=== PATIENT | female | born 1955 | race Caucasian/White ===

== ENCOUNTER → 2017-12-19 12:47 | Outpatient (CLI) | payer OTHER, SELFPAY ==
--- NOTE | 2017-12-19 12:50 | RAD_ITS ---
STUDY: X-RAY CHEST REASON FOR EXAM: Female, 62 years old. Fever. Prior right mastectomy. TECHNIQUE: PA and lateral views of the chest. COMPARISON: Comparison is made with prior study dated February 04, 2017. FINDINGS: The patient is status post right mastectomy and right axillary dissection with reconstruction. A left-sided breast prosthesis is seen. Hyperinflation. Stable opacification of the right apex most likely secondary to prior radiation treatment and post radiation scarring. Stable mild increased markings at the lung bases suggestive of scarring. No acute infiltration is seen. Normal size heart. Normal mediastinum and mariel. Normal visualized pulmonary arteries. There is atherosclerotic calcification of the aortic arch with tortuosity. There are degenerative changes of the visualized thoracic spine. Normal visualized ribs, clavicles, and shoulders. There is no demonstrated abnormality of the visualized soft tissue structures of the upper abdomen. RAD/Chest PA and Lateral IMPRESSION: Stable examination. No acute pulmonary infiltrate is seen. Electronically Signed: Dilip Doe MD at 13:34 EST Tel [phone], Service support ,
== END ==
PROVIDERS: Family Provider Internal Medicine; PCP Internal Medicine; Visit Provider Internal Medicine
DX: R50.9 Fever, unspecified (principal); Z90.11 Acquired absence of right breast and nipple
CPT/HCPCS: 71046

== ENCOUNTER → 2018-09-05 11:02 | Outpatient (CLI) | payer OTHER, SELFPAY ==
--- NOTE | 2018-09-05 11:05 | RAD_ITS ---
STUDY: X-RAY CHEST REASON FOR EXAM: Female, 63 years old. Sternal fracture, prior mastectomy TECHNIQUE: PA and lateral views of the chest. COMPARISON: 12/19/2017 FINDINGS: Multiple surgical clips of the right axilla and chest identified. Lungs are hyperexpanded with coarsened interstitial lung markings but no airspace consolidation. There is pleural fibrotic thickening of the right lung apex. Normal size heart. Normal mediastinum and mariel. Normal visualized pulmonary arteries. There is atherosclerotic calcification of the aortic arch with tortuosity. There is a cortical step-off of the upper sternum (2 cm below the sternomanubrial joint) with approximately 3 mm cortical step-off. There is diffuse osteopenia. There is no demonstrated abnormality of the visualized soft tissue structures of the upper abdomen. RAD/Chest PA and Lateral IMPRESSION: 1. Minimally displaced sternal fracture. 2. Operative changes of the right breast/axilla. 3. Stable right apical pleural thickening. Electronically Signed: Daniel Rosario MD at 19:14 EST , Service support ,
== END ==
PROVIDERS: Family Provider Internal Medicine; PCP Internal Medicine; Visit Provider Internal Medicine
DX: S22.20XA Unspecified fracture of sternum, initial encounter for closed fracture (principal); X58.XXXA Exposure to other specified factors, initial encounter; Y93.9 Activity, unspecified; Y92.9 Unspecified place or not applicable; Y99.9 Unspecified external cause status
CPT/HCPCS: 71046

== ENCOUNTER → 2018-10-06 12:32 | Outpatient (CLI) | payer OTHER, SELFPAY ==
--- NOTE | 2018-10-06 12:51 | RAD_ITS ---
STUDY: X-RAY CHEST REASON FOR EXAM: Female, 63 years old. History of vasculitis, microscopic polyangiitis, lungs filled with blood, shortness of breath TECHNIQUE: PA and lateral views of the chest. COMPARISON: 09/05/2018 FINDINGS: Multiple surgical clips of the right axilla and chest identified. Lungs are hyperexpanded with coarsened interstitial lung markings but no airspace consolidation. There is pleural fibrotic thickening of the right lung apex. Normal size heart. Normal mediastinum and mariel. Normal visualized pulmonary arteries. There is atherosclerotic calcification of the aortic arch with tortuosity. There is a cortical step-off of the upper sternum (2 cm below the sternomanubrial joint) with approximately 3 mm cortical step-off. There is diffuse osteopenia. There is no demonstrated abnormality of the visualized soft tissue structures of the upper abdomen. RAD/Chest PA and Lateral IMPRESSION: 1. Since 09/05/2018, stable exam. 2. Minimally displaced sternal fracture. 3. Operative changes of the right breast/axilla. 4. Stable right apical pleural thickening. Electronically Signed: Daniel Rosario MD at 10:32 EST , Service support ,
== END ==
PROVIDERS: Family Provider Internal Medicine; PCP Internal Medicine Pulmonary Disease; Visit Provider Internal Medicine Pulmonary Disease
DX: R04.2 Hemoptysis (principal)
CPT/HCPCS: 71046

== ENCOUNTER → 2019-05-08 13:20 | Outpatient (CLI) | payer OTHER, SELFPAY ==
--- NOTE | 2019-05-08 13:28 | BD_ITS ---
STUDY: DUAL ENERGY X-RAY ABSORPTIOMETRY / DXA REASON FOR EXAM: Female, 64 years old. Early menopause. Loss of height. TECHNIQUE: Bone Mineral Density (BMD) measurements of lumbar spine and bilateral hips were obtained. COMPARISON: Comparison is made with prior study dated January 18, 2017. FINDINGS: Lumbar Spine (L1-L4): g/cm2 (1.113) / T-score (-0.4) / Z-score (1.0) Findings are suggestive of normal bone density with a low fracture risk. Left Femur Total: g/cm2 (0.902) / T-score (-0.8) / Z-score (0.2) Left Femoral Neck: g/cm2 (0.859) / T-score (-1.3) / Z-score (0.1) Right Femur Total: g/cm2 (0.902) / T-score (-0.8) / Z-score (0.3) Right Femoral Neck: g/cm2 (0.784) / T-score (-1.8) / Z-score (-0.5) The T-Scores on the most recent prior examination were: Lumbar Spine (L1-L4): There has been improvement of bone density since the previous examination. Left Femur Total: which represents a worsening of 6.5%. Right Femur Total: which represents a worsening of 7%. BD/Dexa Bone Density Study IMPRESSION: The patient is considered osteopenic as outlined below according to World Joselo Organization (WHO) criteria with a moderate fracture risk. There has been worsening of bone density since the previous examination. Reference Information: The T-score is the number of standard deviations above or below the standard which is normal for young adults at their peak bone mineral density. The World Health Organization (WHO) interprets the T-scores as follows: Above -1 Normal bone density Between -1 and -2.5 Osteopenia Equal to / or below -2.5 Osteoporosis As a practical clinical guideline, osteopenia may be graded as follows: Mild -1 through -1.5 Moderate -1.6 through -2.0 Severe -2.1 through -2.4 The Z-score is the number of standard deviations above or below age-matched controls. A Z-score of less than -1.5 would be considered abnormal. References: 1. NIH Osteoporosis and Related Bone Diseases http://www.osteo.org 2. International Society for Clinical Densitometry http://www.iscd.org 3. National Osteoporosis Foundation http://www.nof.org Electronically Signed: Dilip Doe, at 14:41 EDT , Service support ,
== END ==
PROVIDERS: Family Provider Internal Medicine; PCP Internal Medicine; Referring Provider Internal Medicine; Visit Provider Internal Medicine
DX: Z78.0 Asymptomatic menopausal state (principal)
CPT/HCPCS: 77080

== ENCOUNTER → 2019-05-14 06:32 | Outpatient (CLI) | payer OTHER, SELFPAY ==
--- NOTE | 2019-05-14 06:46 | ECHOCS_ITS ---
Reason For Study: ABNL EKG Procedure This was a 2D Doppler, Color Flow transthoracic echocardiogram. The study was technically difficult. Contrast injection was performed. Exam performed in department. Left Ventricle Normal LV size. Left ventricular systolic function is normal. The estimated ejection fraction is 60 %. Stage 1 diastolic dysfunction. No regional wall motion abnormalities noted. Right Ventricle Normal RV size. Normal systolic function. Atria Normal left atrium. Normal right atrium. Mitral Valve Normal mitral valve. Tricuspid Valve Normal tricuspid valve. Mild tricuspid valve insufficiency. Aortic Valve Trisinus/trileaflet aortic valve. Pulmonic Valve Normal pulmonic valve. Great Vessels Normal aortic root. The pulmonary artery is normal size. Normal inferior vena cava. Pericardium/Pleural No pericardial effusion. Medication Diluted definity 4.0ml given slow IV push to enhance endocardial definition. MMode/2D Measurements & Calculations LVIDd: 5.2 cm IVSd: 1.1 cm Ao root diam: 3.3 cm LVIDs: 3.6 cm LVPWd: 1.2 cm RVDd: 3.5 cm FS: 29.7 % LAV(MOD-bp): 66.4 ml LA A4 area: 18.8 cm2 LA dimension(2D): 3.4 cm LAV(MOD-bp) Indexed: 35.0 ml/m2 LAV(MOD-sp2): 62.3 ml LAV(MOD-sp4): 56.8 ml RA A4 area: 15.7 cm2 Time Measurements MV dec time: 0.18 sec Doppler Measurements & Calculations MV E max felipe: 67.4 cm/sec Lat Peak E' Felipe: 9.4 cm/sec Med Peak E' Felipe: 3.8 cm/sec MV A max felipe: 84.6 cm/sec E/E' lat: 7.2 E/E' med: 17.7 MV E/A: 0.80 Ao V2 max: 147.7 cm/sec LV V1 max: 93.1 cm/sec PA V2 max: 74.6 cm/sec Ao max P.7 mmHg LV V1 max P.5 mmHg TR max felipe: 250.9 cm/sec TR max P.2 mmHg Interpretation Summary Normal LV size. Left ventricular systolic function is normal. The estimated ejection fraction is 60 %. Stage 1 diastolic dysfunction. Contrast injection was performed. Ordering Physician: Kori Baum Referring Physician: Kori Baum Performed By: Marifer Torres RDCS, RVT
--- NOTE | 2019-05-14 17:34 | STRESSREP ---
Stress Test Report Exercise myocardial perfusion stress test. 64-year-old lady with an abnormal EKG. Medications carvedilol and Norvasc. Stress protocol. Resting EKG demonstrates sinus bradycardia with a rate of 56 bpm T wave inversions are noted in lead V3 through V6. The patient exercised according to regular Franky protocol for total duration of 7 minutes and 45 seconds. The maximum heart rate attained was 112 bpm which was 71% of maximum predicted heart rate and maximum workload was 9.7 metabolic equivalents. Patient maintained sinus rhythm throughout the recording. At rest T wave inversions were noted as noted above and at peak exercise T wave inversions persisted. There were no ST changes noted to suggest ischemia. The test was terminated due to leg discomfort and shortness of breath. The resting blood pressures 128/84 with a peak blood pressure 144/88 mmHg. Myocardial perfusion protocol. 11.7 mCi of technetium 99m sestamibi was injected at rest. The patient exercised for 7 minutes 45 seconds at peak exercise 32.5 mCi of technetium 99m sestamibi was injected stress images were obtained stress and rest images are reconstructed and compared in the short axis vertical and horizontal long axis. Gated images were also obtained Perfusion SPECT analysis: Review of the stress images demonstrate normal uptake of tracer noted in all areas of the myocardium. The resting images similar demonstrate normal uptake in all areas of the myocardium no previous infarct is noted. Gated SPECT analysis: The gated ejection fraction is noted to be 73%. Conclusion: Normal exercise myocardial perfusion stress test at a high workload. No clinical angina noted. Occasional premature ventricular complex noted.
== END ==
PROVIDERS: Family Provider Internal Medicine; PCP Internal Medicine; Referring Provider Internal Medicine; Visit Provider Internal Medicine
DX: R94.31 Abnormal electrocardiogram [ECG] [EKG] (principal)
CPT/HCPCS: 78452; 93017; 93306; A9500; Q9957; A4216; C8929

== ENCOUNTER → 2019-07-17 08:42 | Outpatient (CLI) | payer OTHER, SELFPAY ==
--- NOTE | 2019-07-17 08:45 | RAD_ITS ---
STUDY: X-RAY - LEFT FOOT CLINICAL: Female, 64 years old. Pain and swelling TECHNIQUE: 3 view(s) of the foot. COMPARISON: None. FINDINGS: Periosteal reaction is noted along the lateral base of the fifth metatarsal which could be related to osteomyelitis. Hindfoot osteoarthritis. No fractures or osteolytic lesions. Plantar calcaneus spur. RAD/Foot min 3 Views IMPRESSION: Periosteal reaction is noted along the lateral base of the fifth metatarsal which could be related to osteomyelitis. If there is further concern for osteomyelitis, consider correlation with three-phase bone scan or contrast-enhanced MRI. Electronically Signed: Luke Whelan MD at 20:42 EDT Tel , Service support ,
--- NOTE | 2019-07-17 08:45 | RAD_ITS ---
STUDY: X-RAY - RIGHT HUMERUS REASON FOR EXAM: Female, 64 years old. Pain and breast cancer without injury TECHNIQUE: 2 view(s) of the humerus. COMPARISON: None. FINDINGS: Normal visualized humerus. There is no demonstrated fracture or osseous destructive process. There is no demonstrated soft tissue abnormality. Axillary clips. RAD/Humerus min 2 Views IMPRESSION: No osseous abnormality is evident. Electronically Signed: Luke Whelan MD at 21:36 EDT Tel , Service support ,
== END ==
PROVIDERS: Family Provider Internal Medicine; PCP Internal Medicine; Referring Provider Internal Medicine; Visit Provider Internal Medicine
DX: M79.672 Pain in left foot (principal); M79.601 Pain in right arm
CPT/HCPCS: 73060; 73630

== ENCOUNTER → 2019-07-18 12:14 | Outpatient (CLI) | payer OTHER, SELFPAY ==
[2019-07-18 12:23] LABS: Absolute Lymphocyte Count 1.31 X10^3/uL (0.83-4.51); Absolute Neutrophil Count 2.8 X10^3/uL (2.0-7.7); Basophil# 0.02 X10^3/uL; Basophil% 0.4 % (0-1); Hematocrit 40.4 % (37-47); Hemoglobin 13.3 g/dL (12.0-15.0); Lymphocyte # 1.31 X10^3/ul (4.0); Lymphocyte % 26.1 % (19-41); Mean Corp Hgb Conc 32.9 g/dL (32-36); Mean Corpuscular Hgb 28.7 pg (27.0-32.0); Mean Corpuscular Volume 87.1 fL (81-99); Mean Platelet Vol. 9.6 fl (6.2-12.0); Monocyte# 0.65 X10^3/uL; NRBC Flagged by Analyzer 0 % (0-5); Neutrophil # 2.81 X10^3/uL (2.7-7.7); Neutrophil % 56.1 % (47-70); Platelet Count 304 K/mm3 (150-450); RBC Distribution Width CV 13.3 % (11.6-14.6); RBC Distribution Width SD 42.5 fl (35.1-43.9); Red Blood Count 4.64 M/mm3 (4.2-5.4)
[2019-07-18 12:33] LABS: Erythrocyte Sedimentation Rate 9 mm/hr (0-30)
[2019-07-18 12:41] LABS: Anion Gap 11 (5-15); BUN 16 mg/dL (7-18); BUN/Creat Ratio 23.2 RATIO (10-20); CRP 3.56 mg/L (0.0-3.0); Calcium,Total 8.6 mg/dL (8.5-10.1); Chloride 102 mmol/L (98-107); Creatinine, Serum 0.69 mg/dL (0.55-1.02); EST Glomerular Filtration Rate 91 mL/min (>60); Est Glom Filt Rate - Afr Amer 111 mL/min (>60); Glucose 117 mg/dL (74-106); Potassium 3.7 mmol/L (3.5-5.1); Sodium Level 143 mmol/L (136-145)
== END ==
PROVIDERS: Family Provider Internal Medicine; PCP Internal Medicine; Referring Provider Internal Medicine; Visit Provider Internal Medicine
DX: M79.672 Pain in left foot (principal)
CPT/HCPCS: 80048; 85025; 85652; 86140

== ENCOUNTER → 2019-07-18 14:05 | Outpatient (CLI) | payer OTHER, SELFPAY ==
--- NOTE | 2019-07-18 14:26 | MRI_ITS ---
STUDY: MRI LEFT FOREFOOT WITH AND WITHOUT CONTRAST REASON FOR EXAM: Female, 64 years old. Pain of the fifth toe. Patient is on immune suppressant medication. TECHNIQUE: Standardized fat and water weighted pulse sequences were obtained in all 3 orthogonal planes, post contrast administration. IV Dotarem 15 was administered for the contrast portion of the examination. COMPARISON: X-ray July 17, 2019 FINDINGS: There is degenerative arthrosis of the metatarsophalangeal joint of the hallux. There is cystic change of the first metatarsal head. Normal tibial and fibular sesamoids, with normal sesamoids-first metatarsal articulations. Normal interphalangeal joint of the hallux. Normal proximal and distal phalanges of the great toe. Normal medial and lateral heads of the flexor hallucis brevis tendons. Normal flexor and extensor hallucis longus tendons. Normal second through fifth metatarsophalangeal (MTP) joints. Normal interphalangeal joints of the second through fifth toes. Normal proximal, middle and distal phalanges of the second through fifth toes. Normal flexor and extensor tendons of the second through fifth toes. Normal first through fourth intermetatarsal spaces. There is marrow edema with enhancement of the distal shaft and neck of the fifth metatarsal, series 8 and 9 image 03/14. There is cystic change at the fifth metatarsal head. There is mild spurring at the fifth MTP joint. Normal intrinsic muscles of the forefoot. There is no demonstrated soft tissue abnormality. There is no enhancing mass. MRI/Lower Ext No Joint W/WO Cont IMPRESSION: Marrow edema and enhancement of the distal fifth metatarsal consistent with stress injury. Arthritic change at the first and fifth MTP joints. Electronically Signed: Eladio Souza MD at 16:02 EDT , Service support ,
== END ==
PROVIDERS: Family Provider Internal Medicine; PCP Internal Medicine; Referring Provider Internal Medicine; Visit Provider Internal Medicine
DX: M79.672 Pain in left foot (principal)
CPT/HCPCS: 73720; A9575

== ENCOUNTER → 2019-09-06 09:54 | Outpatient (CLI) | payer OTHER, SELFPAY ==
--- NOTE | 2019-09-06 09:55 | NM_ITS ---
CLINICAL: 64-year-old female with reported history of primary breast carcinoma WHOLE BODY 99m Tc MDP RADIONUCLIDE BONE SCINTIGRAPHY COMPARISON: Previous whole body bone scintigraphy study dated 12/09/2015 FINDINGS: Following the intravenous administration of 26.0 mCi of 99m Tc MDP, whole body bone images reveal: 1. Increased radiopharmaceutical concentration is currently identified in the acromioclavicular and sternoclavicular compartments of both shoulders, bilateral elbow articulations, right hip involving the inferior posterior acetabulum, right-left knees, ankles bilaterally, the right-left mid and forefoot, both sacroiliac joints. 2. The remaining skeletal structures are scintigraphically unremarkable with normal-appearing renal images and urinary bladder activity identified. The previously identified fifth lumbar vertebral increase in tracer distribution is not apparent on the present examination. NM/Bone Scan Whole Body IMPRESSION: 1. The increased radiopharmaceutical concentration defined in the bilateral shoulders, right and left elbows, right hip, knees and ankles bilaterally, right-left mid and forefoot and sacroiliac joints is commensurate with degenerative arthritis. 2. Overall compared to the previous whole body bone scintigraphy study dated 12/09/2015, there is interval resolution of the previously defined fifth lumbar vertebra compression fracture with otherwise no significant interval change. There is no current typical scintigraphic evidence of diffuse skeletal metastatic disease. Electronically Signed: Markell Singleton DO at 9:55 EST Tel , Service support ,
== END ==
PROVIDERS: Family Provider Internal Medicine; PCP Internal Medicine; Referring Provider Internal Medicine; Visit Provider Internal Medicine
DX: Z12.31 Encounter for screening mammogram for malignant neoplasm of breast (principal); R74.8 Abnormal levels of other serum enzymes
CPT/HCPCS: 78306

== ENCOUNTER → 2019-11-02 11:03 | Outpatient (CLI) | payer OTHER, SELFPAY ==
--- NOTE | 2019-11-02 11:08 | RAD_ITS ---
STUDY: X-RAY - LEFT FOOT CLINICAL: Female, 64 years old. DROPPED A HEAVY OBJECT ON GREAT TOE 2 DAYS AGO TECHNIQUE: 3 view(s) of the foot. COMPARISON: Comparison is made with prior examination July 17, 2019. FINDINGS: There is a plantar calcaneal spur. Normal visualized subtalar, talonavicular, calcaneocuboid, tarsal and tarsometatarsal articulations. Normal metatarsi. Normal metatarsophalangeal joint of the great toe. Normal tibial and fibular sesamoid bones. Normal interphalangeal joint of the great toe. Nondisplaced transverse fracture along the distal portion of the proximal phalanx of the great toe. Normal second through fifth metatarsophalangeal joints. Normal interphalangeal joints and phalanges of the lesser toes. Soft tissue swelling overlying the great toe. Focal soft tissue defect is seen overlying the distal tuft of the distal phalanx of the great toe. RAD/Foot min 3 Views IMPRESSION: Nondisplaced transverse fracture in the distal aspect of the proximal fillings of the great toe with overlying soft tissue changes as described. Electronically Signed: Dilip Doe, at 12:16 EST , Service support ,
== END ==
PROVIDERS: PCP Internal Medicine; Referring Provider Internal Medicine; Visit Provider Internal Medicine
DX: M79.672 Pain in left foot (principal)
CPT/HCPCS: 73630

== ENCOUNTER → 2019-11-16 09:52 | Outpatient (CLI) | payer OTHER, SELFPAY ==
[2019-11-16 10:17] LABS: Erythrocyte Sedimentation Rate 6 mm/hr (0-30)
[2019-11-16 10:21] LABS: Absolute Lymphocyte Count 1.37 X10^3/uL (0.83-4.51); Absolute Neutrophil Count 3.7 X10^3/uL (2.0-7.7); Basophil# 0.02 X10^3/uL; Basophil% 0.3 % (0-1); Eosinophil# 0.31 X10^3/uL; Hematocrit 44.8 % (37-47); Hemoglobin 14.7 g/dL (12.0-15.0); Lymphocyte # 1.37 X10^3/ul (4.0); Lymphocyte % 22.3 % (19-41); Mean Corp Hgb Conc 32.8 g/dL (32-36); Mean Corpuscular Hgb 28.7 pg (27.0-32.0); Mean Corpuscular Volume 87.5 fL (81-99); Mean Platelet Vol. 9.9 fl (6.2-12.0); Monocyte# 0.68 X10^3/uL; Monocyte% 11.1 % (0-10); NRBC Flagged by Analyzer 0 % (0-5); Neutrophil # 3.74 X10^3/uL (2.7-7.7); Neutrophil % 60.8 % (47-70); Platelet Count 325 K/mm3 (150-450); RBC Distribution Width CV 13.2 % (11.6-14.6); RBC Distribution Width SD 42.4 fl (35.1-43.9); Red Blood Count 5.12 M/mm3 (4.2-5.4); White Blood Count 6.2 K/mm3 (4.4-11.0)
[2019-11-16 11:27] LABS: ALB/GLOB Ratio 1.3 RATIO (0.9-2.4); AST(SGOT) 16 U/L (15-37); Alanine Aminotransfer ALT/SGPT 29 U/L (13-56); Albumin, Serum 3.8 g/dL (3.2-5.0); Alkaline Phosphatase 125 U/L (45-117); Anion Gap 4 (5-15); BUN 17 mg/dL (7-18); BUN/Creat Ratio 19.6 RATIO (10-20); Calcium,Total 9.4 mg/dL (8.5-10.1); Chloride 107 mmol/L (98-107); Creatinine, Serum 0.87 mg/dL (0.55-1.02); EST Glomerular Filtration Rate 70 mL/min (>60); Est Glom Filt Rate - Afr Amer 85 mL/min (>60); Glucose 74 mg/dL (74-106); Potassium 3.4 mmol/L (3.5-5.1); Protein, Total 6.8 g/dL (6.4-8.2); Sodium Level 142 mmol/L (136-145)
== END ==
PROVIDERS: PCP Internal Medicine; Referring Provider Internal Medicine; Visit Provider Internal Medicine
DX: L03.90 Cellulitis, unspecified (principal)
CPT/HCPCS: 80053; 85025; 85652; 86140

== ENCOUNTER → 2019-11-16 15:49 | Outpatient (CLI) | payer OTHER, SELFPAY ==
--- NOTE | 2019-11-16 15:52 | RAD_ITS ---
STUDY: X-RAY LEFT FOOT, FIRST TOE REASON FOR EXAM: Female, 64 years old. INFECTION, PT DROPPED A PIECE OF FIREWOOD ON TOES 2 WEEKS AGO, SWELLING AND REDNESS STARTED 1 DAY AGO, PT IS ON IMMUNOSUPRESSANTS TECHNIQUE: 3 view(s) of the toe were obtained. COMPARISON: None. FINDINGS: Hypertrophic changes of the head of the first metatarsal. There is arthrosis of the metatarsophalangeal (M.T.P.) joint. Mild degenerative changes of the interphalangeal joint. Acute transverse distal diaphyseal fracture of the proximal phalanx of the great toe mild dorsal displacement and angulation with callus forming. Diffuse soft tissue swelling. RAD/Toe(s) Min 2 Views IMPRESSION: Acute transverse distal diaphyseal fracture of the proximal phalanx of the great toe with mild dorsal displacement and angulation with callus forming. Degenerative arthrosis of the first metatarsophalangeal joint. Mild degenerative changes of the interphalangeal joint. Electronically Signed: Brittaney Houser MD at 16:27 EST , Service support ,
== END ==
PROVIDERS: PCP Internal Medicine; Referring Provider Internal Medicine; Visit Provider Internal Medicine
DX: L03.90 Cellulitis, unspecified (principal)
CPT/HCPCS: 73660

== ENCOUNTER → 2019-11-19 14:08 | Outpatient (CLI) | payer OTHER, SELFPAY ==
[2019-11-19 14:22] VITALS: BP 128/83; PULSE 66; RESP 16; TEMP 36.4; O2SAT 97; BMI 25.0
[2019-11-19] MEDS: levoFLOXacin IV 500 MG/100 ML BAG 100 MG IV (14:53)
== END ==
PROVIDERS: PCP Internal Medicine; Referring Provider Internal Medicine; Visit Provider Internal Medicine
DX: L08.9 Local infection of the skin and subcutaneous tissue, unspecified (principal)
CPT/HCPCS: 96365; 96366; J7050; A4216

== ENCOUNTER → 2019-11-20 11:32 | Outpatient (CLI) | payer OTHER, SELFPAY ==
[2019-11-19 14:22] VITALS: BMI 25.0
[2019-11-20 11:46] VITALS: BP 128/70; PULSE 58; RESP 16; TEMP 36.4; O2SAT 98; BMI 25.0
[2019-11-20] MEDS: levoFLOXacin IV 500 MG/100 ML BAG 100 MG IV (12:06)
== END ==
PROVIDERS: PCP Internal Medicine; Referring Provider Internal Medicine; Visit Provider Internal Medicine
DX: L08.9 Local infection of the skin and subcutaneous tissue, unspecified (principal)
CPT/HCPCS: 96365; J7050; A4216

== ENCOUNTER → 2019-11-21 10:50 | Outpatient (CLI) | payer OTHER, SELFPAY ==
[2019-11-19 14:22] VITALS: BMI 25.0
[2019-11-20 11:46] VITALS: BMI 25.0
[2019-11-21 11:02] VITALS: BP 120/82; PULSE 63; RESP 18; TEMP 36.2; O2SAT 100; BMI 24.3
[2019-11-21] MEDS: levoFLOXacin IV 500 MG/100 ML BAG 100 MG IV (11:13)
[2019-11-21 12:28] VITALS: BP 108/68; PULSE 65; RESP 16
== END ==
PROVIDERS: PCP Internal Medicine; Referring Provider Internal Medicine; Visit Provider Internal Medicine
DX: L08.9 Local infection of the skin and subcutaneous tissue, unspecified (principal)
CPT/HCPCS: 96365; J7050; A4216

== ENCOUNTER → 2019-11-22 09:03 | Outpatient (CLI) | payer OTHER, SELFPAY ==
[2019-11-21 11:02] VITALS: BMI 24.3
[2019-11-22 09:11] VITALS: BP 124/69; PULSE 60; RESP 16; TEMP 36.4; O2SAT 98; BMI 24.3
[2019-11-22] MEDS: levoFLOXacin IV 500 MG/100 ML BAG 100 MG IV (09:21)
== END ==
PROVIDERS: PCP Internal Medicine; Referring Provider Internal Medicine; Visit Provider Internal Medicine
DX: L08.9 Local infection of the skin and subcutaneous tissue, unspecified (principal)
CPT/HCPCS: 96365; J7050; A4216

== ENCOUNTER → 2019-11-23 13:23 | Outpatient (CLI) | payer OTHER, SELFPAY ==
[2019-11-22 09:11] VITALS: BMI 24.3
[2019-11-23] MEDS: levoFLOXacin IV 500 MG/100 ML BAG 100 MG IV (13:42)
[2019-11-23 13:43] VITALS: BP 128/75; PULSE 66; RESP 163; TEMP 36.7; BMI 24.3
[2019-11-23 15:00] VITALS: BP 123/74; PULSE 70; RESP 16
== END ==
PROVIDERS: PCP Internal Medicine; Referring Provider Internal Medicine; Visit Provider Internal Medicine
DX: L08.9 Local infection of the skin and subcutaneous tissue, unspecified (principal)
CPT/HCPCS: 96365; J7050; A4216

== ENCOUNTER → 2020-01-23 13:19 | Outpatient (CLI) | payer OTHER, SELFPAY ==
[2019-11-23 13:43] VITALS: BMI 24.3
[2020-01-23 13:12] VITALS: BP 135/70; PULSE 60; RESP 14; TEMP 36.3; O2SAT 100; BMI 25.8
[2020-01-23] MEDS: 0.9% NaCl IVPB Med Flush (250 mL) 15 ML IV (13:25)
[2020-01-23] MEDS: 0.9% NaCl Peripheral Flush Adult/Peds IV (13:26)
[2020-01-23] MEDS: levoFLOXacin IV 500 MG/100 ML BAG 100 MG IV (13:26)
[2020-01-23 14:51] VITALS: BP 130/78; PULSE 61; O2SAT 97
== END ==
PROVIDERS: PCP Internal Medicine; Referring Provider Internal Medicine; Visit Provider Internal Medicine
DX: L08.9 Local infection of the skin and subcutaneous tissue, unspecified (principal)
CPT/HCPCS: 96365; 96366; J7050; A4216

== ENCOUNTER → 2020-01-24 12:59 | Outpatient (CLI) | payer OTHER, SELFPAY ==
[2019-11-23 13:43] VITALS: BMI 24.3
[2020-01-23 13:12] VITALS: BMI 25.8
[2020-01-24 13:09] VITALS: BP 139/81; PULSE 61; RESP 16; TEMP 35.9; O2SAT 100; BMI 25.8
[2020-01-24] MEDS: levoFLOXacin IV 500 MG/100 ML BAG 100 MG IV (13:19)
[2020-01-24] MEDS: 0.9% NaCl IVPB Med Flush (250 mL) 15 ML IV (13:19)
[2020-01-24] MEDS: 0.9% NaCl Peripheral Flush Adult/Peds IV (13:19)
== END ==
PROVIDERS: PCP Internal Medicine; Referring Provider Internal Medicine; Visit Provider Internal Medicine
DX: L08.9 Local infection of the skin and subcutaneous tissue, unspecified (principal)
CPT/HCPCS: 96365; 96366; J7050; A4216

== ENCOUNTER → 2020-01-25 13:00 | Outpatient (CLI) | payer OTHER, SELFPAY ==
[2019-11-23 13:43] VITALS: BMI 24.3
[2020-01-24 13:09] VITALS: BMI 25.8
[2020-01-25] MEDS: 0.9% NaCl IVPB Med Flush (250 mL) 15 ML IV (13:33)
[2020-01-25] MEDS: levoFLOXacin IV 500 MG/100 ML BAG 100 MG IV (13:33)
[2020-01-25 13:34] VITALS: BP 127/67; PULSE 63; RESP 16; TEMP 37.2; O2SAT 99; BMI 25.8
== END ==
PROVIDERS: PCP Internal Medicine; Referring Provider Internal Medicine; Visit Provider Internal Medicine
DX: L08.9 Local infection of the skin and subcutaneous tissue, unspecified (principal)
CPT/HCPCS: 96365; J7050

== ENCOUNTER → 2020-01-28 09:58 | Outpatient (CLI) | payer OTHER, SELFPAY ==
[2019-11-23 13:43] VITALS: BMI 24.3
[2020-01-25 13:34] VITALS: BMI 25.8
--- NOTE | 2020-01-28 10:04 | MRI_ITS ---
STUDY: MRI LEFT FOREFOOT WITH AND WITHOUT CONTRAST REASON FOR EXAM: Left foot swelling with infection of the fifth toe since July, fracture the great toe in October, evaluate for osteomyelitis. TECHNIQUE: Standardized fat and water weighted pulse sequences were obtained in all 3 orthogonal planes, post contrast administration. IV Dotarem 15ml was administered for the contrast portion of the examination. COMPARISON: Radiographs 11/16/2019 and 11/02/2019, and MRI images 07/18/2019. FINDINGS: There is mild arthrosis of the metatarsophalangeal joint of the hallux with mild chondral thinning and mild subchondral cystic change of the first metatarsal head (T2 series 4 image 14). Normal tibial and fibular sesamoids, with normal sesamoids-first metatarsal articulations. Normal interphalangeal joint of the hallux. There is interval development of a nondisplaced fracture of the first proximal phalanx since the prior MRI study with callus formation (inversion recovery sagittal images 22-24). Normal medial and lateral heads of the flexor hallucis brevis tendons. Normal flexor and extensor hallucis longus tendons. Normal second through fifth metatarsophalangeal (MTP) joints. Normal interphalangeal joints of the second through fifth toes. Normal proximal, middle and distal phalanges of the second through fifth toes. There specifically is no bone edema of the phalanges of the fifth toe to indicate osteomyelitis. Normal flexor and extensor tendons of the second through fifth toes. Normal first through fourth intermetatarsal spaces. There is mild cystic change of the head of the fifth metatarsal (inversion recovery sagittal image 7) as on the prior study. There is no signal alteration of the metatarsals to indicate osteomyelitis. There is mild arthrosis of the fourth and fifth tarsometatarsal articulations with mild chondral thinning and mild subchondral cystic change (inversion recovery sagittal images 10-12) as on the prior study. There is mild arthrosis of the second and third tarsometatarsal articulations with mild chondral thinning and mild subchondral bone edema of the distal lateral and middle cuneiforms (inversion recovery sagittal images 12-19) as on the prior study. Normal intrinsic muscles of the forefoot. There is callus formation at the plantar and lateral aspects of the fifth metatarsophalangeal joint (T1 series 5 images 12-15) as on the prior study. There is no contrast enhancing fluid collection to indicate soft tissue abscess. There is mild edema in the subcutis adipose base of the first toe. MRI/Lower Ext No Joint W/WO Cont IMPRESSION: Callus formation at the plantar and lateral aspects of the fifth metatarsophalangeal joint without demonstrated soft tissue abscess. No demonstrated osteomyelitis. Healing fracture of the first proximal phalanx. Mild arthrosis of the first metatarsophalangeal joint and second through fifth tarsometatarsal articulations. Electronically Signed: Ralph Mejía MD at 12:41 EDT Tel , Service support ,
[2020-01-28 10:35] LABS: CREATININE FINGERSTICK 0.8 mg/dL (0.55-1.02); EGFR FINGERSTICK > 60.0000 mL/min (>60)
== END ==
PROVIDERS: PCP Internal Medicine; Referring Provider Internal Medicine; Visit Provider Internal Medicine
DX: M79.89 Other specified soft tissue disorders (principal)
CPT/HCPCS: 73720; A9575

== ENCOUNTER → 2020-03-03 13:12 | Outpatient (CLI) | payer OTHER, SELFPAY ==
[2020-01-25 13:34] VITALS: BMI 25.8
[2020-03-03] MEDS: 0.9% NaCl IVPB Med Flush (250 mL) 15 ML IV (13:29)
[2020-03-03] MEDS: levoFLOXacin IV 500 MG/100 ML BAG 100 MG IV (13:35)
[2020-03-03 13:38] VITALS: BP 139/77; PULSE 69; RESP 16; TEMP 36; O2SAT 100; BMI 25.8
[2020-03-03] MEDS: 0.9% NaCl Peripheral Flush Adult/Peds IV (13:45)
== END ==
PROVIDERS: PCP Internal Medicine; Referring Provider Internal Medicine; Visit Provider Internal Medicine
DX: L08.9 Local infection of the skin and subcutaneous tissue, unspecified (principal)
CPT/HCPCS: 96365; 96366; J7050; A4216

== ENCOUNTER → 2020-03-04 14:32 | Outpatient (CLI) | payer OTHER, SELFPAY ==
[2020-01-25 13:34] VITALS: BMI 25.8
[2020-03-03 13:38] VITALS: BMI 25.8
[2020-03-04] MEDS: 0.9% NaCl Peripheral Flush Adult/Peds IV (14:46)
[2020-03-04] MEDS: levoFLOXacin IV 500 MG/100 ML BAG 100 MG IV (14:47)
[2020-03-04] MEDS: 0.9% NaCl IVPB Med Flush (250 mL) 15 ML IV (14:47)
[2020-03-04 14:49] VITALS: BP 129/73; PULSE 65; RESP 18; TEMP 37; O2SAT 96; BMI 25.8
== END ==
PROVIDERS: PCP Internal Medicine; Referring Provider Internal Medicine; Visit Provider Internal Medicine
DX: L08.9 Local infection of the skin and subcutaneous tissue, unspecified (principal)
CPT/HCPCS: 96365; J7050; A4216

== ENCOUNTER → 2020-03-05 14:27 | Outpatient (CLI) | payer OTHER, SELFPAY ==
[2020-01-25 13:34] VITALS: BMI 25.8
[2020-03-04 14:49] VITALS: BMI 25.8
[2020-03-05 14:33] VITALS: BP 137/76; PULSE 62; RESP 16; TEMP 36.5; O2SAT 98; BMI 25.8
[2020-03-05] MEDS: 0.9% NaCl IVPB Med Flush (250 mL) 15 ML IV (14:42)
[2020-03-05] MEDS: 0.9% NaCl Peripheral Flush Adult/Peds IV (14:42)
[2020-03-05] MEDS: levoFLOXacin IV 500 MG/100 ML BAG 100 MG IV (14:42)
== END ==
PROVIDERS: PCP Internal Medicine; Referring Provider Internal Medicine; Visit Provider Internal Medicine
DX: L08.9 Local infection of the skin and subcutaneous tissue, unspecified (principal)
CPT/HCPCS: 96365; J7050; A4216

== ENCOUNTER 2020-09-12 10:54 | Emergency (ER) | payer OTHER, SELFPAY ==
[2020-03-05 14:33] VITALS: BMI 25.8
[2020-09-12 10:55] VITALS: BP 144/67; PULSE 60; RESP 16; TEMP 36.7; O2SAT 100; BMI 24.3
[2020-09-12 11:39] LABS: Absolute Lymphocyte Count 0.97 X10^3/uL (0.83-4.51); Absolute Neutrophil Count 3.3 X10^3/uL (2.0-7.7); Basophil# 0.02 X10^3/uL; Basophil% 0.4 % (0-1); Eosinophil# 0.21 X10^3/uL; Hematocrit 42.9 % (37-47); Hemoglobin 13.9 g/dL (12.0-15.0); Lymphocyte # 0.97 X10^3/ul (4.0); Lymphocyte % 18.5 % (19-41); Mean Corp Hgb Conc 32.4 g/dL (32-36); Mean Corpuscular Hgb 28.1 pg (27.0-32.0); Mean Corpuscular Volume 86.8 fL (81-99); Mean Platelet Vol. 8.9 fl (6.2-12.0); Monocyte# 0.75 X10^3/uL; Monocyte% 14.3 % (0-10); NRBC Flagged by Analyzer 0 % (0-5); Neutrophil # 3.27 X10^3/uL (2.7-7.7); Neutrophil % 62.6 % (47-70); Platelet Count 260 K/mm3 (150-450); RBC Distribution Width CV 13.3 % (11.6-14.6); RBC Distribution Width SD 42.4 fl (35.1-43.9); Red Blood Count 4.94 M/mm3 (4.2-5.4); White Blood Count 5.2 K/mm3 (4.4-11.0)
--- NOTE | 2020-09-12 11:40 | RAD_ITS ---
STUDY: X-RAY CHEST REASON FOR EXAM: Female, 65 years old. FEVER 100.4 AT HOME. SORE THROAT. CHEST TIGHTNESS TECHNIQUE: Single AP portable view of the chest. COMPARISON: 10/06/2018 FINDINGS: Stable scarring in the right upper lobe. Stable COPD. No acute airspace disease. There is no demonstrated pleural abnormality. Normal size heart. Normal mediastinum and mariel. Normal visualized pulmonary arteries. Normal visualized aortic arch and descending thoracic aorta. Normal visualized thoracic spine. Normal visualized ribs, clavicles, and shoulders. Stable postsurgical changes of the right hemithorax There is no demonstrated abnormality of the visualized soft tissue structures of the upper abdomen. RAD/Chest 1 View (Portable) IMPRESSION: No acute cardiopulmonary disease Electronically Signed: Andrew Aguirre DO at 12:30 EST Tel , Service support ,
--- NOTE | 2020-09-12 11:45 | ED.VIS.GEN ---
History of Present Illness Informant: Patient Onset: Yesterday Narrative: 65-year-old female with past medical history of hypertension, hyperlipidemia, microscopic polyangiitis presents with complaints of fever, cough, sore throat, and chest tightness. She states last night she had a temperature of 100.4F and chills. This morning she feels midsternal chest tightness that is nonexertional, nonpleuritic. She also has a sore throat and a dry cough. Denies loss of taste or smell, productive cough, hemoptysis, shortness of breath, dyspnea on exertion, orthopnea, abdominal pain, nausea, vomiting, diarrhea, or rash. No known sick contacts. She states her PCP sent her in for blood work and a chest x-ray. She on rituximab infusions every 6 months for microscopic polyangiitis. <Dyan Salcedo - Last Filed: 09/12/20 12:54> <Yahir Jaramillo - Last Filed: 09/12/20 13:21> Chief Complaint: Fever Past Medical History Past Medical History: - - Hypertension, hyperlipidemia, microscopic polyangiitis Surgical History: hysterectomy, mastectomy Smoking Status: Never smoker <Dyan Salcedo - Last Filed: 09/12/20 12:54> <Yahir Jaramillo - Last Filed: 09/12/20 13:21> - Allergies and Home Meds Allergies/Adverse Reactions: Allergies No Known Allergies Allergy (Verified 09/12/20 10:55) Primary Care Physician: Kori Baum DO [Primary Care Provider] - Review of Systems General: Reports: Chills, Fever. Denies: Malaise, Sweats Eyes: Denies: Visual changes - bilaterally ENT: Reports: Sore throat. Denies: Bilateral ear pain, Rhinorrhea Cardiovascular: Reports: Chest pain Respiratory: Reports: Cough. Denies: Dyspnea, Sputum, Dyspnea on exertion, Orthopnea, Paroxysmal nocturnal dyspnea Gastrointestinal: Denies: Abdominal pain, Nausea, Vomiting, Diarrhea, Constipation, Melena, Hematochezia Genitourinary: Denies: Dysuria, Hematuria, Frequency Musculoskeletal: Denies: Myalgias Skin: Denies: Rash Neurological: Denies: Headache, Weakness, Parasthesia, Numbness <Dyan Salcedo - Last Filed: 09/12/20 12:54> Physical Exam Vital Signs/Narrative: Vital Signs Temp Pulse Resp BP Pulse Ox 09/12/20 10:55 98.1 F 60 16 144/67 H 100 General: Well nourished, Well developed, No Acute Distress Head: Normocephalic, Atraumatic Eyes: Perrl, EOMI ENT: Moist mucous membranes, No rhinorrhea Neck: Supple, Nontender Cardiovascular: Regular rate, Regular rhythm, No murmurs Respiratory: No distress, Chest nontender, - - very mild expiratory wheezing in lung bases Abdomen: Soft, Nontender, Nondistended, Normal bowel sounds Back: Nontender, Normal Inspection Extremities: Nontender, No edema Skin: Normal color, No rash Neurological: Alert, Oriented x3, Cranial nerves II-XII grossly intact, Normal Strength, Normal Sensation Psychological: Normal affect, Normal Mood <Dyan Salcedo - Last Filed: 09/12/20 12:54> Vital Signs/Narrative: Vital Signs Temp Pulse Resp BP Pulse Ox 09/12/20 12:58 59 L 16 94 09/12/20 10:55 98.1 F 60 16 144/67 H 100 <ClintYahir - Last Filed: 09/12/20 13:21> Diagnostic/Tx/Re-eval Clinical Impression(s) from Imaging Studies Chest X-Ray 09/12/20 11:40 IMPRESSION: No acute cardiopulmonary disease Electronically Signed: Andrew Aguirre DO at 12:30 EST Tel , Service support , Laboratory Data 09/12/20 09/12/20 09/12/20 11:19 11:19 11:19 WBC 5.2 RBC 4.94 Hgb 13.9 Hct 42.9 MCV 86.8 MCH 28.1 MCHC 32.4 RDW Std Deviation 42.4 RDW Coeff of Allyssa 13.3 Plt Count 260 MPV 8.9 Immature Gran % (Auto) 0.200 Neut % (Auto) 62.6 Lymph % (Auto) 18.5 L Ellis % (Auto) 14.3 H Eos % (Auto) 4.0 Baso % (Auto) 0.4 Absolute Neuts (auto) 3.3 Absolute Lymphs (auto) 0.97 Nucleated RBC % 0 Sodium 140 Potassium 3.0 L Chloride 104 Carbon Dioxide 30.0 Anion Gap 6 BUN 11 Creatinine 0.76 Estim Creat Clear Calc 78.15 Est GFR (MDRD) Af Amer 98 Est GFR (MDRD) Non-Af 81 BUN/Creatinine Ratio 14.4 Glucose 114 H Lactic Acid 1.3 Calcium 9.0 Total Bilirubin 0.40 AST 22 ALT 29 Alkaline Phosphatase 117 Total Protein 6.9 Albumin 3.6 Globulin 3.3 Albumin/Globulin Ratio 1.1 - Medical Decision Making Patient presented with reported fever, cough, sore throat, and chest tightness that started last night. He appears well nontoxic. Vital signs within normal limits. Heart is regular rate and rhythm. Lungs had scant wheezing in both bases. Labs show hypokalemia of 3.0 and she was given oral replacement. Lactate negative. Chest x-ray shows no acute process. COVID-19 antigen and rapid influenza are negative. I told her that with less than 24 hours of symptoms these may not be reliable. This could be Covid, flu, viral syndrome, or her autoimmune process. She is stable for outpatient management and I recommended Tylenol for further fevers or sore throat. Discussed signs and symptoms that would warrant return to the ED. She was given an albuterol inhaler for home and advised to increase hydration. She was discharged in stable condition. 1. Viral syndrome 2. Hypokalemia <Dyan Salcedo - Last Filed: 09/12/20 12:54> - Medical Decision Making An independent history and physical was performed by me. Patient was sent to the emergency department because of fever. Patient is on immunosuppressive meds to treat her autoimmune disorder. She reports document temperature of 100.4. She does report mild shortness of breath. She does have history of lung problems. She also has history of breast cancer. She denies loss of taste or smell. She denies exposure to anyone ill or with Covid. She reports mild head discomfort. Denies photophobia, neck pain or neck stiffness. Does report mild congestion. She does report decreased appetite. She reports nausea. She denies rash. Patient does not appear ill. Vital signs are noted. H EENT exam is unremarkable. Trachea is midline. Lungs reveal diminished breath sounds bilateral. There is a large posterior thoracotomy scar noted on the right that is well-healed. Heart is regular. There is no murmur, gallop or rub. Abdomen is soft nontender. Neuro exam is nonfocal. Differential would include fever due to autoimmune disorder, viral illness, pneumonia. Work-up was undertaken. Work-up was unremarkable. Covid test was negative. Plan is to discharge to home. <ClintYahir - Last Filed: 09/12/20 13:21> ED Disposition <Dyan Salcedo - Last Filed: 09/12/20 12:54> <Yahir Jaramillo - Last Filed: 09/12/20 13:21> - Plan for ED Patient: Disposition: Home or Assisted Living Diagnosis: Viral syndrome, Hypokalemia Instructions: ED Upper Resp Infec No Abx Tx Referrals: Kori Baum DO [Primary Care Provider] -
[2020-09-12 11:57] LABS: ALB/GLOB Ratio 1.1 RATIO (0.9-2.4); AST(SGOT) 22 U/L (15-37); Alanine Aminotransfer ALT/SGPT 29 U/L (13-56); Albumin, Serum 3.6 g/dL (3.2-5.0); Alkaline Phosphatase 117 U/L (45-117); Anion Gap 6 (5-15); BUN 11 mg/dL (7-18); BUN/Creat Ratio 14.4 RATIO (10-20); Chloride 104 mmol/L (98-107); Creatinine, Serum 0.76 mg/dL (0.55-1.02); EST Glomerular Filtration Rate 81 mL/min (>60); Est Glom Filt Rate - Afr Amer 98 mL/min (>60); Estimated Creatinine Clearance 78.15 ml/min; Globulin 3.3 g/dL (2.2-4.2); Glucose 114 mg/dL (74-106); Protein, Total 6.9 g/dL (6.4-8.2); Sodium Level 140 mmol/L (136-145)
[2020-09-12 12:07] LABS: Lactic Acid 1.3 mmol/L (0.4-1.9)
[2020-09-12 12:58] VITALS: PULSE 59; RESP 16; O2SAT 94
== END 2020-09-12 13:21 | disposition home or self-care (01) ==
PROVIDERS: Emergency Medicine; Emergency Provider Physician Assistant; PCP Internal Medicine
DX: B34.9 Viral infection, unspecified (principal); E87.6 Hypokalemia; R07.89 Other chest pain; J02.9 Acute pharyngitis, unspecified; R05 Cough; I10 Essential (primary) hypertension; E78.5 Hyperlipidemia, unspecified; M31.7 Microscopic polyangiitis; Z79.899 Other long term (current) drug therapy; Z85.3 Personal history of malignant neoplasm of breast
CPT/HCPCS: 71045; 80048; 80053; 83605; 85025; 87040; 87426; 87804; 99284

== ENCOUNTER → 2020-10-30 12:42 | Outpatient (CLI) | payer OTHER, SELFPAY ==
[2020-10-30 15:32] LABS: Erythrocyte Sedimentation Rate 2 mm/hr (0-30)
[2020-10-30 15:43] LABS: CRP 3.53 mg/L (0.0-3.0)
== END ==
PROVIDERS: PCP Internal Medicine; Referring Provider Internal Medicine Pulmonary Disease; Visit Provider Internal Medicine Pulmonary Disease
DX: M31.7 Microscopic polyangiitis (principal); J84.112 Idiopathic pulmonary fibrosis
CPT/HCPCS: 36415; 85652; 86140

== ENCOUNTER → 2021-03-12 17:34 | Outpatient (CLI) | payer MEDICARE, OTHER, SELFPAY | PROVIDERS: PCP Internal Medicine; Referring Provider Internal Medicine; Visit Provider Internal Medicine | DX: N39.0 Urinary tract infection, site not specified (principal) | CPT/HCPCS: 87077; 87086; 87088; 87186 ==

== ENCOUNTER → 2021-03-24 11:06 | Outpatient (CLI) | payer MEDICARE, OTHER, SELFPAY ==
--- NOTE | 2021-03-24 11:09 | ECHOCS_ITS ---
Reason For Study: CROOK Procedure This was a 2D Doppler, Color Flow transthoracic echocardiogram. The study was technically difficult. Contrast injection was performed. Exam performed in department. Left Ventricle Based upon the 2D echocardiographic and contrast enhanced images obtained there appears to be grossly normal left ventricular size, wall motion, and systolic function. The estimated ejection fraction is 55 %. Septal motion consistent with IVCD. No evidence for diastolic dysfunction. Right Ventricle Normal RV size. Normal systolic function. Atria Normal left atrium. Normal right atrium. No doppler evidence for ASD. Mitral Valve There is no mitral annular calcification. Normal mitral valve. Trivial mitral valve insufficiency. Tricuspid Valve Normal tricuspid valve. Trivial tricuspid valve insufficiency. Right ventricular systolic pressure estimated to be 30 mmHg. Aortic Valve Trisinus/trileaflet aortic valve. Mild diffuse aortic valve thickening. Pulmonic Valve The pulmonic valve is not well visualized. Mild (1+) pulmonic valve insufficiency. Great Vessels Normal sized aortic root. Pericardium/Pleural No pericardial effusion. Medication 22 gauge I.V. with prn adaptor inserted into left arm. Diluted definity 6ml given slow IV push to enhance endocardial definition. MMode/2D Measurements & Calculations LVIDd: 5.4 cm IVSd: 0.87 cm Ao root diam: 3.3 cm LVIDs: 3.8 cm LVPWd: 1.0 cm RVDd: 3.6 cm FS: 30.1 % LAV(MOD-bp): 60.4 ml LVAd ap4: 39.0 cm2 SV(MOD-sp4): 77.3 ml LAV(MOD-bp) Indexed: 30.9 ml/m2 LVLd ap4: 8.8 cm LAV(MOD-sp2): 63.3 ml EDV(MOD-sp4): 143.3 ml LAV(MOD-sp4): 54.1 ml EDV(sp4-el): 147.6 ml LVAs ap4: 24.2 cm2 LVLs ap4: 7.2 cm ESV(MOD-sp4): 66.0 ml ESV(sp4-el): 69.0 ml EF(MOD-sp4): 53.9 % EF(sp4-el): 53.2 % SV(sp4-el): 78.5 ml LA A4 area: 19.3 cm2 LA dimension(2D): 3.7 cm RA A4 area: 15.8 cm2 Time Measurements MV dec time: 0.29 sec Doppler Measurements & Calculations MV E max felipe: 56.3 cm/sec Lat Peak E' Felipe: 9.5 cm/sec Med Peak E' Felipe: 5.8 cm/sec MV A max felipe: 84.6 cm/sec E/E' lat: 5.9 E/E' med: 9.8 MV E/A: 0.67 Ao V2 max: 176.3 cm/sec LV V1 max: 82.0 cm/sec PA V2 max: 86.3 cm/sec Ao max P.4 mmHg LV V1 max P.7 mmHg TR max felipe: 261.1 cm/sec TR max P.3 mmHg ECHO/Echo Complete W/ Contrast Interpretation Summary The study was technically difficult. Contrast injection was performed. Based upon the 2D echocardiographic and contrast enhanced images obtained there appears to be grossly normal left ventricular size, wall motion, and systolic function. The estimated ejection fraction is 55 %. Septal motion consistent with IVCD. Trivial mitral valve insufficiency. Trivial tricuspid valve insufficiency. Mild diffuse aortic valve thickening. Mild (1+) pulmonic valve insufficiency. Right ventricular systolic pressure estimated to be 30 mmHg. No evidence for diastolic dysfunction. Ordering Physician: Kori Baum Referring Physician: Kori Baum Performed By: Malou Olsen RDCS
== END ==
PROVIDERS: PCP Internal Medicine; Referring Provider Internal Medicine; Visit Provider Internal Medicine
DX: R06.00 Dyspnea, unspecified (principal)
CPT/HCPCS: 93306; Q9957; A4216; C8929; J3490

== ENCOUNTER → 2021-05-01 06:31 | Outpatient (CLI) | payer MEDICARE, OTHER, SELFPAY ==
--- NOTE | 2021-05-02 14:30 | STRESSREP ---
Stress Test Report Date: 05/01/21 Procedure: Exercise tolerance test/imaging study Indications: Hypertension, abnormal EKG Consent: Per the patient Procedure: The patient exercised on a Franky protocol for 8 minutes achieving a peak heart rate of 120 bpm (77% predicted maximal heart rate) with a peak blood pressure 180/90 mmHg and peak MET capacity of 10 METs. The baseline ECG demonstrated normal sinus rhythm. The peak exercise ECG demonstrated no significant ischemic changes. EKG during recovery revealed no significant ischemic changes [There were no cardiac dysrhythmias pretest, during exercise, or recovery]. The functional capacity was considered normal for age. There was [no complaint of chest discomfort during exercise or recovery]. The examination was discontinued secondary to dyspnea. Impression: 1. Sensitivity of the test is decreased due to inability to reach 85% of maximal age-predicted heart rate 2. Stress test is negative for exercise-induced EKG changes of ischemia 3. The test test is negative for exercise-induced chest pain 4. Functional capacity is normal for age 5. Nuclear images pending Myocardial perfusion imaging study: Technique: The patient was injected with 10.6 mCi of technetium 99m Cardiolite and subsequently rest SPECT Cardiolite nuclear imaging was obtained in the horizontal long, vertical long, and short axis views. The patient exercised on a Franky protocol. Please see above for details. The patient was injected with 32.9 mCi of technetium 99m Cardiolite and subsequently stress SPECT Cardiolite nuclear imaging was obtained in the horizontal long, vertical long, and short axis views. A gated Cardiolite study at peak stress was obtained. Interpretation: Rest and stress SPECT Cardiolite nuclear imaging status post realignment, normalization, and attenuation correction, demonstrates normal myocardial radioisotope uptake. The gated Cardiolite study demonstrates no significant regional wall motion abnormalities. The reported LVEF is 68%. Impression: 1. There is no evidence of significant ischemia or infarction. Inability to reach 85% of maximal age-predicted heart rate does decrease the sensitivity of this test. 2. The gated Cardiolite study reports an LVEF of 68%. This note was generated with [employer] software. It may contain incorrect words, spelling, and punctuation that were not noted in checking the note before signing.
== END ==
PROVIDERS: PCP Internal Medicine; Referring Provider Internal Medicine; Visit Provider Internal Medicine
DX: I95.9 Hypotension, unspecified (principal); R06.00 Dyspnea, unspecified
CPT/HCPCS: 78452; 93017; A9500; A4216

== ENCOUNTER → 2021-06-09 | Outpatient (CLI) | payer MEDICARE, OTHER, SELFPAY ==
[2021-06-09 12:36] LABS: Absolute Neutrophil Count 8.1 X10^3/uL (2.0-7.7); Basophil# 0.03 X10^3/uL; Basophil% 0.3 % (0-1); Eosinophil# 0.03 X10^3/uL; Eosinophils% 0.3 % (0-5); Hematocrit 40.5 % (37-47); Hemoglobin 13.1 g/dL (12.0-15.0); Lymphocyte % 6.4 % (19-41); Mean Corp Hgb Conc 32.3 g/dL (32-36); Mean Corpuscular Hgb 29.1 pg (27.0-32.0); Mean Platelet Vol. 9.6 fl (6.2-12.0); Monocyte# 0.46 X10^3/uL; Monocyte% 4.9 % (0-10); NRBC Flagged by Analyzer 0 % (0-5); Neutrophil # 8.09 X10^3/uL (2.7-7.7); Neutrophil % 86.5 % (47-70); POSITIVE DIFFERENTIAL YES; Platelet Count 301 K/mm3 (150-450); RBC Distribution Width CV 13.2 % (11.6-14.6); RBC Distribution Width SD 43.7 fl (35.1-43.9); White Blood Count 9.4 K/mm3 (4.4-11.0)
[2021-06-09 12:45] LABS: Differential Indicated SCAN CRITERIA MET
[2021-06-09 13:04] LABS: ALB/GLOB Ratio 1.4 RATIO (0.9-2.4); AST(SGOT) 16 U/L (15-37); Alanine Aminotransfer ALT/SGPT 26 U/L (13-56); Albumin, Serum 3.8 g/dL (3.2-5.0); Alkaline Phosphatase 83 U/L (45-117); Anion Gap 7 (5-15); BUN 17 mg/dL (7-18); CRP < 2.90 mg/L (0.0-3.0); Calcium,Total 9.1 mg/dL (8.5-10.1); Chloride 102 mmol/L (98-107); Creatinine, Serum 0.59 mg/dL (0.55-1.02); EST Glomerular Filtration Rate 110 mL/min (>60); Est Glom Filt Rate - Afr Amer 133 mL/min (>60); Globulin 2.8 g/dL (2.2-4.2); Glucose 103 mg/dL (74-106); Potassium 3.4 mmol/L (3.5-5.1); Protein, Total 6.6 g/dL (6.4-8.2); Sodium Level 140 mmol/L (136-145)
[2021-06-09 13:19] LABS: Erythrocyte Sedimentation Rate 6 mm/hr (0-30)
== END | disposition home or self-care (01) ==
LOC: LABSPEC 12:28
PROVIDERS: PCP Internal Medicine; Visit Provider Internal Medicine
DX: M31.7 Microscopic polyangiitis (principal)
CPT/HCPCS: 80053; 85025; 85652; 86140

== ENCOUNTER → 2021-06-11 17:46 | Outpatient (CLI) | payer MEDICARE, OTHER, SELFPAY ==
--- NOTE | 2021-06-11 17:51 | CT_ITS ---
STUDY: CT CHEST WITH CONTRAST REASON FOR EXAM: Female, 66 years old. Abnormal chest x-ray. RADIATION DOSAGE (If Supplied By Facility): CTDIvol = ( 14.75 ) mGy, DLP = ( 365.11 ) mGycm TECHNIQUE: Transaxial imaging was performed following intravenous administration of IV 100mL [id number]-300. Multiplanar coronal and sagittal images were reformatted. Individualized dose optimization techniques were used for this CT. COMPARISON: Chest, 06/05/2021. FINDINGS: The lungs are normal. There is right apical pleural scarring 0.3 cm in greatest thickness. Normal heart and pericardium. Normal mediastinum. Normal hilar regions. Normal enhanced pulmonary arteries. Normal aorta arch and descending thoracic aorta. There are multiple surgical clips right axilla and along the anterior right chest wall breast suggesting prior surgery. Left breast implant. There are degenerative changes of the thoracic spine There is no demonstrated abnormality of the visualized upper abdomen. CT/Chest WITH Contrast IMPRESSION: 1. No evidence for acute cardiopulmonary disease. 2. Surgical changes of the right chest wall and axilla. Degenerative changes of the lumbar spine. Electronically Signed: Joe Renteria DO at 22:40 EDT Tel [phone], Service support ,
== END ==
PROVIDERS: PCP Internal Medicine; Referring Provider Internal Medicine; Visit Provider Internal Medicine
DX: R93.89 Abnormal findings on diagnostic imaging of other specified body structures (principal)
CPT/HCPCS: 71260; Q9967

== ENCOUNTER 2021-06-15 13:07 | Inpatient (IN) | payer MEDICARE, OTHER, SELFPAY ==
[2021-06-15] VITALS (9 sets, daily range): BP systolic 103–149; BP diastolic 58–87; PULSE 62–95; RESP 14–20; TEMP 36.5–38.3; O2SAT 82–97; BMI 25.7; BMI 26.3
--- NOTE | 2021-06-15 13:32 | EDS_ITS ---
HPI <Dr. Rene Turner DO - Last Filed: 06/16/21 09:23> History of Present Illness Chief Complaint: Shortness of Breath Narrative Narrative: Patient is a 66-year-old female with a past medical history of breast cancer, microscopic polyangiitis who presents to the emergency department for shortness of breath, cough, fever. Her symptoms have been present over the past 9 days. She was seen by her PCP and had two Covid test which were both negative. She developed a fever this past Tuesday. She was treated with a course of doxycycline and steroids and has completed this already. She has had sinus congestion. Patient is being treated with Rituxan every 6 months for the microscopic polyangiitis. Her has similar symptoms although he has not had a fever. She has not been vaccinated for Covid. She denies any chest pain. She denies any abdominal pain or nausea/vomiting or diarrhea. She was seen in her PCPs office today and had a temperature 100.4. Apparently she was satting 84% on room air when ambulating. [facility] <Dr. Rene Turner DO - Last Filed: 06/16/21 09:23> [facility] Medical History (Updated 06/16/21 @ 09:[address] Rene Turner DO) Arthritis Breast reconstruction deformity Cancer delivery affecting CPAP (continuous positive airway pressure) dependence FH: mastectomy Fibromyalgia Hearing loss, left Hyperlipemia Hypertension Non-smoker Sleep apnea Home Medications milnacipran 50 mg PO BID 11/22/19 [History Last Taken 06/15/21] pregabalin 150 mg PO BID 11/22/19 [History Last Taken 06/15/21] albuterol sulfate 2 inh INHALATION TID PRN 06/15/21 [History Last Taken 2 Days Ago ~06/13/21] amitriptyline 50 mg PO QHS 06/15/21 [History Last Taken 06/14/21] amlodipine 2.5 mg PO DAILY 06/15/21 [History Last Taken 06/15/21] carvedilol 3.125 mg PO BID 06/15/21 [History Last Taken 06/15/21] duloxetine [Cymbalta] 60 mg PO BID 06/15/21 [History Last Taken 06/15/21] multivitamin 1 tab PO DAILY 06/15/21 [History Last Taken 06/15/21] prednisone 5 mg PO DAILY 06/15/21 [History Last Taken 06/15/21] vitamin E 400 unit PO DAILY 06/15/21 [History Last Taken 06/15/21] zinc sulfate 50 mg PO DAILY 06/15/21 [History Last Taken 06/15/21] Allergy/AdvReac Type Severity Reaction Status Date / Time No Known Allergies Allergy Verified 09/12/20 10:55 Surgical History (Updated 06/15/21 @ 21:21 by Sveta Tuesday) H/O: hysterectomy Social History Smoking Status: Never smoker ROS <Dr. Rene Turner DO - Last Filed: 06/16/21 09:23> ROS ED Constitutional Constitutional ED: Reports chills Eyes Eyes: Denies change in vision ENT ENT ED: Denies ear pain or epistaxis Cardiovascular Cardiovascular: Denies chest pain or palpitations Respiratory/Chest Respiratory/Chest: Reports cough, dyspnea and sputum Gastrointestinal Gastrointestinal: Denies abdominal pain, diarrhea, nausea or vomiting Genitourinary Genitourinary ED: Denies dysuria, hematuria or urinary frequency Musculoskeletal Musculoskeletal: Denies back pain or neck pain Integumentary Denies rash Neurologic Neurologic: Denies dizziness, headache(s) or weakness EXAM <Dr. Rene Turner DO - Last Filed: 06/16/21 09:23> Physical Exam Const Vital Signs: 06/15/21 13:08 06/15/21 13:48 06/15/21 14:03 Temperature 97.7 F L Temperature Source Temporal Pulse Rate 69 64 Respiratory Rate 20 H 16 Respiratory Effort Normal Respiratory Depth Normal Respiratory Pattern Normal Blood Pressure 112/60 117/67 Blood Pressure Mean 77 83 Pulse Ox 94 92 Oxygen Delivery Method Room Air Room Air Room Air Oxygen Flow Rate (L/min) 06/15/21 14:29 06/15/21 16:00 Temperature 98.4 F Temperature Source Temporal Pulse Rate 64 Respiratory Rate 14 Respiratory Effort Respiratory Depth Respiratory Pattern Blood Pressure 103/58 L Blood Pressure Mean 73 Pulse Ox 95 82 Oxygen Delivery Method Nasal Cannula Room Air Oxygen Flow Rate (L/min) 3 Positive well nourished and well developed General Appearance ED: well developed and NAD HEENT Reports normocephalic and head/scalp atraumatic Eyes PERRL and EOMs intact bilaterally Neck supple Chest Wall inspection of chest normal Resp normal respiratory effort and clear to auscultation bilaterally Auscultation: Negative for rales, rhonchi or wheezes Cardio regular rate, regular rhythm and no murmurs GI normal to inspection, nondistended, normoactive bowel sounds and non-tender Palpation: soft; Negative for guarding or rebound tenderness present Back/Spine no CVA tenderness Extremity normal to inspection General Extremety ED: Negative for edema or tenderness General Extremity: Negative for edema Neuro Sensorium / Orientation: alert Motor Exam: strength 5/5 throughout Psych mental status grossly normal Skin no rashes or lesions noted <Dr. Rik Kaufman, DO - Last Filed: 06/15/21 21:34> Physical Exam Const Vital Signs: 06/15/21 13:08 06/15/21 13:48 06/15/21 14:03 Temperature 97.7 F L Temperature Source Temporal Pulse Rate 69 64 Respiratory Rate 20 H 16 Respiratory Effort Normal Respiratory Depth Normal Respiratory Pattern Normal Blood Pressure 112/60 117/67 Blood Pressure Mean 77 83 Pulse Ox 94 92 Oxygen Delivery Method Room Air Room Air Room Air Oxygen Flow Rate (L/min) 06/15/21 14:29 06/15/21 16:00 Temperature 98.4 F Temperature Source Temporal Pulse Rate 64 Respiratory Rate 14 Respiratory Effort Respiratory Depth Respiratory Pattern Blood Pressure 103/58 L Blood Pressure Mean 73 Pulse Ox 95 82 Oxygen Delivery Method Nasal Cannula Room Air Oxygen Flow Rate (L/min) 3 MDM <Dr. Rene Turner, DO - Last Filed: 06/16/21 09:23> [facility] MDM Narrative Medical decision making narrative: Patient presents the ED for shortness of breath, fever and cough. Just found to be hypoxic in her PCPs office so she was referred to the ED. She had a temperature of 100.4 there and did take ibuprofen before coming here. Vital signs within normal limits currently. She is borderline hypoxic at 92% on room air. Will check x-ray, basic lab work and bl ood cultures. Covid PCR being sent. While waiting for the Covid PCR to return x-ray did show bilateral pneumonia. We will start her on antibiotics. The x-ray is concerning for COVID-19 although she did have 2 - rapid test prior to coming in. The hospitalist is requesting a D-dimer as they believe that this is Covid as well. While waiting for the PCR to return she is signed out due to end of shift. If D-dimer is elevated she will require CT angio of the chest. She otherwise has remained stable throughout ED stay. She is requiring minimal supplemental oxygen at this time. This was all reviewed with the patient and she is agreeable with this plan. Lab Data Labs: Laboratory Results - last 24 hr 06/15/21 06/15/21 06/15/21 13:32 13:32 13:43 WBC 9.5 RBC 4.33 Hgb 12.8 Hct 38.2 MCV 88.2 MCH 29.6 MCHC 33.5 RDW Std Deviation 43.8 RDW Coeff of Allyssa 13.4 Plt Count 249 MPV 9.0 Immature Gran % (Auto) 1.700 H Neut % (Auto) 86.1 H Lymph % (Auto) 4.4 L [place] % (Auto) 7.3 Eos % (Auto) 0.3 Baso % (Auto) 0.2 Absolute Neuts (auto) 8.2 H Absolute Lymphs (auto) 0.42 L Nucleated RBC % 0 Differential Comment COMMENT D-Dimer Quant (PE/DVT) Sodium 132 L Potassium 3.7 Chloride 99 Carbon Dioxide 27.0 Anion Gap 6 BUN 22 H Creatinine 0.86 Estim Creat Clear Calc 68.16 Est GFR (MDRD) Af Amer 86 Est GFR (MDRD) Non-Af 71 BUN/Creatinine Ratio 25.7 H Glucose 109 H Lactic Acid 0.9 Calcium 8.2 L Total Bilirubin 0.40 AST 21 ALT 25 Alkaline Phosphatase 72 Troponin I High Sens 11 Total Protein 6.2 L Albumin 3.2 Globulin 3.0 Albumin/Globulin Ratio 1.1 COVID-19 (RY) 06/15/21 06/15/21 14:00 15:29 WBC RBC Hgb Hct MCV MCH MCHC RDW Std Deviation RDW Coeff of Allyssa Plt Count MPV Immature Gran % (Auto) Neut % (Auto) Lymph % (Auto) [place] % (Auto) Eos % (Auto) Baso % (Auto) Absolute Neuts (auto) Absolute Lymphs (auto) Nucleated RBC % Differential Comment D-Dimer Quant (PE/DVT) 0.76 H* Sodium Potassium Chloride Carbon Dioxide Anion Gap BUN Creatinine Estim Creat Clear Calc Est GFR (MDRD) Af Amer Est GFR (MDRD) Non-Af BUN/Creatinine Ratio Glucose Lactic Acid Calcium Total Bilirubin AST ALT Alkaline Phosphatase Troponin I High Sens Total Protein Albumin Globulin Albumin/Globulin Ratio COVID-19 (RY) Positive Radiography Diagnostic Testing: Radiology Impression Chest X-Ray 06/15/21 13:33 IMPRESSION: Bilateral pneumonia. Electronically Signed: Markell Pham MD at 13:56 EDT Tel , Service support , Chest CTA 06/15/21 16:54 IMPRESSION: 1. No evidence of pulmonary embolus. 2. No aortic dissection or aneurysm. 3. Diffuse mild groundglass infiltrates, consistent with but not diagnostic of COVID 19 pneumonia. 4. No other interval change. Electronically Signed: Joe Renteria DO at 18:55 EDT Tel [phone], Service support , EKG Initial EKG: Attestation: I personally reviewed and interpreted this EKG as follows: (Rate of 66 bpm normal sinus rhythm. Normal intervals. Left axis deviation. Prolonged QRS of 126. No significant ST elevations or depressions. Prior EKG for comparison was performed on March [id number] which has a similar appearance.) <Dr. Rik Kaufman, DO - Last Filed: 06/15/21 21:34> [facility] Narrative Medical decision making narrative: Patient signed out to me at 1600 hrs. for f ollow-up on D-dimer and CTA of the chest. Patient is diagnosed with COVID-19. Currently she is medically stable. I did review her lab work and imaging from earlier. D-dimer was elevated at 0.76. Patient had CTA of the chest which showed diffuse groundglass opacities consistent with COVID-19 however there are no pulmonary emboli nor aortic dissection. Patient is medically stable for transfer to the floor at this time. Lab Data Attestation: I reviewed the patient's lab results. Labs: Laboratory Results - last 24 hr 06/15/21 06/15/21 06/15/21 13:32 13:32 13:43 WBC 9.5 RBC 4.33 Hgb 12.8 Hct 38.2 MCV 88.2 MCH 29.6 MCHC 33.5 RDW Std Deviation 43.8 RDW Coeff of Allyssa 13.4 Plt Count 249 MPV 9.0 Immature Gran % (Auto) 1.700 H Neut % (Auto) 86.1 H Lymph % (Auto) 4.4 L [place] % (Auto) 7.3 Eos % (Auto) 0.3 Baso % (Auto) 0.2 Absolute Neuts (auto) 8.2 H Absolute Lymphs (auto) 0.42 L Nucleated RBC % 0 Differential Comment COMMENT D-Dimer Quant (PE/DVT) Sodium 132 L Potassium 3.7 Chloride 99 Carbon Dioxide 27.0 Anion Gap 6 BUN 22 H Creatinine 0.86 Estim Creat Clear Calc 68.16 Est GFR (MDRD) Af Amer 86 Est GFR (MDRD) Non-Af 71 BUN/Creatinine Ratio 25.7 H Glucose 109 H Lactic Acid 0.9 Calcium 8.2 L Total Bilirubin 0.40 AST 21 ALT 25 Alkaline Phosphatase 72 Troponin I High Sens 11 Total Protein 6.2 L Albumin 3.2 Globulin 3.0 Albumin/Globulin Ratio 1.1 COVID-19 (RY) 06/15/21 06/15/21 14:00 15:29 WBC RBC Hgb Hct MCV MCH MCHC RDW Std Deviation RDW Coeff of Allyssa Plt Count MPV Immature Gran % (Auto) Neut % (Auto) Lymph % (Auto) [place] % (Auto) Eos % (Auto) Baso % (Auto) Absolute Neuts (auto) Absolute Lymphs (auto) Nucleated RBC % Differential Comment D-Dimer Quant (PE/DVT) 0.76 H* Sodium Potassium Chloride Carbon Dioxide Anion Gap BUN Creatinine Estim Creat Clear Calc Est GFR (MDRD) Af Amer Est GFR (MDRD) Non-Af BUN/Creatinine Ratio Glucose Lactic Acid Calcium Total Bilirubin AST ALT Alkaline Phosphatase Troponin I High Sens Total Protein Albumin Globulin Albumin/Globulin Ratio COVID-19 (RY) Positive Radiography Diagnostic Testing: Radiology Impression Chest X-Ray 06/15/21 13:33 IMPRESSION: Bilateral pneumonia. Electronically Signed: Markell Pham MD at 13:56 EDT Tel , Service support , Chest CTA 06/15/21 16:54 IMPRESSION: 1. No evidence of pulmonary embolus. 2. No aortic dissection or aneurysm. 3. Diffuse mild groundglass infiltrates, consistent with but not diagnostic of COVID 19 pneumonia. 4. No other interval change. Electronically Signed: Joe Renteria DO at 18:55 EDT Tel [phone], Service support , Discharge Plan Dx/Rx/DC Orders Clinical Impression: Bilateral pneumonia, Hypoxia, COVID-19 Disposition Disposition: Acute Care Hospital [facility] Discharge Date/Time: 06/15/21 20:11
--- NOTE | 2021-06-15 13:33 | RAD_ITS ---
STUDY: X-RAY CHEST REASON FOR EXAM: Female, 66 years old. Cough, fever TECHNIQUE: Single AP portable view of the chest. COMPARISON: 06/05/2021 FINDINGS: Status post right axillary lymph node dissection. Patchy alveolar opacities in both lungs consistent with bilateral pneumonia. Right apical pleural thickening. There is moderate cardiac enlargement. Normal mediastinum and mariel. Normal visualized pulmonary arteries. Normal visualized aortic arch and descending thoracic aorta. Normal visualized thoracic spine. Normal visualized ribs, clavicles, and shoulders. There is no demonstrated abnormality of the visualized soft tissue structures of the upper abdomen. RAD/Chest 1 View (Portable) IMPRESSION: Bilateral pneumonia. Electronically Signed: Markell Pham MD at 13:56 EDT Tel , Service support ,
--- NOTE | 2021-06-15 13:33 | EKG12_ITS ---
Test Reason : Blood Pressure : / mmHG Vent. Rate : 066 BPM Atrial Rate : 066 BPM P-R Int : 174 ms QRS Dur : 126 ms QT Int : 446 ms P-R-T Axes : 034 -57 024 degrees QTc Int : 467 ms Normal sinus rhythm Left axis deviation Left ventricular hypertrophy with QRS widening T wave abnormality, consider anterolateral ischemia Abnormal ECG Confirmed by ANABELLA CHILEL, ANNIE ([id number]), editor greeting card JENNI DELCID ([id number]) on 06/17/2021 9:35:05 AM Referred By: DALE Confirmed By:ANNIE KYLE MD
[2021-06-15 13:42] LABS: Absolute Lymphocyte Count 0.42 X10^3/uL (0.83-4.51); Absolute Neutrophil Count 8.2 X10^3/uL (2.0-7.7); Basophil# 0.02 X10^3/uL; Basophil% 0.2 % (0-1); Eosinophil# 0.03 X10^3/uL; Eosinophils% 0.3 % (0-5); Hematocrit 38.2 % (37-47); Hemoglobin 12.8 g/dL (12.0-15.0); Lymphocyte # 0.42 X10^3/ul (0.83-4.51); Lymphocyte % 4.4 % (19-41); Mean Corp Hgb Conc 33.5 g/dL (32-36); Mean Corpuscular Hgb 29.6 pg (27.0-32.0); Mean Corpuscular Volume 88.2 fL (81-99); Monocyte% 7.3 % (0-10); NRBC Flagged by Analyzer 0 % (0-5); Neutrophil % 86.1 % (47-70); POSITIVE DIFFERENTIAL YES; Platelet Count 249 K/mm3 (150-450); RBC Distribution Width CV 13.4 % (11.6-14.6); RBC Distribution Width SD 43.8 fl (35.1-43.9); Red Blood Count 4.33 M/mm3 (4.2-5.4); White Blood Count 9.5 K/mm3 (4.4-11.0)
[2021-06-15 13:45] LABS: Differential Indicated SCAN CRITERIA MET
[2021-06-15 14:03] LABS: ALB/GLOB Ratio 1.1 RATIO (0.9-2.4); AST(SGOT) 21 U/L (15-37); Alanine Aminotransfer ALT/SGPT 25 U/L (13-56); Albumin, Serum 3.2 g/dL (3.2-5.0); Alkaline Phosphatase 72 U/L (45-117); Anion Gap 6 (5-15); BUN 22 mg/dL (7-18); BUN/Creat Ratio 25.7 RATIO (10-20); Calcium,Total 8.2 mg/dL (8.5-10.1); Chloride 99 mmol/L (98-107); Creatinine, Serum 0.86 mg/dL (0.55-1.02); EST Glomerular Filtration Rate 71 mL/min (>60); Est Glom Filt Rate - Afr Amer 86 mL/min (>60); Estimated Creatinine Clearance 68.16 ml/min; Glucose 109 mg/dL (74-106); Potassium 3.7 mmol/L (3.5-5.1); Protein, Total 6.2 g/dL (6.4-8.2); Sodium Level 132 mmol/L (136-145); Troponin-I HS 11 pg/mL (3.0-54.0)
[2021-06-15 14:19] LABS: Lactic Acid 0.9 mmol/L (0.4-1.9)
[2021-06-15] MEDS: Ceftriaxone 1 GM/50 ML BAG IV (15:24)
[2021-06-15 16:16] LABS: Probe Check PASS; Specimen Processing Control PASS
[2021-06-15 16:16] LABS: D-Dimer Quantitative (DVT/PE) 0.76 FEU/ug/m (0.27-0.49)
--- NOTE | 2021-06-15 16:54 | CT_ITS ---
STUDY: CTA CHEST REASON FOR EXAM: Female, 66 years old. Hypoxia. Sore throat and cough. 2 negative COVID tests. RADIATION DOSAGE (If Supplied By Facility): CTDIvol = ( 13.03 ) mGy, DLP = ( 416.46 ) mGycm TECHNIQUE: The examination was performed with the intravenous administration of Isovue 370 100ml. Post-processing of the angiographic images was performed, with multiplanar reformation and 3D reconstruction. Individualized dose optimization techniques were used for this CT. COMPARISON: Chest, 06/15/2021. CT of the chest, 06/11/2021. FINDINGS: Normal enhancement of the main pulmonary artery and right and left pulmonary arteries. Normal enhancement of the bilateral peripheral pulmonary arteries. There is no demonstrated pulmonary embolism. Normal thoracic aorta and visualized great vessels. There is no demonstrated aortic dissection. Normal heart and pericardium. Normal mediastinum. Normal hilar regions. Normal visualized trachea and bronchi. The lungs are well expanded. Minimal groundglass infiltrates are seen in the left upper lobe and right middle lobe and bilateral lower lobes which were not present on the prior study. There is stable right-sided apical pleural scarring. Again seen is an intact left breast implant. There are surgical changes in the right breast and axilla unchanged from prior study. No osseous changes. Retrocardiac hiatal hernia. CT/CTA Chest W/WO Contrast IMPRESSION: 1. No evidence of pulmonary embolus. 2. No aortic dissection or aneurysm. 3. Diffuse mild groundglass infiltrates, consistent with but not diagnostic of COVID 19 pneumonia. 4. No other interval change. Electronically Signed: Joe Renteria DO at 18:55 EDT Tel [phone], Service support ,
--- NOTE | 2021-06-15 17:23 | PCM.HP.STD ---
HPI - General General Date of Admission: 06/15/21 HPI Narrative ALDEN HERNÁNDEZ, is a 66 F who presented to the emergency department [facility] on 06/15/2021 with a chief complaint of shortness of breath. She reports that she has had symptoms for at least 7 to 9 days. She was seen by her PCP and tested twice in the outpatient setting both with rapid Covid test and was negative. She was placed on doxycycline and steroids and completed this but over the weekend developed fevers which started on Tuesday. She is on Rituxan every 6 months for microscopic polyangiitis. Her has had similar symptoms but he has not been febrile. She has not been vaccinated for COVID-19. She denies any sense of smell changes, diarrhea, nausea or vomiting, but does states she feels somewhat weak and has myalgias which are chronic and seem to be at baseline. She was seen in her PCPs office today and had a fever of 100.4. Her vital signs the emergency department were stable other than hypoxia with a sat of 82% on room air. This improved with oxygen supplementation at 3 L. Her CBC is unremarkable. Her D-dimer was elevated but age corrected is within normal limits and she had a negative CTA on 06/11/2021. She is mildly hyponatremic with a sodium of 131 but her CMP was otherwise fairly unremarkable. Her lactic acid was 0.9. Her LFTs were normal and her high-sensitivity troponin was within normal limits. Her chest x-ray shows patchy bilateral infiltrates and is consistent with COVID-19 pneumonia. Her PCR was positive for Covid in the emergency department. [facility] Medical History Arthritis CPAP (continuous positive airway pressure) dependence Fibromyalgia Hyperlipemia Hypertension Non-smoker Sleep apnea Home Medications milnacipran 50 mg PO BID 11/22/19 [History Last Taken 06/15/21] pregabalin 150 mg PO BID 11/22/19 [History Last Taken 06/15/21] albuterol sulfate 2 inh INHALATION TID PRN 06/15/21 [History Last Taken 2 Days Ago ~06/13/21] amitriptyline 50 mg PO QHS 06/15/21 [History Last Taken 06/14/21] amlodipine 2.5 mg PO DAILY 06/15/21 [History Last Taken 06/15/21] carvedilol 3.125 mg PO BID 06/15/21 [History Last Taken 06/15/21] duloxetine [Cymbalta] 60 mg PO BID 06/15/21 [History Last Taken 06/15/21] multivitamin 1 tab PO DAILY 06/15/21 [History Last Taken 06/15/21] prednisone 5 mg PO DAILY 06/15/21 [History Last Taken 06/15/21] vitamin E 400 unit PO DAILY 06/15/21 [History Last Taken 06/15/21] zinc sulfate 50 mg PO DAILY 06/15/21 [History Last Taken 06/15/21] Allergy/AdvReac Type Severity Reaction Status Date / Time No Known Allergies Allergy Verified 09/12/20 10:55 no significant family history no surgical history Social History Smoking Status: Never smoker ROS Constitutional Constitutional: Reports fatigue, fever(s), malaise and weakness; Denies anorexia, change in weight, chills, night sweats or other Eyes Eyes: Denies blurry vision, change in eye color, change in vision, discharge from eye(s), double vision, erythema, eye pain, loss of vision or other ENT HEENT: Denies abnormal hearing, dysphagia, ear pain, epistaxis, headache(s), hearing loss, nasal congestion, nasal discharge, post nasal drip, sinus pressure, sore throat or other Cardiovascular Cardiovascular: Reports dyspnea on exertion; Denies chest pain, claudication, edema, lightheadedness, orthopnea, palpitations, paroxysmal nocturnal dyspnea, rapid heart rate, syncope or other Respiratory/Chest Respiratory/Chest: Reports cough, shortness of breath at rest and shortness of breath with exertion; Denies dyspnea, excessive phlegm production, hemoptysis, productive cough, wheezing or other Gastrointestinal Gastrointestinal: Denies abdominal pain, coffee ground emesis, constipation, diarrhea, dyspepsia, hematemesis, hematochezia, loose stools, melena, nausea, vomiting or other Genitourinary Genitourinary: Denies burning urination, difficulty urinating, dysuria, hematuria, nocturia, urinary frequency, urinary hesitancy, urinary incontinence, urinary urgency or other Musculoskeletal Musculoskeletal: Reports arthralgias, joint stiffness and myalgias; Denies back pain, joint pain, joint swelling, neck pain or other Neurologic Neurologic: Denies abnormal gait, abnormal speech, confusion, disequilibrium, dizziness, focal weakness, headache(s), numbness, paresthesias, seizure-like activity, seizures, syncope, tingling, tremor(s) or other Psychiatric Psychiatric: Denies anxiety, depression, homicidal ideation, suicidal ideation or other Endocrine Endocrinology: Denies change in body appearance, cold intolerance, excessive sweating, heat intolerance, polydipsia, polyuria or other Hematologic/Lymphatic Hematologic/Lymphatic: Denies anemia, easy bleeding, easy bruising, lymphadenopathy or other Allergic/Immunologic Allergic/Immunologic: Denies rhinitis, hives, eczemia, asthma or other Vital Signs Vital Signs Vital Signs: 06/15/21 13:08 06/15/21 13:48 06/15/21 14:03 Temperature 97.7 F L Temperature Source Temporal Pulse Rate 69 64 Respiratory Rate 20 H 16 Respiratory Effort Normal Respiratory Depth Normal Respiratory Pattern Normal Blood Pressure 112/60 117/67 Blood Pressure Mean 77 83 Pulse Ox 94 92 Oxygen Delivery Method Room Air Room Air Room Air Oxygen Flow Rate (L/min) 06/15/21 14:29 06/15/21 16:00 06/15/21 17:15 Temperature 98.4 F 98.6 F Temperature Source Temporal Temporal Pulse Rate 64 95 Respiratory Rate 14 16 Respiratory Effort Respiratory Depth Respiratory Pattern Blood Pressure 103/58 L 132/87 H Blood Pressure Mean 73 102 Pulse Ox 95 82 96 Oxygen Delivery Method Nasal Cannula Room Air Room Air Oxygen Flow Rate (L/min) 3 Weight Weight: 79.2 kg Body Mass Index (BMI) 25.7 Physical Exam Const alert, oriented x3 and no apparent distress Constitutional Narrative: Upper middle-aged white female lying in bed, appears as if she does not feel well but nontoxic, no acute distress, on oxygen but no dyspnea on conversation or signs of respiratory distress General Appearance: cooperative HEENT normocephalic, head/scalp atraumatic, hearing grossly normal bilaterally and dentition normal HEENT Narrative: Mouth is mildly dry, no thrush, Mallampati 2, dentition is normal Eyes PERRL, EOMs intact bilaterally and conjunctivae normal Neck no lymphadenopathy, supple and no JVD Neck Narrative: Trachea is midline, no thyroid enlargement or nodules noted Resp normal respiratory effort, no retractions and no use of accessory muscles Resp Narrative: Scattered fine crackles with inspiration Auscultation: crackles; Negative for rales, rhonchi or wheezes Cardio regular rate, regular rhythm, S1 normal heart sound, S2 normal heart sound, no murmurs, no rub, no gallops, no clicks and no JVD GI normal to inspection, nondistended, normoactive bowel sounds, soft to palpation, non-tender and non-distended; Negative for hepatosplenomegaly Extremity no clubbing, cyanosis or edema Peripheral Pulses: Yes pulses 2+ throughout Skin no rashes or lesions noted, no wounds, skin turgor normal, no jaundice, no petechiae and no mottling Neuro oriented x3, CN's II-XII intact bilaterally, moves all extremities and no focal motor deficits Sensorium / Orientation: awake and alert Speech: speech normal Motor Exam: strength 5/5 throughout Psych affect normal Results Lab / Micro Data Attestation: I reviewed the patient's lab results. Result Diagrams: 06/15/21 13:32 06/15/21 13:32 Labs: Laboratory Results - last 24 hr 06/15/21 13:32: WBC 9.5, RBC 4.33, Hgb 12.8, Hct 38.2, MCV 88.2, MCH 29.6, MCHC 33.5, RDW Std Deviation 43.8, RDW Coeff of Allyssa 13.4, Plt Count 249, MPV 9.0, Immature Gran % (Auto) 1.700 H, Neut % (Auto) 86.1 H, Lymph % (Auto) 4.4 L, [place] % (Auto) 7.3, Eos % (Auto) 0.3, Baso % (Auto) 0.2, Absolute Neuts (auto) 8.2 H, Absolute Lymphs (auto) 0.42 L, Nucleated RBC % 0, Differential Comment COMMENT 06/15/21 13:32: Sodium 132 L, Potassium 3.7, Chloride 99, Carbon Dioxide 27.0, Anion Gap 6, BUN 22 H, Creatinine 0.86, Estim Creat Clear Calc 68.16, Est GFR (MDRD) Af Amer 86, Est GFR (MDRD) Non-Af 71, BUN/Creatinine Ratio 25.7 H, Glucose 109 H, Calcium 8.2 L, Total Bilirubin 0.40, AST 21, ALT 25, Alkaline Phosphatase 72, Troponin I High Sens 11, Total Protein 6.2 L, Albumin 3.2, Globulin 3.0, Albumin/Globulin Ratio 1.1 06/15/21 13:43: Lactic Acid 0.9 06/15/21 14:00: COVID-19 (RY) Positive 06/15/21 15:29: D-Dimer Quant (PE/DVT) 0.76 H* Radiology Impression Chest X-Ray 06/15/21 13:33 IMPRESSION: Bilateral pneumonia. Electronically Signed: Markell Pham MD at 13:56 EDT Tel , Service support , Assessment & Plan Assessment/Plan (1) Acute respiratory insufficiency: (2) Hypoxia: (3) COVID-19: (4) Hyponatremia: PLAN: Acute hypoxic respiratory insufficiency secondary to COVID-19 -Symptoms since approximately 06/09/2021--> will need to quarantine until 06/29/2021 -Nonvaccinated--> recommend vaccine after patient is out of quarantine -2 - rapid test as an outpatient but PCR positive -Chest x-ray shows multifocal bilateral patchy infiltrates -Was treated in outpatient with doxycycline and prednisone -Start remdesivir day of -Serial lab ordered for monitoring -Start Decadron day -Currently requiring 3 L nasal cannula to keep oxygen saturations greater than 92% -Oxygen saturation on presentation was 82% on room air -D-dimer when corrected for age is within normal limits -Patient did have a negative CTA on 06/11/2021 -Check urine Legionella and strep pneumo antigens -Check sputum culture if patient able to produce 1 -Incentive spirometry -As needed albuterol Mild hyponatremia -Suspect related to acute Covid infection -Repeat BMP in the morning History of microscopic polyangiitis -On Rituxan at baseline -Hold -Patient also takes systemic prednisone 5 mg daily -Hold while she is on Decadron Hypertension -Continue amlodipine History of breast cancer -Currently stable Fibromyalgia -Continue Lyrica -Continue amitriptyline Depression -Continue Cymbalta -Continue milnacipran DVT prophylaxis -Lovenox 30 mg twice daily -SCDs CODE STATUS -Full code -Continue carvedilol Charges/Coding Visit Charges Inpatient E&M: 31873 Init Hosp L3
--- NOTE | 2021-06-15 20:30 | PCS.PANDOC ---
PANDEMIC DOCUMENTATION INITIATED: Date: 06/01/2021 Time: 190
--- NOTE | 2021-06-15 20:30 | NURSING ---
Emergency documentation in effect
[2021-06-15] MEDS: MELATONIN 3 MG TABLET PO (21:32)
[2021-06-15] MEDS: Pregabalin 75 MG Capsule 150 MG PO (21:32)
[2021-06-15] MEDS: 0.9% Saline Lock 10 ML Syringe IV (21:32)
[2021-06-15] MEDS: Enoxaparin 40 MG/0.4 ML Syringe SC (21:32)
[2021-06-15] MEDS: Carvedilol 3.125 MG TABLET PO (21:33)
[2021-06-15] MEDS: DULoxetine Hcl 60 MG Capsule PO (21:33)
[2021-06-15] MEDS: Acetaminophen 325 MG Tablet 650 MG PO (21:33)
[2021-06-15] MEDS: Famotidine 20 MG Tablet PO (21:34)
[2021-06-15] MEDS: dexAMETHasone 4 MG Tablet 6 MG PO (21:34)
[2021-06-16] VITALS (8 sets, daily range): BP systolic 110–133; BP diastolic 70–76; PULSE 56–68; RESP 16–24; TEMP 37.2–37.7; O2SAT 91–97
[2021-06-16] MEDS: 0.9% Saline Lock 10 ML Syringe IV (00:19)
[2021-06-16 07:44] LABS: ALB/GLOB Ratio 0.9 RATIO (0.9-2.4); AST(SGOT) 32 U/L (15-37); Alanine Aminotransfer ALT/SGPT 27 U/L (13-56); Albumin, Serum 2.9 g/dL (3.2-5.0); Alkaline Phosphatase 71 U/L (45-117); Anion Gap 6 (5-15); BUN 18 mg/dL (7-18); BUN/Creat Ratio 28.1 RATIO (10-20); Calcium,Total 8.2 mg/dL (8.5-10.1); Chloride 103 mmol/L (98-107); Creatinine, Serum 0.64 mg/dL (0.55-1.02); EST Glomerular Filtration Rate 99 mL/min (>60); Est Glom Filt Rate - Afr Amer 119 mL/min (>60); Estimated Creatinine Clearance 91.59 ml/min; Globulin 3.3 g/dL (2.2-4.2); Glucose 141 mg/dL (74-106); Magnesium 2.2 mg/dL (1.6-2.6); Phosphorus 4.9 mg/dL (2.5-4.9); Potassium 3.6 mmol/L (3.5-5.1); Protein, Total 6.2 g/dL (6.4-8.2); Sodium Level 136 mmol/L (136-145); Thyroid Stim Hormone (TSH) 0.78 uIU/mL (0.358-3.74)
[2021-06-16] MEDS: Enoxaparin 40 MG/0.4 ML Syringe SC ×2 (10:18→20:28)
[2021-06-16] MEDS: Pregabalin 75 MG Capsule 150 MG PO ×2 (10:18→20:33)
[2021-06-16] MEDS: dexAMETHasone 4 MG Tablet 6 MG PO (10:18)
[2021-06-16] MEDS: Carvedilol 3.125 MG TABLET PO ×2 (10:18→20:34)
[2021-06-16] MEDS: amLODIPine 2.5 MG Tablet PO (10:19)
[2021-06-16] MEDS: DULoxetine Hcl 60 MG Capsule PO ×2 (10:19→20:33)
[2021-06-16] MEDS: Famotidine 20 MG Tablet PO ×2 (10:19→20:34)
[2021-06-16] MEDS: guaiFENesin 10 ML UDC (200MG/10ML) 20 ML PO ×2 (10:19→20:31)
[2021-06-16] MEDS: guaiFENesin 1,200 MG Tablet 1200 MG PO ×2 (10:19→20:37)
[2021-06-16] MEDS: Acetaminophen 325 MG Tablet 650 MG PO ×2 (13:16→20:34)
[2021-06-16 14:42] LABS: Hematocrit 41.9 % (37-47); Hemoglobin 13.3 g/dL (12.0-15.0); Mean Corp Hgb Conc 31.7 g/dL (32-36); Mean Corpuscular Hgb 28.8 pg (27.0-32.0); Mean Corpuscular Volume 90.7 fL (81-99); Mean Platelet Vol. 9.3 fl (6.2-12.0); Platelet Count 255 K/mm3 (150-450); RBC Distribution Width CV 13.5 % (11.6-14.6); RBC Distribution Width SD 45.3 fl (35.1-43.9); Red Blood Count 4.62 M/mm3 (4.2-5.4)
[2021-06-16 14:44] LABS: Scan Indicated on CBC? Y/N NO
--- NOTE | 2021-06-16 14:54 | CASEMGMT ---
TAMRA OCAMPO Assessment: Face to Face with pt for initial transition planning/care coordination assessment. RN DAMARIS introduced self and role at [facility], pt voices understanding and consents to assessment. Pt is A/O x4 and answers all questions appropriately at this time. Pt sitting up on top of BSC (not using) with O2 on in no distress. Care providers, pharmacy, and demographics verified/updated. Admitting Dx: COVID 19 PCP:Bautista Specialists:Paulina, pulbrenden; Ananya, rheumatology [facility] Preferred Pharmacy: [facility] Insurance: [facility] Part B, [employer] Sr Supp Prescription Benefit: yes LNOK: Santos Kirby, Living Arrangements: Pt lives with in a single story house with one step to enter. Pt reports she is I in ADL's and denies concerns at home. Transportation: Pt drives self and denies concerns with transportation. DME/HHC/SNF: Pt has a CPAP at home only, denies hx of HHC or SNF stays. Pt states no concerns with going home at time of dc. She states she has everything she needs. Discussed quarantining from her . She states she can use separate bedroom and bathroom from him as well as wear a mask. Pt states she was tested at [facility]. Provided pt with local in network DME company, pt chose [employer] should she need O2 upon dc. Pt states no further concerns/needs. CM to follow. Advised pt to ask CM if any further question/concerns/needs arise, voices understanding. Pt Goal: Home Plan: Home
--- NOTE | 2021-06-16 15:36 | PCM.PN.HOSP ---
Subjective Subjective Feels about the same as when she came in. Maybe presented with use here. Objective Data Objective Data Vital Signs: Vital Signs Temp Pulse Resp BP Pulse Ox 99.2 F H 68 18 125/70 H 92 06/16/21 08:12 06/16/21 08:12 06/16/21 08:12 06/16/21 08:12 06/16/21 11:45 Oxygen Flow Rate (L/min) 3 Oxygen Delivery Method Nasal Cannula Weight: 178 lb 6.4 oz Body Mass Index (BMI) 26.3 Intake & Output: Intake and Output for Last 24 Hours 06/15/21 06/16/21 06/17/21 03:59 03:59 03:59 Intake Total 964.25 / 964.25 1050 / 1050 Balance 964.25 / 964.25 1050 / 1050 Lab / Micro Data Result Diagrams: 06/16/21 06:26 06/16/21 06:26 Labs: Laboratory Results - last 24 hr 06/15/21 14:00: COVID-19 (RY) Positive 06/15/21 15:29: D-Dimer Quant (PE/DVT) 0.76 H* 06/16/21 06:26: WBC 7.0, RBC 4.62, Hgb 13.3, Hct 41.9, MCV 90.7, MCH 28.8, MCHC 31.7 L D, RDW Std Deviation 45.3 H, RDW Coeff of Allyssa 13.5, Plt Count 255, MPV 9.3 06/16/21 06:26: Sodium 136, Potassium 3.6, Chloride 103, Carbon Dioxide 27.0, Anion Gap 6, BUN 18, Creatinine 0.64, Estim Creat Clear Calc 91.59, Est GFR (MDRD) Af Amer 119, Est GFR (MDRD) Non-Af 99, BUN/Creatinine Ratio 28.1 H, Glucose 141 H, Calcium 8.2 L, Phosphorus 4.9, Magnesium 2.2, Total Bilirubin 0.30, AST 32, ALT 27, Alkaline Phosphatase 71, Total Protein 6.2 L, Albumin 2.9 L, Globulin 3.3, Albumin/Globulin Ratio 0.9, TSH 0.78 Micro: Microbiology 06/16/21 09:43 Urine, Clean Catch Streptococcus pneumoniae Antigen (M - Final 06/16/21 09:43 Urine, Clean Catch Legionella Antigen - Final Radiography Diagnostic Testing: Radiology Impression Chest CTA 06/15/21 16:54 IMPRESSION: 1. No evidence of pulmonary embolus. 2. No aortic dissection or aneurysm. 3. Diffuse mild groundglass infiltrates, consistent with but not diagnostic of COVID 19 pneumonia. 4. No other interval change. Electronically Signed: Joe Renteria DO at 18:55 EDT Tel [phone], Service support , Physical Exam Const alert, oriented x3 and no apparent distress General Appearance: cooperative HEENT normocephalic and moist oral mucous membranes Eyes PERRL, EOMs intact bilaterally and conjunctivae normal Neck supple and no JVD Resp normal respiratory effort, no retractions and no use of accessory muscles Auscultation: crackles; Negative for rales, rhonchi or wheezes Cardio regular rate, regular rhythm, S1 normal heart sound, S2 normal heart sound and no murmurs GI soft to palpation, non-tender and non-distended; Negative for hepatosplenomegaly Extremity no clubbing, cyanosis or edema Skin no rashes or lesions noted Neuro no focal motor deficits and no sensory deficits noted Psych affect normal Appearance: appropriate Assessment & Plan Assessment/Plan (1) Acute respiratory insufficiency: (2) Hypoxia: (3) COVID-19: (4) Hyponatremia: PLAN: 1. Acute hypoxic respiratory insufficiency secondary to COVID-19 pneumonia -Chest x-ray with multifocal bilateral patchy infiltrates -Is nonvaccinated -We will continue with remdesivir and Decadron -Monitor her oxygen requirements, currently up to 5 L. -Encourage incentive spirometry 2. History of microscopic polyangiitis -Hold her Rituxan her baseline prednisone given her Decadron. 3. HTN -Blood pressure stable -Continue with Norvasc 4. Fibromyalgia/depression/anxiety -Stable -Continue with Lyrica, amitriptyline, milnacipran, and Cymbalta DVT: Lovenox Charges/Coding Visit Charges Inpatient E&M: 96012 Subs Hosp L2
[2021-06-16] MEDS: MELATONIN 3 MG TABLET PO (20:33)
[2021-06-17] VITALS (8 sets, daily range): BP systolic 119–148; BP diastolic 69–90; PULSE 50–88; RESP 18–25; TEMP 36.9–37.3; O2SAT 90–95
[2021-06-17 07:27] LABS: Hematocrit 40.8 % (37-47); Hemoglobin 13.3 g/dL (12.0-15.0); Mean Corp Hgb Conc 32.6 g/dL (32-36); Mean Corpuscular Hgb 29.4 pg (27.0-32.0); Mean Corpuscular Volume 90.1 fL (81-99); Mean Platelet Vol. 9.3 fl (6.2-12.0); Platelet Count 254 K/mm3 (150-450); RBC Distribution Width SD 42.9 fl (35.1-43.9); Red Blood Count 4.53 M/mm3 (4.2-5.4); White Blood Count 6.8 K/mm3 (4.4-11.0)
[2021-06-17 07:57] LABS: ALB/GLOB Ratio 0.9 RATIO (0.9-2.4); AST(SGOT) 32 U/L (15-37); Alanine Aminotransfer ALT/SGPT 27 U/L (13-56); Albumin, Serum 2.8 g/dL (3.2-5.0); Alkaline Phosphatase 69 U/L (45-117); Anion Gap 6 (5-15); BUN 27 mg/dL (7-18); Calcium,Total 8.8 mg/dL (8.5-10.1); Chloride 104 mmol/L (98-107); Creatinine, Serum 0.56 mg/dL (0.55-1.02); EST Glomerular Filtration Rate 115 mL/min (>60); Est Glom Filt Rate - Afr Amer 139 mL/min (>60); Estimated Creatinine Clearance 104.67 ml/min; Globulin 3.2 g/dL (2.2-4.2); Glucose 130 mg/dL (74-106); Potassium 3.5 mmol/L (3.5-5.1); Sodium Level 137 mmol/L (136-145)
[2021-06-17] MEDS: dexAMETHasone 4 MG Tablet 6 MG PO (09:32)
[2021-06-17] MEDS: amLODIPine 2.5 MG Tablet PO (09:33)
[2021-06-17] MEDS: guaiFENesin 1,200 MG Tablet 1200 MG PO ×2 (09:33→21:22)
[2021-06-17] MEDS: DULoxetine Hcl 60 MG Capsule PO ×2 (09:33→21:22)
[2021-06-17] MEDS: Carvedilol 3.125 MG TABLET PO ×2 (09:33→21:22)
[2021-06-17] MEDS: Enoxaparin 40 MG/0.4 ML Syringe SC ×2 (09:33→21:23)
[2021-06-17] MEDS: Famotidine 20 MG Tablet PO ×2 (09:33→21:22)
[2021-06-17] MEDS: Pregabalin 75 MG Capsule 150 MG PO ×2 (09:37→21:22)
[2021-06-17] MEDS: guaiFENesin 10 ML UDC (200MG/10ML) 20 ML PO ×2 (09:57→20:20)
--- NOTE | 2021-06-17 15:54 | PN.HOSP_ITS ---
Subjective Subjective Has had a slight increase in her oxygen requirements. She is currently on high flow nasal cannula at 8 L. She did have significant improvement with her oxygen saturations with proning. Objective Data Objective Data Vital Signs: Vital Signs Temp Pulse Resp BP Pulse Ox 98.5 F 69 18 148/90 H 90 06/17/21 14:28 06/17/21 14:28 06/17/21 14:28 06/17/21 14:28 06/17/21 14:28 Oxygen Flow Rate (L/min) 5 Oxygen Delivery Method CPAP Weight: 178 lb 6.4 oz Body Mass Index (BMI) 26.3 Intake & Output: Intake and Output for Last 24 Hours 06/16/21 06/17/21 06/18/21 03:59 03:59 03:59 Intake Total 964.25 / 964.25 1850 / 1850 1100 / 1100 Balance 964.25 / 964.25 1850 / 1850 1100 / 1100 Lab / Micro Data Result Diagrams: 06/17/21 06:40 06/17/21 06:40 Labs: Laboratory Results - last 24 hr 06/17/21 06:40: WBC 6.8, RBC 4.53, Hgb 13.3, Hct 40.8, MCV 90.1, MCH 29.4, MCHC 32.6, RDW Std Deviation 42.9, RDW Coeff of Allyssa 13.0, Plt Count 254, MPV 9.3 06/17/21 06:40: Sodium 137, Potassium 3.5, Chloride 104, Carbon Dioxide 27.0, Anion Gap 6, BUN 27 H, Creatinine 0.56, Estim Creat Clear Calc 104.67, Est GFR (MDRD) Af Amer 139, Est GFR (MDRD) Non-Af 115, BUN/Creatinine Ratio 48.0 H, Glucose 130 H, Calcium 8.8, Total Bilirubin 0.30, AST 32, ALT 27, Alkaline Phosphatase 69, Total Protein 6.0 L, Albumin 2.8 L, Globulin 3.2, Albumin/Globulin Ratio 0.9 Micro: Microbiology 06/16/21 09:43 Sputum, Expectorated/Coughed Gram Stain - Final 06/16/21 09:43 Sputum, Expectorated/Coughed Respiratory Culture - Preliminary Possible Fungus 06/15/21 14:15 Blood Culture (Wb) - Left Hand Blood Culture - Preliminary No growth in 48 hours. 06/15/21 13:43 Blood Culture (Wb) - Anticubital Left Blood Culture - Preliminary No growth in 48 hours. 06/16/21 09:43 Urine, Clean Catch Streptococcus pneumoniae Antigen (M - F inal 06/16/21 09:43 Urine, Clean Catch Legionella Antigen - Final Physical Exam Const alert, oriented x3 and no apparent distress General Appearance: cooperative HEENT normocephalic and moist oral mucous membranes Eyes PERRL, EOMs intact bilaterally and conjunctivae normal Neck supple and no JVD Resp normal respiratory effort, no retractions and no use of accessory muscles Auscultation: Negative for crackles, rales, rhonchi or wheezes Cardio regular rate, regular rhythm, S1 normal heart sound, S2 normal heart sound and no murmurs GI soft to palpation, non-tender and non-distended; Negative for hepatosplenomegaly Extremity no clubbing, cyanosis or edema Skin no rashes or lesions noted Neuro no focal motor deficits and no sensory deficits noted Psych affect normal Appearance: appropriate Assessment & Plan Assessment/Plan (1) Acute respiratory insufficiency: (2) Hypoxia: (3) COVID-19: (4) Hyponatremia: PLAN: 1. Acute hypoxic respiratory failure secondary to COVID-19 pneumonia -Chest x-ray with multifocal bilateral patchy infiltrates -Is nonvaccinated -We will continue with remdesivir and Decadron -Monitor her oxygen requirements, currently up to 8 L high flow. No further air Vo in the hospital will encourage her to transition to our hospital BiPAP -Given the fact that we're now proning her, will consult pulmonology -Encourage incentive spirometry 2. History of microscopic polyangiitis -Receives her Rituxan every 6 months, last dose was given in March or April -Continue with Decadron 3. HTN -Blood pressure stable -Continue with Norvasc 4. Fibromyalgia/depression/anxiety -Stable -Continue with Lyrica, amitriptyline, milnacipran, and Cymbalta DVT: Lovenox Charges/Coding Visit Charges Inpatient E&M: 93462 Subs Hosp L2
[2021-06-17] MEDS: 0.9% Saline Lock 10 ML Syringe IV (21:20)
[2021-06-17] MEDS: MELATONIN 3 MG TABLET PO (21:22)
[2021-06-18] VITALS (17 sets, daily range): BP systolic 115–137; BP diastolic 74–83; PULSE 54–70; RESP 10–22; TEMP 36.2–36.6; O2SAT 91–98
[2021-06-18] MEDS: guaiFENesin 10 ML UDC (200MG/10ML) 20 ML PO ×3 (03:39→12:53)
[2021-06-18 07:02] LABS: Hemoglobin 13.6 g/dL (12.0-15.0); Mean Corp Hgb Conc 33.2 g/dL (32-36); Mean Corpuscular Hgb 29.3 pg (27.0-32.0); Mean Corpuscular Volume 88.4 fL (81-99); Mean Platelet Vol. 9.1 fl (6.2-12.0); Platelet Count 261 K/mm3 (150-450); RBC Distribution Width CV 13.3 % (11.6-14.6); RBC Distribution Width SD 43.2 fl (35.1-43.9); Red Blood Count 4.64 M/mm3 (4.2-5.4); White Blood Count 8.3 K/mm3 (4.4-11.0)
[2021-06-18 07:29] LABS: ALB/GLOB Ratio 0.8 RATIO (0.9-2.4); AST(SGOT) 34 U/L (15-37); Alanine Aminotransfer ALT/SGPT 26 U/L (13-56); Albumin, Serum 2.7 g/dL (3.2-5.0); Alkaline Phosphatase 68 U/L (45-117); Anion Gap 7 (5-15); BUN 26 mg/dL (7-18); BUN/Creat Ratio 54.4 RATIO (10-20); Calcium,Total 8.7 mg/dL (8.5-10.1); Chloride 106 mmol/L (98-107); Creatinine, Serum 0.48 mg/dL (0.55-1.02); EST Glomerular Filtration Rate 139 mL/min (>60); Est Glom Filt Rate - Afr Amer 168 mL/min (>60); Estimated Creatinine Clearance 122.11 ml/min; Globulin 3.3 g/dL (2.2-4.2); Glucose 123 mg/dL (74-106); Potassium 3.3 mmol/L (3.5-5.1); Sodium Level 140 mmol/L (136-145)
[2021-06-18] MEDS: amLODIPine 2.5 MG Tablet PO (08:21)
[2021-06-18] MEDS: DULoxetine Hcl 60 MG Capsule PO ×2 (08:21→21:28)
[2021-06-18] MEDS: Carvedilol 3.125 MG TABLET PO ×2 (08:21→21:28)
[2021-06-18] MEDS: Potassium Chloride Oral Tablet 20 MEQ 40 MEQ PO (08:21)
[2021-06-18] MEDS: guaiFENesin 1,200 MG Tablet 1200 MG PO ×2 (08:22→21:28)
[2021-06-18] MEDS: Pregabalin 75 MG Capsule 150 MG PO ×2 (08:22→21:28)
[2021-06-18] MEDS: Enoxaparin 40 MG/0.4 ML Syringe SC ×2 (08:22→21:32)
[2021-06-18] MEDS: Famotidine 20 MG Tablet PO ×2 (08:22→21:28)
[2021-06-18] MEDS: dexAMETHasone 4 MG Tablet 6 MG PO (08:23)
[2021-06-18] MEDS: 0.9% Saline Lock 10 ML Syringe IV ×2 (10:09→21:27)
--- NOTE | 2021-06-18 14:34 | CON.PCM.CC_ITS ---
Assessment & Plan Assessment/Plan (1) Acute respiratory failure with hypoxia: (2) COVID-19: (3) Microscopic polyangiitis with granulomatosis: PLAN: RECOMMENDATIONS: 1. Continue remdesivir and Decadron 2. Okay to discontinue guaifenesin 3. Okay to continue baseline medications 4. Patient is open to intubation if necessary. If oxygen requirements greater than 80% on BiPAP, consider transfer to the intensive care unit 5. Wean oxygen as tolerated IMPRESSIONS: 1. Acute hypoxic respiratory failure secondary to COVID-19 pneumonia in the setting of microscopic polyangiitis Patient with bilateral patchy infiltrates on presentation and groundglass opacities on CT scan of the chest. This pattern appears to be more consistent with acute viral pneumonia then recurrence of her microscopic polyangiitis. 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 Patient is on high-dose Decadron and this should help. Patient does have wheezing on exam, so will add bronchodilators while awake in addition to the as needed albuterol already scheduled. Patient is a full code, so if she is requiring 80% or more on her BiPAP, transition to the intensive care unit for possible intubation should be considered. 2. Hypertension/fibromyalgia/depression/anxiety/lack of immunization/advanced age Complicates care, management, recovery and prognosis. Okay to continue with baseline medications from my perspective. HPI Consult Data Date of Consult: 06/18/21 HPI Narrative HPI Narrative: ALDEN HERNÁNDEZ is a 66 F, with past medical history listed below, who presented to [facility] on 06/15/2021 secondary to progressive shortness of breath, cough and fever over the previous 9 days. P atient reportedly had had 2 previous Covid test that were negative following the development of a fever. Patient had been placed on doxycycline and steroids with little improvement. Patient also had reported some sinus congestion. Patient does have a history of microscopic polyangiitis and does receive Rituxan every 6 months. Patient had not had a vaccination for COVID-19 secondary to concerns of messing up my autoimmune disease. Patient reportedly had a fever of 100.4 ?F at her PCP and was noted to be 84% on room air when ambulating. In the ER, patient was afebrile, normotensive and tolerating room air. However, on ambulation patient desaturated to 82% on room air. Laboratory work-up showed a relatively unremarkable CBC and CMP. Lactate was 0.9. D-dimer was elevated, but COVID-19 came back positive. A chest x-ray showed bilateral pneumonia and this was followed up with a CTA of the chest showing no PE but diffuse groundglass opacities. Given patient's need for supplemental oxygen on exertion, she was admitted to the floor for further evaluation. Over the course of patient's hospitalization, oxygenation has continued to worsen. Patient is currently requiring BiPAP with 60% oxygen to maintain saturations. Patient had attempted prone positioning yesterday with 12 L/min. Patient does not use supplemental oxygen at baseline. However, given acute worsening, pulmonary was consulted for evaluation. Patient reports that she was diagnosed with microscopic polyangiitis by [facility]. 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 Patient has been relatively controlled with Rituxan therapy per her report. Patient is unaware of previous pulmonary function studies. Patient has not required noninvasive therapy previously. Patient does have a history of breast cancer status post r econstruction. Patient is on low-dose prednisone at baseline along with hydroxychloroquine. Review of systems otherwise negative from a constitutional, HEENT, respiratory, cardiovascular, GI, genitourinary, musculoskeletal, skin, neurologic, psychiatric and hematologic system unless stated above. [facility] Medical History Arthritis Breast reconstruction deformity Cancer delivery affecting CPAP (continuous positive airway pressure) dependence FH: mastectomy Fibromyalgia Hearing loss, left Hyperlipemia Hypertension Non-smoker Sleep apnea Home Medications milnacipran 50 mg PO BID 11/22/19 [History Last Taken 06/15/21] pregabalin 150 mg PO BID 11/22/19 [History Last Taken 06/15/21] albuterol sulfate 2 inh INHALATION TID PRN 06/15/21 [History Last Taken 2 Days Ago ~06/13/21] amitriptyline 50 mg PO QHS 06/15/21 [History Last Taken 06/14/21] amlodipine 2.5 mg PO DAILY 06/15/21 [History Last Taken 06/15/21] carvedilol 3.125 mg PO BID 06/15/21 [History Last Taken 06/15/21] duloxetine [Cymbalta] 60 mg PO BID 06/15/21 [History Last Taken 06/15/21] multivitamin 1 tab PO DAILY 06/15/21 [History Last Taken 06/15/21] prednisone 5 mg PO DAILY 06/15/21 [History Last Taken 06/15/21] vitamin E 400 unit PO DAILY 06/15/21 [History Last Taken 06/15/21] zinc sulfate 50 mg PO DAILY 06/15/21 [History Last Taken 06/15/21] hydroxychloroquine 200 mg PO BID 06/16/21 [History Last Taken Unknown] Allergy/AdvReac Type Severity Reaction Status Date / Time No Known Allergies Allergy Verified 09/12/20 10:55 Surgical History H/O: hysterectomy Social History Smoking Status: Never smoker ROS ROS Narrative See HPI Physical Exam Const alert and oriented x3 General Appearance: cooperative, well developed and on BiPAP HEENT normocephalic, head/scalp atraumatic and moist oral mucous membranes Eyes PERRL and EOMs intact bilaterally Neck full ROM and no lymphadenopathy Chest inspection of chest normal Resp normal respiratory effort and no use of accessory muscles Effort and Inspection: able to speak in complete sentences Auscultation: clear to auscultation bilaterally and wheezes throughout; Negative for rales or rhonchi Percussion: Negative for dullness Cardio regular rate, regular rhythm, S1 normal heart sound, S2 normal heart sound, no murmurs, no rub and no gallops GI normal to inspection, nondistended, normoactive bowel sounds no CVA tenderness Extremity no clubbing, cyanosis or edema Skin no rashes or lesions noted Neuro oriented x3, CN's II-XII intact bilaterally, moves all extremities and no focal motor deficits Psych cooperative and affect normal Lab / Micro Data Result Diagrams: 06/18/21 06:28 06/18/21 06:28 Labs: Laboratory Results - last 24 hr 06/18/21 06:28: WBC 8.3, RBC 4.64, Hgb 13.6, Hct 41.0, MCV 88.4, MCH 29.3, MCHC 33.2, RDW Std Deviation 43.2, RDW Coeff of Allyssa 13.3, Plt Count 261, MPV 9.1 06/18/21 06:28: Sodium 140, Potassium 3.3 L, Chloride 106, Carbon Dioxide 27.0, Anion Gap 7, BUN 26 H, Creatinine 0.48 L, Estim Creat Clear Calc 122.11, Est GFR (MDRD) Af Amer 168, Est GFR (MDRD) Non-Af 139, BUN/Creatinine Ratio 54.4 H, Glucose 123 H, Calcium 8.7, Total Bilirubin 0.30, AST 34, ALT 26, Alkaline Phosphatase 68, Total Protein 6.0 L, Albumin 2.7 L, Globulin 3.3, Albumin/Globulin Ratio 0.8 L Micro: Microbiology 06/16/21 09:43 Sputum, Expectorated/Coughed Gram Stain - Final 06/16/21 09:43 Sputum, Expectorated/Coughed Respiratory Culture - Preliminary Possible Fungus Charges/Coding Visit Charges Inpatient E&M: 32497 Init Hosp L3
--- NOTE | 2021-06-18 17:00 | PN.HOSP_ITS ---
Subjective Subjective No issues overnight, she has had to go up on her oxygen requirement, she has needed high flow oxygen up to 13L has been going on intermittent BiPAP with an FiO2 of 60% throughout the day Objective Data Objective Data Vital Signs: Vital Signs Temp Pulse Resp BP Pulse Ox 97.8 F 54 L 18 137/77 H 94 06/18/21 16:11 06/18/21 16:33 06/18/21 16:11 06/18/21 16:11 06/18/21 16:11 Oxygen Flow Rate (L/min) 13 Oxygen Delivery Method Bi-pap Weight: 178 lb 6.4 oz Body Mass Index (BMI) 26.3 Intake & Output: Intake and Output for Last 24 Hours 06/17/21 06/18/21 06/19/21 03:59 03:59 03:59 Intake Total 1850 / 1850 1660 / 1660 708.5 / 708.5 Output Total 200 / 200 Balance 1850 / 1850 1660 / 1660 508.5 / 508.5 Lab / Micro Data Result Diagrams: 06/18/21 06:28 06/18/21 06:28 Labs: Laboratory Results - last 24 hr 06/18/21 06:28: WBC 8.3, RBC 4.64, Hgb 13.6, Hct 41.0, MCV 88.4, MCH 29.3, MCHC 33.2, RDW Std Deviation 43.2, RDW Coeff of Allyssa 13.3, Plt Count 261, MPV 9.1 06/18/21 06:28: Sodium 140, Potassium 3.3 L, Chloride 106, Carbon Dioxide 27.0, Anion Gap 7, BUN 26 H, Creatinine 0.48 L, Estim Creat Clear Calc 122.11, Est GFR (MDRD) Af Amer 168, Est GFR (MDRD) Non-Af 139, BUN/Creatinine Ratio 54.4 H, Glucose 123 H, Calcium 8.7, Total Bilirubin 0.30, AST 34, ALT 26, Alkaline Phosphatase 68, Total Protein 6.0 L, Albumin 2.7 L, Globulin 3.3, Albumin/Globulin Ratio 0.8 L Micro: Microbiology 06/16/21 09:43 Sputum, Expectorated/Coughed Gram Stain - Final 06/16/21 09:43 Sputum, Expectorated/Coughed Respiratory Culture - Preliminary Possible Fungus 06/15/21 14:15 Blood Culture (Wb) - Left Hand Blood Culture - Preliminary No growth in 48 hours. 06/15/21 13:43 Blood Culture (Wb) - Anticubital Left Blood Culture - Preliminary No growth in 48 hours. 06/16/21 09:43 Urine, Clean Catch Streptococcus pneumoniae Antigen (M - Fi nal 06/16/21 09:43 Urine, Clean Catch Legionella Antigen - Final Physical Exam Const alert, oriented x3 and no apparent distress General Appearance: cooperative HEENT normocephalic and moist oral mucous membranes Eyes PERRL, EOMs intact bilaterally and conjunctivae normal Neck supple and no JVD Resp normal respiratory effort, no retractions and no use of accessory muscles Auscultation: wheezes; Negative for crackles, rales or rhonchi Cardio regular rate, regular rhythm, S1 normal heart sound, S2 normal heart sound and no murmurs GI soft to palpation, non-tender and non-distended; Negative for hepatosplenomegaly Extremity no clubbing, cyanosis or edema Skin no rashes or lesions noted Neuro no focal motor deficits and no sensory deficits noted Psych affect normal Appearance: appropriate Assessment & Plan Assessment/Plan (1) Acute respiratory insufficiency: (2) Hypoxia: (3) COVID-19: (4) Hyponatremia: PLAN: 1. Acute hypoxic respiratory failure secondary to COVID-19 pneumonia -Chest x-ray with multifocal bilateral patchy infiltrates -Is nonvaccinated -We will continue with remdesivir and Decadron -Increase in her oxygen requirements today, already on albuterol, will add DuoNebs -Given the fact that we're now proning her, will consult pulmonology -Encourage incentive spirometry 2. History of microscopic polyangiitis -Receives her Rituxan every 6 months, last dose was given in March or April -Continue with Decadron 3. HTN -Blood pressure stable -Continue with Norvasc 4. Fibromyalgia/depression/anxiety -Stable -Continue with Lyrica, amitriptyline, milnacipran, and Cymbalta DVT: Lovenox Charges/Coding Visit Charges Inpatient E&M: 32761 Subs Hosp L2
[2021-06-18] MEDS: Ipratropium/Albuterol Sulfate 3 ML AMPUL.NEB INHALATION (19:57)
[2021-06-18] MEDS: MELATONIN 3 MG TABLET PO (21:28)
[2021-06-18] MEDS: Amitriptyline 25 MG Tablet 50 MG PO (21:29)
[2021-06-19] VITALS (24 sets, daily range): BP systolic 110–137; BP diastolic 65–84; PULSE 52–85; RESP 10–28; TEMP 36.1–36.6; O2SAT 90–97
[2021-06-19 04:43] LABS: Hematocrit 39.9 % (37-47); Hemoglobin 13.1 g/dL (12.0-15.0); Mean Corp Hgb Conc 32.8 g/dL (32-36); Mean Corpuscular Volume 88.5 fL (81-99); Mean Platelet Vol. 8.8 fl (6.2-12.0); Platelet Count 259 K/mm3 (150-450); RBC Distribution Width CV 13.1 % (11.6-14.6); RBC Distribution Width SD 42.7 fl (35.1-43.9); Red Blood Count 4.51 M/mm3 (4.2-5.4); White Blood Count 7.3 K/mm3 (4.4-11.0)
[2021-06-19 05:47] LABS: ALB/GLOB Ratio 0.7 RATIO (0.9-2.4); AST(SGOT) 29 U/L (15-37); Alanine Aminotransfer ALT/SGPT 26 U/L (13-56); Albumin, Serum 2.5 g/dL (3.2-5.0); Alkaline Phosphatase 68 U/L (45-117); Anion Gap 7 (5-15); BUN 18 mg/dL (7-18); BUN/Creat Ratio 39.2 RATIO (10-20); Calcium,Total 8.5 mg/dL (8.5-10.1); Chloride 104 mmol/L (98-107); Creatinine, Serum 0.46 mg/dL (0.55-1.02); EST Glomerular Filtration Rate 145 mL/min (>60); Est Glom Filt Rate - Afr Amer 176 mL/min (>60); Estimated Creatinine Clearance 127.42 ml/min; Globulin 3.4 g/dL (2.2-4.2); Glucose 129 mg/dL (74-106); Potassium 3.4 mmol/L (3.5-5.1); Protein, Total 5.9 g/dL (6.4-8.2); Sodium Level 139 mmol/L (136-145)
[2021-06-19] MEDS: Ipratropium/Albuterol Sulfate 3 ML AMPUL.NEB INHALATION ×3 (07:47→19:29)
[2021-06-19] MEDS: Pregabalin 75 MG Capsule 150 MG PO ×2 (10:27→21:36)
[2021-06-19] MEDS: Enoxaparin 40 MG/0.4 ML Syringe SC ×2 (10:27→21:36)
[2021-06-19] MEDS: amLODIPine 2.5 MG Tablet PO (10:27)
[2021-06-19] MEDS: DULoxetine Hcl 60 MG Capsule PO ×2 (10:27→21:36)
[2021-06-19] MEDS: Famotidine 20 MG Tablet PO ×2 (10:27→21:37)
[2021-06-19] MEDS: dexAMETHasone 4 MG Tablet 6 MG PO (10:27)
[2021-06-19] MEDS: 0.9% Saline Lock 10 ML Syringe IV (10:28)
[2021-06-19] MEDS: guaiFENesin 1,200 MG Tablet 1200 MG PO ×2 (10:28→21:37)
[2021-06-19] MEDS: Furosemide 40 MG/4 ML Vial IV (10:28)
[2021-06-19] MEDS: Carvedilol 3.125 MG TABLET PO ×2 (10:28→21:36)
--- NOTE | 2021-06-19 10:54 | PN.CC_ITS ---
Assessment & Plan Assessment/Plan (1) Acute respiratory failure with hypoxia: (2) COVID-19: (3) Microscopic polyangiitis with granulomatosis: PLAN: RECOMMENDATIONS: 1. Should complete remdesivir today. Continue Decadron for a total of 10 days 2. Potassium supplementation as necessary 3. Okay to continue baseline medications 4. If oxygen requirements greater than 80% on BiPAP, consider transfer to the intensive care unit 5. Wean oxygen as tolerated 6. Okay to attempt BiPAP breaks and Airvo during the day. Would continue BiPAP with sleep IMPRESSIONS: 1. Acute hypoxic respiratory failure secondary to COVID-19 pneumonia in the setting of microscopic polyangiitis Patient with bilateral patchy infiltrates on presentation and groundglass opacities on CT scan of the chest. This pattern appears to be more consistent with acute viral pneumonia then recurrence of her microscopic polyangiitis. 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 Patient is on high-dose Decadron and this should help. Patient appears to be responding to therapy. Likely okay to attempt breaks on BiPAP with Airvo if necessary. Patient is a full code, so if she is requiring 8 0% or more on her BiPAP, transition to the intensive care unit for possible intubation should be considered. Continue to wean oxygen as tolerated. 2. Hypertension/fibromyalgia/depression/anxiety/lack of immunization/advanced age Complicates care, management, recovery and prognosis. Okay to continue with baseline medications from my perspective. Subjective Subjective Patient did okay overnight. No acute issues were reported. Patient states that she has not been off her BiPAP, but nursing reports that she was on nasal cannula at 12 L to tolerate breakfast. Patient denies any abdominal pain. Patient continues to have a nonproductive cough. Objective Data Objective Data Vital Signs: Vital Signs Temp Pulse Resp BP Pulse Ox 36.1 C L 74 28 H 115/84 H 94 06/19/21 10:20 06/19/21 10:20 06/19/21 10:20 06/19/21 10:20 06/19/21 10:20 Oxygen Flow Rate (L/min) 13 Oxygen Delivery Method Bi-pap Weight: 80.921 kg Body Mass Index (BMI) 26.3 Intake & Output: Intake and Output for Last 24 Hours 06/17/21 06/18/21 06/19/21 23:59 23:59 23:59 Intake Total 2059 1208.5 / 1208.5 Output Total 400 / 400 Balance 2059 808.5 / 808.5 Lab / Micro Data Result Diagrams: 06/19/21 04:30 06/19/21 04:30 Labs: Laboratory Results - last 24 hr 06/19/21 04:30: WBC 7.3, RBC 4.51, Hgb 13.1, Hct 39.9, MCV 88.5, MCH 29.0, MCHC 32.8, RDW Std Deviation 42.7, RDW Coeff of Allyssa 13.1, Plt Count 259, MPV 8.8 06/19/21 04:30: Sodium 139, Potassium 3.4 L, Chloride 104, Carbon Dioxide 28.0, Anion Gap 7, BUN 18, Creatinine 0.46 L, Estim Creat Clear Calc 127.42, Est GFR (MDRD) Af Amer 176, Est GFR (MDRD) Non-Af 145, BUN/Creatinine Ratio 39.2 H, Glucose 129 H, Calcium 8.5, Total Bilirubin 0.40, AST 29, ALT 26, Alkaline Phosphatase 68, Total Protein 5.9 L, Albumin 2.5 L, Globulin 3.4, Albumin/Globulin Ratio 0.7 L Micro: Microbiology 06/16/21 09:43 Sputum, Expectorated/Coughed Gram Stain - Final 06/16/21 09:43 Sputum, Expectorated/Coughed Respiratory Culture - Preliminary Possible Fungus 06/15/21 14:15 Blood Culture (Wb) - Left Hand Blood Culture - Preliminary No growth in 48 hours. 06/15/21 13:43 Blood Culture (Wb) - Anticubital Left Blood Culture - Preliminary No growth in 48 hours. 06/16/21 09:43 Urine, Clean Catch Streptococcus pneumoniae Antigen (M - Final 06/16/21 09:43 Urine, Clean Catch Legionella Antigen - Final Physical Exam Const alert and oriented x3 General Appearance: cooperative, well developed and on BiPAP HEENT normocephalic, head/scalp atraumatic and moist oral mucous membranes Eyes PERRL and EOMs intact bilaterally Neck full ROM and no lymphadenopathy Chest inspection of chest normal Resp normal respiratory effort and no use of accessory muscles Effort and Inspection: able to speak in complete sentences Auscultation: diminished lung sounds; Negative for rales, rhonchi or wheezes Percussion: Negative for dullness Cardio regular rate, regular rhythm, S1 normal heart sound, S2 normal heart sound, no murmurs, no rub and no gallops GI normal to inspection, nondistended, normoactive bowel sounds no CVA tenderness Extremity no clubbing, cyanosis or edema Skin no rashes or lesions noted Neuro oriented x3, CN's II-XII intact bilaterally, moves all extremities and no focal motor deficits Psych cooperative and affect normal Charges/Coding Visit Charges Inpatient E&M: 24422 Subs Hosp L3
[2021-06-19] MEDS: Potassium Chloride Oral Tablet 20 MEQ PO ×2 (13:18→17:45)
--- NOTE | 2021-06-19 16:47 | PCM.PN.HOSP ---
Subjective Subjective Doing well, no issues overnight. She is able to prone herself when she feels like she needs it and is currently on BiPAP. She was little bit tachypneic earlier her nasal cannula. Objective Data Objective Data Vital Signs: Vital Signs Temp Pulse Resp BP Pulse Ox 97.5 F L 64 24 H 120/72 97 06/19/21 14:35 06/19/21 16:29 06/19/21 16:29 06/19/21 14:35 06/19/21 16:29 Oxygen Flow Rate (L/min) 15 Oxygen Delivery Method Nasal Cannula Weight: 178 lb 6.4 oz Body Mass Index (BMI) 26.3 Intake & Output: Intake and Output for Last 24 Hours 06/18/21 06/19/21 06/20/21 03:59 03:59 03:59 Intake Total 1660 / 1660 1208.5 / 1208.5 750 / 750 Output Total 400 / 400 800 / 800 Balance 1660 / 1660 808.5 / 808.5 -50 / -50 Lab / Micro Data Result Diagrams: 06/19/21 04:30 06/19/21 04:30 Labs: Laboratory Results - last 24 hr 06/19/21 04:30: WBC 7.3, RBC 4.51, Hgb 13.1, Hct 39.9, MCV 88.5, MCH 29.0, MCHC 32.8, RDW Std Deviation 42.7, RDW Coeff of Allyssa 13.1, Plt Count 259, MPV 8.8 06/19/21 04:30: Sodium 139, Potassium 3.4 L, Chloride 104, Carbon Dioxide 28.0, Anion Gap 7, BUN 18, Creatinine 0.46 L, Estim Creat Clear Calc 127.42, Est GFR (MDRD) Af Amer 176, Est GFR (MDRD) Non-Af 145, BUN/Creatinine Ratio 39.2 H, Glucose 129 H, Calcium 8.5, Total Bilirubin 0.40, AST 29, ALT 26, Alkaline Phosphatase 68, Total Protein 5.9 L, Albumin 2.5 L, Globulin 3.4, Albumin/Globulin Ratio 0.7 L Micro: Microbiology 06/16/21 09:43 Sputum, Expectorated/Coughed Gram Stain - Final 06/16/21 09:43 Sputum, Expectorated/Coughed Respiratory Culture - Preliminary Possible Fungus 06/15/21 14:15 Blood Culture (Wb) - Left Hand Blood Culture - Preliminary No growth in 48 hours. 06/15/21 13:43 Blood Culture (Wb) - Anticubital Left Blood Culture - Preliminary No growth in 48 hours. 06/16/21 09:43 Urine, Clean Catch Streptococcus pneumoniae Antigen (M - Final 06/16/21 09:43 Urine, Clean Catch Legionella Antigen - Final Physical Exam Const alert, oriented x3 and no apparent distress General Appearance: cooperative HEENT normocephalic and moist oral mucous membranes Eyes PERRL, EOMs intact bilaterally and conjunctivae normal Neck supple and no JVD Resp normal respiratory effort, no retractions and no use of accessory muscles Auscultation: wheezes; Negative for crackles, rales or rhonchi Cardio regular rate, regular rhythm, S1 normal heart sound, S2 normal heart sound and no murmurs GI soft to palpation, non-tender and non-distended; Negative for hepatosplenomegaly Extremity no clubbing, cyanosis or edema Skin no rashes or lesions noted and skin turgor normal Neuro no focal motor deficits and no sensory deficits noted Psych affect normal Appearance: appropriate Assessment & Plan Assessment/Plan (1) Acute respiratory insufficiency: (2) Hypoxia: (3) COVID-19: (4) Hyponatremia: PLAN: 1. Acute hypoxic respiratory failure secondary to COVID-19 pneumonia -Chest x-ray with multifocal bilateral patchy infiltrates -Is nonvaccinated -We will continue with remdesivir and Decadron -Going between-nasal cannula at 12 L and BiPAP -Appreciate pulmonology's assistance, continue to recommend proning -Encourage incentive spirometry 2. History of microscopic polyangiitis -Receives her Rituxan every 6 months, last dose was given in March or April -Continue with Decadron 3. HTN -Blood pressure stable -Continue with Norvasc 4. Fibromyalgia/depression/anxiety -Stable -Continue with Lyrica, amitriptyline, milnacipran, and Cymbalta DVT: Lovenox Charges/Coding Visit Charges Inpatient E&M: 43831 Subs Hosp L2
[2021-06-19] MEDS: Acetaminophen 325 MG Tablet 650 MG PO (21:36)
[2021-06-19] MEDS: Amitriptyline 25 MG Tablet 50 MG PO (21:37)
[2021-06-19] MEDS: MELATONIN 3 MG TABLET PO (21:37)
[2021-06-20] VITALS (36 sets, daily range): BP systolic 103–125; BP diastolic 60–78; PULSE 53–76; RESP 10–32; TEMP 35.9–36.9; O2SAT 88–96
--- NOTE | 2021-06-20 07:07 | PCS.PANDOC ---
PANDEMIC DOCUMENTATION INITIATED: Date: 06/01/2021 Time: 190
[2021-06-20 07:43] LABS: Hematocrit 42.1 % (37-47); Hemoglobin 13.8 g/dL (12.0-15.0); Mean Corp Hgb Conc 32.8 g/dL (32-36); Mean Corpuscular Hgb 29.6 pg (27.0-32.0); Mean Corpuscular Volume 90.1 fL (81-99); Mean Platelet Vol. 8.9 fl (6.2-12.0); Platelet Count 278 K/mm3 (150-450); RBC Distribution Width SD 42.5 fl (35.1-43.9); Red Blood Count 4.67 M/mm3 (4.2-5.4); White Blood Count 7.7 K/mm3 (4.4-11.0)
[2021-06-20] MEDS: Ipratropium/Albuterol Sulfate 3 ML AMPUL.NEB INHALATION ×3 (07:43→19:55)
[2021-06-20] MEDS: Famotidine 20 MG Tablet PO ×2 (08:10→20:26)
[2021-06-20] MEDS: amLODIPine 2.5 MG Tablet PO (08:10)
[2021-06-20] MEDS: Pregabalin 75 MG Capsule 150 MG PO ×2 (08:10→20:25)
[2021-06-20] MEDS: Carvedilol 3.125 MG TABLET PO ×2 (08:10→20:23)
[2021-06-20] MEDS: Hydroxychloroquine 200 MG Tablet PO ×2 (08:11→20:26)
[2021-06-20] MEDS: dexAMETHasone 4 MG Tablet 6 MG PO (08:11)
[2021-06-20] MEDS: DULoxetine Hcl 60 MG Capsule PO ×2 (08:11→20:23)
[2021-06-20] MEDS: guaiFENesin 1,200 MG Tablet 1200 MG PO ×2 (08:11→20:25)
[2021-06-20] MEDS: Enoxaparin 40 MG/0.4 ML Syringe SC ×2 (08:12→20:24)
[2021-06-20 08:30] LABS: ALB/GLOB Ratio 0.6 RATIO (0.9-2.4); AST(SGOT) 22 U/L (15-37); Alanine Aminotransfer ALT/SGPT 25 U/L (13-56); Albumin, Serum 2.4 g/dL (3.2-5.0); Alkaline Phosphatase 71 U/L (45-117); Anion Gap 6 (5-15); BUN 22 mg/dL (7-18); BUN/Creat Ratio 38.1 RATIO (10-20); Calcium,Total 9.2 mg/dL (8.5-10.1); Chloride 105 mmol/L (98-107); Creatinine, Serum 0.58 mg/dL (0.55-1.02); EST Glomerular Filtration Rate 111 mL/min (>60); Est Glom Filt Rate - Afr Amer 135 mL/min (>60); Estimated Creatinine Clearance 101.06 ml/min; Globulin 3.8 g/dL (2.2-4.2); Glucose 128 mg/dL (74-106); Potassium 5.3 mmol/L (3.5-5.1); Protein, Total 6.2 g/dL (6.4-8.2); Sodium Level 138 mmol/L (136-145)
[2021-06-20] MEDS: 0.9% Saline Lock 10 ML Syringe IV ×4 (08:33→20:31)
[2021-06-20] MEDS: Furosemide 40 MG/4 ML Vial IV ×2 (09:45→16:57)
--- NOTE | 2021-06-20 10:00 | PN.CC_ITS ---
Assessment & Plan Assessment/Plan (1) Acute respiratory failure with hypoxia: (2) COVID-19: (3) Microscopic polyangiitis with granulomatosis: PLAN: RECOMMENDATIONS: 1. Completed remdesivir. Continue Decadron for a total of 10 days 2. Potassium supplementation as necessary 3. Okay to continue baseline medications 4. If oxygen requirements greater than 80% on BiPAP, consider transfer to the intensive care unit 5. Wean oxygen as tolerated 6. Okay to use nasal cannula during the day. Would continue BiPAP with sleep IMPRESSIONS: 1. Acute hypoxic respiratory failure secondary to COVID-19 pneumonia in the setting of microscopic polyangiitis Patient with bilateral patchy infiltrates on presentation and groundglass opacities on CT scan of the chest. This pattern appears to be more consistent with acute viral pneumonia then recurrence of her microscopic polyangiitis. 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 Patient is on high-dose Decadron and this should help. Patient appears to be responding to therapy. Patient should continue to use BiPAP at night. Patient can use nasal cannula during the day. We will give nasal saline to help with epistaxis given high nasal cannula requirements. No ivermectin will be prescribed. Patient is aware and reportedly agreeable. 2. Hypertension/fibromyalgia/depression/anxiety/lack of imm unization/advanced age Complicates care, management, recovery and prognosis. Okay to continue with baseline medications from my perspective. Subjective Subjective Patient did okay overnight on BiPAP therapy. Patient did have some desaturation with ambulation this morning, but is currently tolerating nasal cannula oxygen. Patient is not reporting any chest pain. Patient is reporting intermittent production with her cough. Patient was reportedly demanding ivermectin overnight. Extensive conversation o n the idiosyncrasies of ivermectin and the incongruity of in vitro and in vivo studies. Patient is aware that this is not FDA approved for COVID-19 and that levels required for in vitro activity are over 3 times the upper limit of the recommended dose to reach similar concentrations. Patient voiced that she was okay with holding ivermectin therapy. Objective Data Objective Data Vital Signs: Vital Signs Temp Pulse Resp BP Pulse Ox 36.7 C 58 L 20 H 125/75 H 95 06/20/21 09:53 06/20/21 09:53 06/20/21 09:53 06/20/21 09:53 06/20/21 09:53 Oxygen Flow Rate (L/min) 13 Oxygen Delivery Method Nasal Cannula Weight: 80.921 kg Body Mass Index (BMI) 26.3 Intake & Output: Intake and Output for Last 24 Hours 06/18/21 06/19/21 06/20/21 23:59 23:59 23:59 Intake Total 1208.5 / 1208.5 750 / 750 Output Total 400 / 400 800 / 800 Balance 808.5 / 808.5 -50 / -50 Lab / Micro Data Result Diagrams: 06/20/21 07:25 06/20/21 07:25 Labs: Laboratory Results - last 24 hr 06/20/21 07:25: WBC 7.7, RBC 4.67, Hgb 13.8, Hct 42.1, MCV 90.1, MCH 29.6, MCHC 32.8, RDW Std Deviation 42.5, RDW Coeff of Allyssa 13.0, Plt Count 278, MPV 8.9 06/20/21 07:25: Sodium 138, Potassium 5.3 H, Chloride 105, Carbon Dioxide 27.0, Anion Gap 6, BUN 22 H, Creatinine 0.58, Estim Creat Clear Calc 101.06, Est GFR (MDRD) Af Amer 135, Est GFR (MDRD) Non-Af 111, BUN/Creatinine Ratio 38.1 H, Glucose 128 H, Calcium 9.2, Total Bilirubin 0.60, AST 22, ALT 25, Alkaline Phosphatase 71, Total Protein 6.2 L, Albumin 2.4 L, Globulin 3.8, Albumin/Globulin Ratio 0.6 L Micro: Microbiology 06/16/21 09:43 Sputum, Expectorated/Coughed Gram Stain - Final 06/16/21 09:43 Sputum, Expectorated/Coughed Respiratory Culture - Preliminary Possible Fungus 06/15/21 14:15 Blood Culture (Wb) - Left Hand Blood Culture - Preliminary No growth in 48 hours. 06/15/21 13:43 Blood Culture (Wb) - Anticubital Left Blood Culture - Preliminary No growth in 48 hours. 06/16/21 09:43 Urine, Clean Catch Streptococcus pneumoniae Antigen (M - Final 06/16/21 09:43 Urine, Clean Catch Legionella Antigen - Final Physical Exam Const alert and oriented x3 Constitutional Narrative: On nasal cannula in the prone position General Appearance: cooperative and well developed HEENT normocephalic, head/scalp atraumatic and moist oral mucous membranes Eyes PERRL and EOMs intact bilaterally Neck full ROM and no lymphadenopathy Chest inspection of chest normal Resp normal respiratory effort and no use of accessory muscles Effort and Inspection: able to speak in complete sentences Auscultation: diminished lung sounds; Negative for rales, rhonchi or wheezes Percussion: Negative for dullness Cardio regular rate, regular rhythm, S1 normal heart sound, S2 normal heart sound, no murmurs, no rub and no gallops GI normal to inspection, nondistended, normoactive bowel sounds no CVA tenderness Extremity no clubbing, cyanosis or edema Skin no rashes or lesions noted Neuro oriented x3, CN's II-XII intact bilaterally, moves all extremities and no focal motor deficits Psych cooperative and affect normal Charges/Coding Visit Charges Inpatient E&M: 43829 Subs Hosp L3
--- NOTE | 2021-06-20 10:38 | PN.HOSP_ITS ---
Subjective Subjective Doing well, no issues overnight. Her oxygen requirements are remaining stable for the moment. We will continue with high flow nasal cannula with proning and BiPAP Objective Data Objective Data Vital Signs: Vital Signs Temp Pulse Resp BP Pulse Ox 98.0 F 58 L 20 H 125/75 H 91 06/20/21 09:53 06/20/21 09:53 06/20/21 09:53 06/20/21 09:53 06/20/21 10:33 Oxygen Flow Rate (L/min) 13 Oxygen Delivery Method Nasal Cannula Weight: 178 lb 6.4 oz Body Mass Index (BMI) 26.3 Intake & Output: Intake and Output for Last 24 Hours 06/19/21 06/20/21 06/21/21 03:59 03:59 03:59 Intake Total 1208.5 / 1208.5 750 / 750 Output Total 400 / 400 800 / 800 Balance 808.5 / 808.5 -50 / -50 Lab / Micro Data Result Diagrams: 06/20/21 07:25 06/20/21 07:25 Labs: Laboratory Results - last 24 hr 06/20/21 07:25: WBC 7.7, RBC 4.67, Hgb 13.8, Hct 42.1, MCV 90.1, MCH 29.6, MCHC 32.8, RDW Std Deviation 42.5, RDW Coeff of Allyssa 13.0, Plt Count 278, MPV 8.9 06/20/21 07:25: Sodium 138, Potassium 5.3 H, Chloride 105, Carbon Dioxide 27.0, Anion Gap 6, BUN 22 H, Creatinine 0.58, Estim Creat Clear Calc 101.06, Est GFR (MDRD) Af Amer 135, Est GFR (MDRD) Non-Af 111, BUN/Creatinine Ratio 38.1 H, Glucose 128 H, Calcium 9.2, Total Bilirubin 0.60, AST 22, ALT 25, Alkaline Phosphatase 71, Total Protein 6.2 L, Albumin 2.4 L, Globulin 3.8, Albumin/Globulin Ratio 0.6 L Micro: Microbiology 06/16/21 09:43 Sputum, Expectorated/Coughed Gram Stain - Final 06/16/21 09:43 Sputum, Expectorated/Coughed Respiratory Culture - Preliminary Possible Fungus 06/15/21 14:15 Blood Culture (Wb) - Left Hand Blood Culture - Preliminary No growth in 48 hours. 06/15/21 13:43 Blood Culture (Wb) - Anticubital Left Blood Culture - Pr eliminary No growth in 48 hours. 06/16/21 09:43 Urine, Clean Catch Streptococcus pneumoniae Antigen (M - Final 06/16/21 09:43 Urine, Clean Catch Legionella Antigen - Final Physical Exam Const alert, oriented x3 and no apparent distress General Appearance: cooperative HEENT normocephalic and moist oral mucous membranes Eyes PERRL, EOMs intact bilaterally and conjunctivae normal Neck supple and no JVD Resp normal respiratory effort, no retractions and no use of accessory muscles Auscultation: wheezes; Negative for crackles, rales or rhonchi Cardio regular rate, regular rhythm, S1 normal heart sound, S2 normal heart sound and no murmurs GI soft to palpation, non-tender and non-distended; Negative for hepatosplenomegaly Extremity no clubbing, cyanosis or edema Skin no rashes or lesions noted Neuro no focal motor deficits and no sensory deficits noted Psych affect normal Appearance: appropriate Assessment & Plan Assessment/Plan (1) Acute respiratory insufficiency: (2) Hypoxia: (3) COVID-19: (4) Hyponatremia: PLAN: 1. Acute hypoxic respiratory failure secondary to COVID-19 pneumonia -Chest x-ray with multifocal bilateral patchy infiltrates -Is nonvaccinated -We will continue with remdesivir and Decadron -Going between-nasal cannula at 12 L and BiPAP -Appreciate pulmonology's assistance, continue to recommend proning -Encourage incentive spirometry 2. History of microscopic polyangiitis -Receives her Rituxan every 6 months, last dose was given in March or April -Continue with Decadron 3. HTN -Blood pressure stable -Continue with Norvasc 4. Fibromyalgia/depression/anxiety -Stable -Continue with Lyrica, amitriptyline, milnacipran, and Cymbalta DVT: Lovenox Charges/Coding Visit Charges Inpatient E&M: 66048 Subs Hosp L2
[2021-06-20] MEDS: Amitriptyline 25 MG Tablet 50 MG PO (20:23)
[2021-06-20] MEDS: MELATONIN 3 MG TABLET PO (20:26)
[2021-06-21] VITALS (30 sets, daily range): BP systolic 104–115; BP diastolic 60–70; PULSE 54–71; RESP 12–29; TEMP 36.1–36.6; O2SAT 89–98
[2021-06-21 06:42] LABS: Anion Gap 8 (5-15); BUN 29 mg/dL (7-18); BUN/Creat Ratio 47.2 RATIO (10-20); Chloride 100 mmol/L (98-107); Creatinine, Serum 0.61 mg/dL (0.55-1.02); EST Glomerular Filtration Rate 104 mL/min (>60); Est Glom Filt Rate - Afr Amer 126 mL/min (>60); Estimated Creatinine Clearance 96.09 ml/min; Glucose 131 mg/dL (74-106); Potassium 3.5 mmol/L (3.5-5.1); Sodium Level 137 mmol/L (136-145)
[2021-06-21] MEDS: Ipratropium/Albuterol Sulfate 3 ML AMPUL.NEB INHALATION ×3 (07:24→19:28)
--- NOTE | 2021-06-21 09:35 | PCM.PN.INT ---
Assessment & Plan Assessment/Plan (1) Acute respiratory failure with hypoxia: (2) COVID-19: (3) Microscopic polyangiitis with granulomatosis: PLAN: RECOMMENDATIONS: 1. Completed remdesivir. Continue Decadron for a total of 10 days 2. Potassium supplementation as necessary 3. Okay to continue baseline medications 4. If oxygen requirements greater than 80% on BiPAP, consider transfer to the intensive care unit 5. Wean oxygen as tolerated 6. Strict n.p.o. while needs BiPAP 7. Obtain chest x-ray to evaluate for aspiration pneumonia IMPRESSIONS: 1. Acute hypoxic respiratory failure secondary to COVID-19 pneumonia in the setting of microscopic polyangiitis Patient with bilateral patchy infiltrates on presentation and groundglass opacities on CT scan of the chest. This pattern appears to be more consistent with acute viral pneumonia then recurrence of her microscopic polyangiitis. 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 Patient is on high-dose Decadron and this should help. Patient appears to be responding to therapy. Concerned patient may have an element of aspiration pneumonia given p.o. intake while on BiPAP. Chest x-ray will be ordered. Patient may need Unasyn therapy if infiltrate present. 2. Hypertension/fibromyalgia/depression/anxiety/lack of immunization/advanced age Complicates care, management, recovery and prognosis. Okay to continue with baseline medications from my perspective. Subjective Subjective Patient did okay overnight and feels subjectively slightly worse today. Patient has reported significant sinus congestion and has not been able to be taken off the BiPAP. After discussion, patient did admit that she was lifting her BiPAP mask yesterday to eat and then replacing it. This morning, respiratory was unable to place patient on nasal cannula to maintain an acceptable saturation. Objective Data Objective Data Vital Signs: Vital Signs Temp Pulse Resp BP Pulse Ox 36.6 C 62 19 H 114/64 92 06/21/21 09:34 06/21/21 09:34 06/21/21 09:34 06/21/21 09:34 06/21/21 09:34 Oxygen Flow Rate (L/min) 15 Oxygen Delivery Method Bi-pap Weight: 80.921 kg Body Mass Index (BMI) 26.3 Intake & Output: Intake and Output for Last 24 Hours 06/19/21 06/20/21 06/21/21 23:59 23:59 23:59 Intake Total 750 / 750 150 / 150 Output Total 800 / 800 1000 / 1000 Balance -50 / -50 -850 / -850 Lab / Micro Data Result Diagrams: 06/20/21 07:25 06/21/21 05:18 Labs: Laboratory Results - last 24 hr 06/21/21 05:18: Sodium 137, Potassium 3.5, Chloride 100, Carbon Dioxide 29.0, Anion Gap 8, BUN 29 H, Creatinine 0.61, Estim Creat Clear Calc 96.09, Est GFR (MDRD) Af Amer 126, Est GFR (MDRD) Non-Af 104, BUN/Creatinine Ratio 47.2 H, Glucose 131 H, Calcium 9.0 Micro: Microbiology 06/15/21 14:15 Blood Culture (Wb) - Left Hand Blood Culture - Final No growth in 5 days. 06/15/21 13:43 Blood Culture (Wb) - Anticubital Left Blood Culture - Final No growth in 5 days. 06/16/21 09:43 Sputum, Expectorated/Coughed Gram Stain - Final 06/16/21 09:43 Sputum, Expectorated/Coughed Respiratory Culture - Preliminary Possible Fungus 06/16/21 09:43 Urine, Clean Catch Streptococcus pneumoniae Antigen (M - Final 06/16/21 09:43 Urine, Clean Catch Legionella Antigen - Final Physical Exam Const alert and oriented x3 Constitutional Narrative: On nasal cannula in the prone position General Appearance: cooperative and well developed HEENT normocephalic, head/scalp atraumatic and moist oral mucous membranes Eyes PERRL and EOMs intact bilaterally Neck full ROM and no lymphadenopathy Chest inspection of chest normal Resp normal respiratory effort and no use of accessory muscles Effort and Inspection: able to speak in complete sentences Auscultation: rhonchi right lower and diminished lung sounds; Negative for rales or wheezes Percussion: Negative for dullness Cardio regular rate, regular rhythm, S1 normal heart sound, S2 normal heart sound, no murmurs, no rub and no gallops GI normal to inspection, nondistended, normoactive bowel sounds no CVA tenderness Extremity no clubbing, cyanosis or edema Skin no rashes or lesions noted Neuro oriented x3, CN's II-XII intact bilaterally, moves all extremities and no focal motor deficits Psych cooperative and affect normal Charges/Coding Visit Charges Inpatient E&M: 63274 Subs Hosp L3
[2021-06-21] MEDS: DULoxetine Hcl 60 MG Capsule PO ×2 (09:41→20:44)
[2021-06-21] MEDS: dexAMETHasone 4 MG Tablet 6 MG PO (09:41)
[2021-06-21] MEDS: guaiFENesin 1,200 MG Tablet 1200 MG PO ×2 (09:41→20:45)
[2021-06-21] MEDS: Carvedilol 3.125 MG TABLET PO ×2 (09:41→20:44)
[2021-06-21] MEDS: Famotidine 20 MG Tablet PO ×2 (09:41→20:45)
[2021-06-21] MEDS: Enoxaparin 40 MG/0.4 ML Syringe SC ×2 (09:42→20:44)
[2021-06-21] MEDS: Hydroxychloroquine 200 MG Tablet PO ×2 (09:42→20:44)
[2021-06-21] MEDS: amLODIPine 2.5 MG Tablet PO (09:42)
[2021-06-21] MEDS: Pregabalin 75 MG Capsule 150 MG PO ×2 (09:45→20:48)
--- NOTE | 2021-06-21 09:50 | RAD_ITS ---
STUDY: X-RAY CHEST REASON FOR EXAM: Female, 66 years old. hypoxia TECHNIQUE: Single AP portable view of the chest. COMPARISON: 06/15/2021 FINDINGS: Status post right axillary lymph node dissection. Alveolar opacity in the right lung consistent with right-sided pneumonia. There is no demonstrated pleural abnormality. There is moderate cardiac enlargement. Normal mediastinum and mariel. Normal visualized pulmonary arteries. Normal visualized aortic arch and descending thoracic aorta. Normal visualized thoracic spine. Normal visualized ribs, clavicles, and shoulders. There is no demonstrated abnormality of the visualized soft tissue structures of the upper abdomen. RAD/Chest 1 View (Portable) IMPRESSION: Right-sided pneumonia. Electronically Signed: Markell Pham MD at 10:25 EDT Tel , Service support ,
--- NOTE | 2021-06-21 11:23 | PCM.PN.HOSP ---
Subjective Subjective Has been eating and drinking well wearing BiPAP, despite the fact that this was discouraged and repeated to her not to do. She has subsequently needed an increase in her FiO2 on BiPAP consistent with a possible aspiration pneumonia Objective Data Objective Data Vital Signs: Vital Signs Temp Pulse Resp BP Pulse Ox 97.8 F 57 L 29 H 114/64 94 06/21/21 09:34 06/21/21 11:18 06/21/21 10:46 06/21/21 09:34 06/21/21 11:18 Oxygen Flow Rate (L/min) 15 Oxygen Delivery Method Bi-pap Weight: 178 lb 6.4 oz Body Mass Index (BMI) 26.3 Intake & Output: Intake and Output for Last 24 Hours 06/20/21 06/21/21 06/22/21 03:59 03:59 03:59 Intake Total 750 / 750 150 / 150 Output Total 800 / 800 1000 / 1000 Balance -50 / -50 -850 / -850 Lab / Micro Data Result Diagrams: 06/20/21 07:25 06/21/21 05:18 Labs: Laboratory Results - last 24 hr 06/21/21 05:18: Sodium 137, Potassium 3.5, Chloride 100, Carbon Dioxide 29.0, Anion Gap 8, BUN 29 H, Creatinine 0.61, Estim Creat Clear Calc 96.09, Est GFR (MDRD) Af Amer 126, Est GFR (MDRD) Non-Af 104, BUN/Creatinine Ratio 47.2 H, Glucose 131 H, Calcium 9.0 Micro: Microbiology 06/15/21 14:15 Blood Culture (Wb) - Left Hand Blood Culture - Final No growth in 5 days. 06/15/21 13:43 Blood Culture (Wb) - Anticubital Left Blood Culture - Final No growth in 5 days. 06/16/21 09:43 Sputum, Expectorated/Coughed Gram Stain - Final 06/16/21 09:43 Sputum, Expectorated/Coughed Respiratory Culture - Preliminary Possible Fungus 06/16/21 09:43 Urine, Clean Catch Streptococcus pneumoniae Antigen (M - Final 06/16/21 09:43 Urine, Clean Catch Legionella Antigen - Final Radiography Diagnostic Testing: Radiology Impression Chest X-Ray 06/21/21 09:50 IMPRESSION: Right-sided pneumonia. Electronically Signed: Markell Pham MD at 10:25 EDT Tel , Service support , Physical Exam Const alert, oriented x3 and no apparent distress General Appearance: cooperative HEENT normocephalic and moist oral mucous membranes Eyes PERRL, EOMs intact bilaterally and conjunctivae normal Neck no lymphadenopathy, supple and no JVD Neck Narrative: Trachea is midline, no thyroid enlargement or nodules noted Resp normal respiratory effort, no retractions and no use of accessory muscles Auscultation: rhonchi; Negative for crackles, rales or wheezes Cardio regular rate, regular rhythm, S1 normal heart sound, S2 normal heart sound and no murmurs GI soft to palpation, non-tender and non-distended; Negative for hepatosplenomegaly Extremity no clubbing, cyanosis or edema Skin no rashes or lesions noted Neuro no focal motor deficits and no sensory deficits noted Psych affect normal Appearance: appropriate Assessment & Plan Assessment/Plan (1) Acute respiratory insufficiency: (2) Hypoxia: (3) COVID-19: (4) Hyponatremia: PLAN: 1. Acute hypoxic respiratory failure secondary to COVID-19 pneumonia/new aspiration pneumonia -Chest x-ray with multifocal bilateral patchy infiltrates -Is nonvaccinated -We will continue with remdesivir and Decadron -Has needed increased oxygen FiO2 on his BiPAP secondary to what appears to be an aspiration event. She has been eating well wearing her BiPAP chest x-ray this morning shows a right lower lobe infiltrate, will initiate Unasyn -Appreciate pulmonology's assistance, continue to recommend proning -Encourage incentive spirometry 2. History of microscopic polyangiitis -Receives her Rituxan every 6 months, last dose was given in March or April -Continue with Decadron 3. HTN -Blood pressure stable -Continue with Norvasc 4. Fibromyalgia/depression/anxiety -Stable -Continue with Lyrica, amitriptyline, milnacipran, and Cymbalta DVT: Lovenox Charges/Coding Visit Charges Inpatient E&M: 42132 Subs Hosp L2
[2021-06-21] MEDS: 0.9% Saline Lock 10 ML Syringe IV (14:18)
[2021-06-21] MEDS: Amitriptyline 25 MG Tablet 50 MG PO (20:45)
[2021-06-21] MEDS: MELATONIN 3 MG TABLET PO (21:05)
[2021-06-22] VITALS (16 sets, daily range): BP systolic 98–114; BP diastolic 60–67; PULSE 53–70; RESP 14–30; TEMP 36.4–37.4; O2SAT 91–99
--- NOTE | 2021-06-22 05:54 | NURSING ---
0550 Called [place] RT in regards to pt's spo2 dropping to 88% on bipap from previous 92-94% all night. Per RT, not concerned until spo2 gets to 86% and remains at that saturation for a period of time. Will continue to monitor pt. and will notify RT with any changes in oxygen as requested.
[2021-06-22 06:30] LABS: Absolute Lymphocyte Count 0.31 X10^3/uL (0.83-4.51); Absolute Neutrophil Count 5.8 X10^3/uL (2.0-7.7); Basophil# 0.02 X10^3/uL; Basophil% 0.3 % (0-1); Eosinophil# 0.01 X10^3/uL; Eosinophils% 0.2 % (0-5); Hematocrit 40.3 % (37-47); Hemoglobin 13.3 g/dL (12.0-15.0); Lymphocyte # 0.31 X10^3/ul (0.83-4.51); Lymphocyte % 4.7 % (19-41); Mean Corpuscular Hgb 29.1 pg (27.0-32.0); Mean Corpuscular Volume 88.2 fL (81-99); Monocyte# 0.27 X10^3/uL; Monocyte% 4.1 % (0-10); NRBC Flagged by Analyzer 0 % (0-5); Neutrophil # 5.84 X10^3/uL (2.7-7.7); Neutrophil % 88.3 % (47-70); POSITIVE DIFFERENTIAL YES; Platelet Count 299 K/mm3 (150-450); RBC Distribution Width CV 12.9 % (11.6-14.6); RBC Distribution Width SD 41.7 fl (35.1-43.9); Red Blood Count 4.57 M/mm3 (4.2-5.4); White Blood Count 6.6 K/mm3 (4.4-11.0)
[2021-06-22 06:37] LABS: Anion Gap 8 (5-15); BUN 30 mg/dL (7-18); BUN/Creat Ratio 53.1 RATIO (10-20); Calcium,Total 8.7 mg/dL (8.5-10.1); Chloride 103 mmol/L (98-107); Creatinine, Serum 0.56 mg/dL (0.55-1.02); EST Glomerular Filtration Rate 114 mL/min (>60); Est Glom Filt Rate - Afr Amer 138 mL/min (>60); Estimated Creatinine Clearance 104.67 ml/min; Glucose 96 mg/dL (74-106); Potassium 3.5 mmol/L (3.5-5.1); Sodium Level 141 mmol/L (136-145)
[2021-06-22 06:47] LABS: Differential Indicated SCAN CRITERIA MET
[2021-06-22 07:11] LABS: Differential Comment SCANNED
[2021-06-22] MEDS: Ipratropium/Albuterol Sulfate 3 ML AMPUL.NEB INHALATION ×3 (07:21→21:01)
[2021-06-22] MEDS: 0.9% Saline Lock 10 ML Syringe IV ×3 (08:05→22:39)
[2021-06-22] MEDS: Pregabalin 75 MG Capsule 150 MG PO ×2 (08:06→22:37)
[2021-06-22] MEDS: Enoxaparin 40 MG/0.4 ML Syringe SC ×2 (08:06→22:39)
[2021-06-22] MEDS: Famotidine 20 MG Tablet PO ×2 (08:08→22:37)
[2021-06-22] MEDS: dexAMETHasone 4 MG Tablet 6 MG PO (08:08)
[2021-06-22] MEDS: guaiFENesin 1,200 MG Tablet 1200 MG PO ×2 (08:09→22:37)
[2021-06-22] MEDS: DULoxetine Hcl 60 MG Capsule PO ×2 (08:09→22:37)
[2021-06-22] MEDS: Hydroxychloroquine 200 MG Tablet PO ×2 (08:09→22:37)
[2021-06-22] MEDS: Carvedilol 3.125 MG TABLET PO ×2 (08:09→22:37)
[2021-06-22] MEDS: amLODIPine 2.5 MG Tablet PO (08:09)
--- NOTE | 2021-06-22 09:19 | PN.CC_ITS ---
Assessment & Plan Assessment/Plan (1) Acute respiratory failure with hypoxia: (2) COVID-19: (3) Microscopic polyangiitis with granulomatosis: PLAN: RECOMMENDATIONS: 1. Completed remdesivir. Continue Decadron for a total of 10 days 2. Potassium supplementation as necessary 3. Anticipate 7 days of antibiotics for aspiration pneumonia 4. Encourage prone positioning as patient tolerates 5. Wean oxygen as tolerated 6. Strict n.p.o. while needs BiPAP 7. Cannot exclude transition to intensive care IMPRESSIONS: 1. Acute hypoxic respiratory failure secondary to COVID-19 pneumonia in the setting of microscopic polyangiitis Patient with bilateral patchy infiltrates on presentation and groundglass opacities on CT scan of the chest. This pattern appears to be more consistent with acute viral pneumonia then recurrence of her microscopic polyangiitis. 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 Patient is on high-dose Decadron and this should help. Chest x-ray shows worsening right lower lobe infiltrate, likely from aspiration. Patient has been placed on Unasyn. This should be continued for 7 days. Patient is already on steroids secondary to Covid. 2. Hypertension/fibromyalgia/depression/anxiety/lack of immunization/advanced age Complicates care, management, recovery and prognosis. Okay to continue with baseline medications from my perspective. Subjective Subjective Patient did okay overnight. Patient is no longer trying to have p.o. with BiPAP mask in place. Patient subjectively feels unchanged compared to previous. Patient does have occasional cough, but no production is reported. Objective Data Objective Data Vital Signs: Vital Signs Temp Pulse Resp BP Pulse Ox 36.8 C 64 18 109/60 91 06/22/21 08:00 06/22/21 08:14 06/22/21 08:00 06/22/21 08:00 06/22/21 08:14 Oxygen Flow Rate (L/min) 12 Oxygen Delivery Method Bi-pap Weight: 80.921 kg Body Mass Index (BMI) 26.3 Intake & Output: Intake and Output for Last 24 Hours 06/20/21 06/21/21 06/22/21 23:59 23:59 23:59 Intake Total 150 / 150 497.00 / 497.00 136.5 / 136.5 Output Total 1000 / 1000 Balance -850 / -850 497.00 / 497.00 136.5 / 136.5 Lab / Micro Data Result Diagrams: 06/22/21 06:03 06/22/21 06:03 Labs: Laboratory Results - last 24 hr 06/22/21 06:03: Sodium 141, Potassium 3.5, Chloride 103, Carbon Dioxide 30.0, Anion Gap 8, BUN 30 H, Creatinine 0.56, Estim Creat Clear Calc 104.67, Est GFR (MDRD) Af Amer 138, Est GFR (MDRD) Non-Af 114, BUN/Creatinine Ratio 53.1 H, Glucose 96, Calcium 8.7 06/22/21 06:03: WBC 6.6, RBC 4.57, Hgb 13.3, Hct 40.3, MCV 88.2, MCH 29.1, MCHC 33.0, RDW Std Deviation 41.7, RDW Coeff of Allyssa 12.9, Plt Count 299, MPV 9.0, Imm ature Gran % (Auto) 2.400 H, Neut % (Auto) 88.3 H, Lymph % (Auto) 4.7 L, [place] % (Auto) 4.1, Eos % (Auto) 0.2, Baso % (Auto) 0.3, Absolute Neuts (auto) 5.8, Absolute Lymphs (auto) 0.31 L, Nucleated RBC % 0, Differential Comment SCANNED Micro: Microbiology 06/15/21 14:15 Blood Culture (Wb) - Left Hand Blood Culture - Final No growth in 5 days. 06/15/21 13:43 Blood Culture (Wb) - Anticubital Left Blood Culture - Final No growth in 5 days. 06/16/21 09:43 Sputum, Expectorated/Coughed Gram Stain - Final 06/16/21 09:43 Sputum, Expectorated/Coughed Respiratory Culture - Preliminary Possible Fungus 06/16/21 09:43 Urine, Clean Catch Streptococcus pneumoniae Antigen (M - Final 06/16/21 09:43 Urine, Clean Catch Legionella Antigen - Final Radiography Diagnostic Testing: Radiology Impression Chest X-Ray 06/21/21 09:50 IMPRESSION: Right-sided pneumonia. Electronically Signed: Markell Pham MD at 10:25 EDT Tel , Service support , Physical Exam Const alert and oriented x3 Constitutional Narrative: On BiPAP in the prone position General Appearance: cooperative and well developed HEENT normocephalic, head/scalp atraumatic and moist oral mucous membranes Eyes PERRL and EOMs intact bilaterally Neck full ROM and no lymphadenopathy Chest inspection of chest normal Resp normal respiratory effort and no use of accessory muscles Effort and Inspection: able to speak in complete sentences Auscultation: rhonchi right lower and diminished lung sounds; Negative for rales or wheezes Percussion: Negative for dullness Cardio regular rate, regular rhythm, S1 normal heart sound, S2 normal heart sound, no murmurs, no rub and no gallops GI normal to inspection, nondistended, normoactive bowel sounds no CVA tenderness Extremity no clubbing, cyanosis or edema Skin no rashes or lesions noted Neuro oriented x3, CN's II-XII intact bilaterally, moves all extremities and no focal motor deficits Psych cooperative and affect normal Charges/Coding Visit Charges Inpatient E&M: 91691 Subs Hosp L3
--- NOTE | 2021-06-22 11:55 | PN.HOSP_ITS ---
Subjective Subjective Patient seen and examined. She was on BIPAP at time of review. She complained of still feeling weak and lethargic. Review of systems is otherwise negative. SHe has otherwise remained hemodynamically stable. Objective Data Objective Data Vital Signs: Vital Signs Temp Pulse Resp BP Pulse Ox 98.3 F 60 18 109/60 91 06/22/21 08:00 06/22/21 11:23 06/22/21 08:00 06/22/21 08:00 06/22/21 08:14 Oxygen Flow Rate (L/min) 12 Oxygen Delivery Method Bi-pap Weight: 178 lb 6.4 oz Body Mass Index (BMI) 26.3 Intake & Output: Intake and Output for Last 24 Hours 06/20/21 06/21/21 06/22/21 23:59 23:59 23:59 Intake Total 150 / 150 497.00 / 497.00 136.5 / 136.5 Output Total 1000 / 1000 Balance -850 / -850 497.00 / 497.00 136.5 / 136.5 Lab / Micro Data Result Diagrams: 06/22/21 06:03 06/22/21 06:03 Labs: Laboratory Results - last 24 hr 06/22/21 06:03: Sodium 141, Potassium 3.5, Chloride 103, Carbon Dioxide 30.0, Anion Gap 8, BUN 30 H, Creatinine 0.56, Estim Creat Clear Calc 104.67, Est GFR (MDRD) Af Amer 138, Est GFR (MDRD) Non-Af 114, BUN/Creatinine Ratio 53.1 H, Glucose 96, Calcium 8.7 06/22/21 06:03: WBC 6.6, RBC 4.57, Hgb 13.3, Hct 40.3, MCV 88.2, MCH 29.1, MCHC 33.0, RDW Std Deviation 41.7, RDW Coeff of Allyssa 12.9, Plt Count 299, MPV 9.0, Immature Gran % (Auto) 2.400 H, Neut % (Auto) 88.3 H, Lymph % (Auto) 4.7 L, [place] % (Auto) 4.1, Eos % (Auto) 0.2, Baso % (Auto) 0.3, Absolute Neuts (auto) 5.8, Absolute Lymphs (auto) 0.31 L, Nucleated RBC % 0, Differential Comment SCANNED Micro: Microbiology 06/15/21 14:15 Blood Culture (Wb) - Left Hand Blood Culture - Final No growth in 5 days. 06/15/21 13:43 Blood Culture (Wb) - Anticubital Left Blood Culture - Final No growth in 5 days. 06/16/21 09:43 Sputum, Expectorated/Coughed Gram Stain - Final 06/16/21 09:43 Sputum, Expectorated/Coughed Respiratory Culture - Preliminary Possible Fungus 06/16/21 09:43 Urine, Clean Catch Streptococcus pneumoniae Antigen (M - Final 06/16/21 09:43 Urine, Clean Catch Legionella Antigen - Final Physical Exam Const alert, oriented x3 and no apparent distress Exam Limitations: no limitations Nutritional Appearance: overweight HEENT head/scalp atraumatic and moist oral mucous membranes Head and Scalp: normocephalic Eyes PERRL, EOMs intact bilaterally and conjunctivae normal Neck no lymphadenopathy, supple and no JVD Resp Resp Narrative: diminished breath sounds bibasally, no wheezes or crackles. On BIPAP. Cardio regular rate, regular rhythm, S1 normal heart sound, S2 normal heart sound and no murmurs GI normal to inspection, nondistended, normoactive bowel sounds, soft to palpation, non-tender and non-distended Extremity normal to inspection, full ROM and no clubbing, cyanosis or edema Peripheral Pulses: Yes pulses 2+ throughout Skin no rashes or lesions noted Neuro oriented x3, CN's II-XII intact bilaterally and moves all extremities Sensorium / Orientation: awake and alert Psych affect normal Assessment & Plan Assessment/Plan (1) Acute respiratory failure with hypoxia: (2) COVID-19: PLAN: #Acute hypoxic respiratory failure due to COVID 19 infection. * patient remains on BIPAP. * critical care on board * titrate oxygen to maintain sats >90% * has completed a course of remdesivir; on decadron * breathing treatment with bronchodilators. * #COVID 19 pneumonia: as above. On IV unasyn also due to concerns about aspiration pneumonia #Aspiration pneumonia * on IV unasyn due to concerns about aspiration pneumonia; to complete a 7 day course of antibiotics * #History of microscopic polyangitis with granulomatosis * on chronic prednisone and hydroxychloroquine * #Hypertension;on amlodipine and carvedilol #hyperlipidemia: on statin #Fibromyalgia: on pregabalin and duloxetine. DVT prophylaxis: lovenox 40mg bid # Charges/Coding Visit Charges Inpatient E&M: 30655 Subs Hosp L3
[2021-06-22] MEDS: MILNACIPRAN HCL 50 MG TABLET PO ×2 (17:20→22:38)
[2021-06-22] MEDS: MELATONIN 3 MG TABLET PO (22:36)
[2021-06-22] MEDS: Amitriptyline 25 MG Tablet 50 MG PO (22:37)
[2021-06-23] VITALS (31 sets, daily range): BP systolic 93–119; BP diastolic 54–80; PULSE 54–93; RESP 14–32; TEMP 36.2–36.6; O2SAT 88–96
[2021-06-23] MEDS: 0.9% Saline Lock 10 ML Syringe IV ×2 (06:16→13:36)
[2021-06-23 07:29] LABS: Absolute Neutrophil Count 4.5 X10^3/uL (2.0-7.7); Basophil# 0.02 X10^3/uL; Basophil% 0.4 % (0-1); Hematocrit 40.5 % (37-47); Hemoglobin 13.4 g/dL (12.0-15.0); Lymphocyte % 5.7 % (19-41); Mean Corp Hgb Conc 33.1 g/dL (32-36); Mean Corpuscular Hgb 29.5 pg (27.0-32.0); Mean Corpuscular Volume 89.2 fL (81-99); Mean Platelet Vol. 9.1 fl (6.2-12.0); Monocyte% 5.7 % (0-10); NRBC Flagged by Analyzer 0 % (0-5); Neutrophil # 4.52 X10^3/uL (2.7-7.7); Neutrophil % 85.2 % (47-70); POSITIVE DIFFERENTIAL YES; Platelet Count 298 K/mm3 (150-450); RBC Distribution Width CV 13.1 % (11.6-14.6); RBC Distribution Width SD 42.6 fl (35.1-43.9); Red Blood Count 4.54 M/mm3 (4.2-5.4); White Blood Count 5.3 K/mm3 (4.4-11.0)
[2021-06-23 07:31] LABS: Differential Indicated SCAN CRITERIA MET
[2021-06-23 08:03] LABS: Anion Gap 7 (5-15); BUN 29 mg/dL (7-18); BUN/Creat Ratio 61.7 RATIO (10-20); Calcium,Total 8.9 mg/dL (8.5-10.1); Chloride 106 mmol/L (98-107); Creatinine, Serum 0.47 mg/dL (0.55-1.02); EST Glomerular Filtration Rate 141 mL/min (>60); Est Glom Filt Rate - Afr Amer 171 mL/min (>60); Estimated Creatinine Clearance 124.71 ml/min; Glucose 84 mg/dL (74-106); Potassium 3.7 mmol/L (3.5-5.1); Sodium Level 142 mmol/L (136-145)
[2021-06-23] MEDS: Enoxaparin 40 MG/0.4 ML Syringe SC ×2 (10:05→21:54)
[2021-06-23] MEDS: dexAMETHasone 4 MG Tablet 6 MG PO (10:05)
[2021-06-23] MEDS: guaiFENesin 1,200 MG Tablet 1200 MG PO ×2 (10:06→21:54)
[2021-06-23] MEDS: Famotidine 20 MG Tablet PO ×2 (10:06→21:53)
[2021-06-23] MEDS: Carvedilol 3.125 MG TABLET PO ×2 (10:06→21:53)
[2021-06-23] MEDS: Pregabalin 75 MG Capsule 150 MG PO ×2 (10:06→21:53)
[2021-06-23] MEDS: amLODIPine 2.5 MG Tablet PO (10:06)
[2021-06-23] MEDS: Hydroxychloroquine 200 MG Tablet PO ×2 (10:06→21:53)
[2021-06-23] MEDS: DULoxetine Hcl 60 MG Capsule PO ×2 (10:07→21:53)
[2021-06-23] MEDS: MILNACIPRAN HCL 50 MG TABLET PO ×2 (10:07→21:52)
--- NOTE | 2021-06-23 11:13 | PN.CC_ITS ---
Assessment & Plan Assessment/Plan (1) Acute respiratory failure with hypoxia: (2) COVID-19: PLAN: RECOMMENDATIONS: 1. Given the patient's high FiO2 requirement and need for continuous nonin vasive positive pressure ventilatory support, recommend transfer to ICU. 2. Continue Decadron to complete 10-day treatment course. 3. Continue antimicrobials to complete 7 days of treatment. 4. Wean FiO2 to maintain oxygen saturations at or above 90%. 5. Continue Lovenox twice daily. 6. Continue bronchodilator therapy. 7. Encourage awake prone positioning. 8. Attempt gentle diuresis as tolerated by hemodynamics and renal function. 9. The patient should be made n.p.o. while on continuous noninvasive positive pressure ventilatory support. IMPRESSIONS: 1. Acute hypoxemic respiratory failure secondary to COVID-19 pneumonia The patient has completed a treatment course of remdesivir and will remain on Decadron to complete a 10-day course. Given that her presenting chest imaging demonstrated a right lower lobe infiltrate, antimicrobials will be continued to complete a 7-day treatment course. We will attempt to diurese the patient today as tolerated by hemodynamics and renal function. Encourage awake prone positioning. Continue Lovenox twice daily, along with bronchodilator therapy. Continue AVAPS as tolerated and wean FiO2 to maintain saturations at or above 90%. Obtain repeat chest x-ray, if the patient were to develop further clinical decline. 2. History of MPA The patient at her baseline is on prednisone and hydroxychloroquine. 3. Hypertension/fibromyalgia/depression/anxiety Complicates care, management, recovery and prognosis. Continue home medications as indicated. TIME: 35 minutes of critical care time, independent of procedures, was spent addressing the patient's acute hypoxemic respiratory failure secondary to COVID- 19 pneumonia, review of all data, and collaboration with care team. ([id number]) Subjective Subjective The patient was seen and examined at the bedside this morning. Events from the last 24 hours have been reviewed. The patient is currently afebrile, hemodynamically stable and maintaining appropriate oxygen saturations on BiPAP with an FiO2 requirement of 90%. The patient is currently documented to be overall net +4.1 L for the hospital admission. She remains on Decadron and twice daily Lovenox. The patient has already completed a treatment course of remdesivir. Objective Data Objective Data The patient's most recent lab work, culture data and imaging studies have all been personally reviewed. Strep and urine Legionella antigens were negative. Vital Signs: Vital Signs Temp Pulse Resp BP Pulse Ox 97.8 F 64 20 H 109/74 94 06/23/21 10:02 06/23/21 10:47 06/23/21 10:02 06/23/21 10:02 06/23/21 10:02 Oxygen Flow Rate (L/min) 12 Oxygen Delivery Method Bi-pap Weight: 80.9 kg Body Mass Index (BMI) 26.3 Intake & Output: Intake and Output for Last 24 Hours 06/21/21 06/22/21 06/23/21 23:59 23:59 23:59 Intake Total 497.00 / 497.00 487.5 / 487.5 162 / 162 Output Total 450 / 450 900 / 900 Balance 497.00 / 497.00 37.5 / 37.5 -738 / -738 Lab / Micro Data Attestation: I reviewed the patient's lab results. Result Diagrams: 06/24/21 04:20 06/24/21 04:20 Labs: Laboratory Results - last 24 hr 06/23/21 06:17: WBC 5.3, RBC 4.54, Hgb 13.4, Hct 40.5, MCV 89.2, MCH 29.5, MCHC 33.1, RDW Std Deviation 42.6, RDW Coeff of Allyssa 13.1, Plt Count 298, MPV 9.1, Immature Gran % (Auto) 3.000 H, Neut % (Auto) 85.2 H, Lymph % (Auto) 5.7 L, [place] % (Auto) 5.7, Eos % (Auto) 0.0, Baso % (Auto) 0.4, Absolute Neuts (auto) 4.5, Absolute Lymphs (auto) 0.30 L, Nucleated RBC % 0 06/23/21 06:17: Sodium 142, Potassium 3.7, Chloride 106, Carbon Dioxide 29.0, Anion Gap 7, BUN 29 H, Creatinine 0.47 L, Estim Creat Clear Calc 124.71, Est GFR (MDRD) Af Amer 171, Est GFR (MDRD) Non-Af 141, BUN/Creatinine Ratio 61.7 H, Glucose 84, Calcium 8.9 Micro: Microbiology 06/15/21 14:15 Blood Culture (Wb) - Left Hand Blood Culture - Final No growth in 5 days. 06/15/21 13:43 Blood Culture (Wb) - Anticubital Left Blood Culture - Final No growth in 5 days. 06/16/21 09:43 Sputum, Expectorated/Coughed Gram Stain - Final 06/16/21 09:43 Sputum, Expectorated/Coughed Respiratory Culture - Preliminary Possible Fungus 06/16/21 09:43 Urine, Clean Catch Streptococcus pneumoniae Antigen (M - Final 06/16/21 09:43 Urine, Clean Catch Legionella Antigen - Final Physical Exam Const alert General Appearance: cooperative, comfortable and on BiPAP HEENT normocephalic and head/scalp atraumatic Eyes PERRL, EOMs intact bilaterally and conjunctivae normal Neck supple General: trachea midline Chest inspection of chest normal Resp Effort and Inspection: tachypneic Auscultation: diminished lung sounds; Negative for rales, rhonchi or wheezes Cardio regular rate and regular rhythm GI normal to inspection, nondistended, normoactive bowel sounds Extremity no clubbing, cyanosis or edema Skin no rashes or lesions noted Neuro no focal motor deficits Psych Mood & Affect: anxious Charges/Coding Procedures Hospitalists Procedures: 93150 Critial Care 1st Hr
--- NOTE | 2021-06-23 12:05 | NURSING ---
attempted to call report to icu, nurse is unavailable at the moment and the room is not cleaned yet. icu nurse will call back for report
--- NOTE | 2021-06-23 12:10 | NURSING ---
ICU STAFF CALLED BACK FOR REPORT
--- NOTE | 2021-06-23 13:05 | PN.HOSP_ITS ---
Subjective Subjective Patient seen and examined. She was on BIPAP at time of review. She still felt short of breath and was coughing. SHe had no other complaints and review of systems was otherwise negative. Objective Data Objective Data Vital Signs: Vital Signs Temp Pulse Resp BP Pulse Ox 97.8 F 64 20 H 109/74 94 06/23/21 10:02 06/23/21 10:47 06/23/21 10:02 06/23/21 10:02 06/23/21 10:02 Oxygen Flow Rate (L/min) 12 Oxygen Delivery Method Bi-pap Weight: 178 lb 5.663 oz Body Mass Index (BMI) 26.3 Intake & Output: Intake and Output for Last 24 Hours 06/21/21 06/22/21 06/23/21 23:59 23:59 23:59 Intake Total 497.00 / 497.00 487.5 / 487.5 162 / 162 Output Total 450 / 450 900 / 900 Balance 497.00 / 497.00 37.5 / 37.5 -738 / -738 Lab / Micro Data Result Diagrams: 06/23/21 06:17 06/23/21 06:17 Labs: Laboratory Results - last 24 hr 06/23/21 06:17: WBC 5.3, RBC 4.54, Hgb 13.4, Hct 40.5, MCV 89.2, MCH 29.5, MCHC 33.1, RDW Std Deviation 42.6, RDW Coeff of Allyssa 13.1, Plt Count 298, MPV 9.1, Immature Gran % (Auto) 3.000 H, Neut % (Auto) 85.2 H, Lymph % (Auto) 5.7 L, [place] % (Auto) 5.7, Eos % (Auto) 0.0, Baso % (Auto) 0.4, Absolute Neuts (auto) 4.5, Absolute Lymphs (auto) 0.30 L, Nucleated RBC % 0 06/23/21 06:17: Sodium 142, Potassium 3.7, Chloride 106, Carbon Dioxide 29.0, Anion Gap 7, BUN 29 H, Creatinine 0.47 L, Estim Creat Clear Calc 124.71, Est GFR (MDRD) Af Amer 171, Est GFR (MDRD) Non-Af 141, BUN/Creatinine Ratio 61.7 H, Glucose 84, Calcium 8.9 Micro: Microbiology 06/15/21 14:15 Blood Culture (Wb) - Left Hand Blood Culture - Final No growth in 5 days. 06/15/21 13:43 Blood Culture (Wb) - Anticubital Left Blood Culture - Final No growth in 5 days. 06/16/21 09:43 Sputum, Expectorated/Coughed Gram Stain - Final 06/16/21 09:43 Sputum, Expectorated/Coughed Respiratory Culture - Preliminary Possible Fungus 06/16/21 09:43 Urine, Clean Catch Streptococcus pneumoniae Antigen (M - Final 06/16/21 09:43 Urine, Clean Catch Legionella Antigen - Final Physical Exam Const alert, oriented x3 and no apparent distress General Appearance: cooperative Exam Limitations: no limitations HEENT normocephalic, head/scalp atraumatic, hearing grossly normal bilaterally, moist oral mucous membranes and dentition normal Head and Scalp: normocephalic Eyes PERRL, EOMs intact bilaterally and conjunctivae normal Neck no lymphadenopathy, supple and no JVD Resp Resp Narrative: diminished breath sounds bibasally, no wheezes or crackles. still on BIPAP. Auscultation: rhonchi; Negative for crackles or rales Cardio regular rate, regular rhythm, S1 normal heart sound, S2 normal heart sound, no murmurs, no rub, no gallops, no clicks and no JVD GI normal to inspection, nondistended, normoactive bowel sounds, soft to palpation, non-tender and non-distended; Negative for hepatosplenomegaly Extremity normal to inspection, full ROM and no clubbing, cyanosis or edema Peripheral Pulses: Yes pulses 2+ throughout Skin no rashes or lesions noted, no wounds, no jaundice, no petechiae and no mottling Neuro oriented x3, CN's II-XII intact bilaterally, moves all extremities, no focal motor deficits and no sensory deficits noted Sensorium / Orientation: awake and alert Speech: speech normal Psych affect normal Appearance: appropriate Assessment & Plan Assessment/Plan (1) Acute respiratory failure with hypoxia: (2) COVID-19: PLAN: #Acute hypoxic respiratory failure due to COVID 19 infection. * patient still remains on BIPAP. * critical care on board * titrate oxygen to maintain sats >90% * has completed a course of remdesivir; on decadron * breathing treatment with bronchodilators. * #COVID 19 pneumonia: * as above. On IV unasyn also due to concerns about aspiration pneumonia #Aspiration pneumonia * on IV unasyn due to concerns about aspiration pneumonia; to complete a 7 day course of antibiotics * counseled to not eat when she has the BIPAP mask on. * #History of microscopic polyangitis with granulomatosis * on chronic prednisone and hydroxychloroquine * #Hypertension;on amlodipine and carvedilol #hyperlipidemia: on statin #Fibromyalgia: on pregabalin and duloxetine. DVT prophylaxis: lovenox 40mg bid Charges/Coding Visit Charges Inpatient E&M: 78192 Subs Hosp L3
--- NOTE | 2021-06-23 13:14 | NURSING ---
PT TRANSFERING TO ICU5 VIA BED W/BIPAP
[2021-06-23] MEDS: Ipratropium/Albuterol Sulfate 3 ML AMPUL.NEB INHALATION ×2 (13:25→20:17)
[2021-06-23] MEDS: Furosemide 40 MG/4 ML Vial IV (13:38)
[2021-06-23] MEDS: MELATONIN 3 MG TABLET PO (21:52)
[2021-06-23] MEDS: Amitriptyline 25 MG Tablet 50 MG PO (21:53)
[2021-06-24] VITALS (37 sets, daily range): BP systolic 81–132; BP diastolic 52–87; PULSE 53–83; RESP 14–92; TEMP 36.2–36.6; O2SAT 89–96
[2021-06-24] MEDS: 0.9% Saline Lock 10 ML Syringe IV ×3 (04:23→21:26)
[2021-06-24 04:34] LABS: Absolute Lymphocyte Count 0.32 X10^3/uL (0.83-4.51); Absolute Neutrophil Count 6.8 X10^3/uL (2.0-7.7); Basophil# 0.02 X10^3/uL; Basophil% 0.3 % (0-1); Hematocrit 42.5 % (37-47); Hemoglobin 13.8 g/dL (12.0-15.0); Lymphocyte # 0.32 X10^3/ul (0.83-4.51); Lymphocyte % 4.2 % (19-41); Mean Corp Hgb Conc 32.5 g/dL (32-36); Mean Corpuscular Hgb 29.1 pg (27.0-32.0); Mean Corpuscular Volume 89.5 fL (81-99); Monocyte# 0.41 X10^3/uL; Monocyte% 5.3 % (0-10); NRBC Flagged by Analyzer 0 % (0-5); Neutrophil # 6.82 X10^3/uL (2.7-7.7); Neutrophil % 88.9 % (47-70); POSITIVE DIFFERENTIAL YES; Platelet Count 305 K/mm3 (150-450); RBC Distribution Width SD 43.1 fl (35.1-43.9); Red Blood Count 4.75 M/mm3 (4.2-5.4); White Blood Count 7.7 K/mm3 (4.4-11.0)
[2021-06-24 04:38] LABS: Differential Indicated SCAN CRITERIA MET
[2021-06-24 04:49] LABS: Anion Gap 8 (5-15); BUN 43 mg/dL (7-18); BUN/Creat Ratio 58.3 RATIO (10-20); Calcium,Total 9.2 mg/dL (8.5-10.1); Chloride 107 mmol/L (98-107); Creatinine, Serum 0.74 mg/dL (0.55-1.02); EST Glomerular Filtration Rate 84 mL/min (>60); Est Glom Filt Rate - Afr Amer 102 mL/min (>60); Estimated Creatinine Clearance 79.21 ml/min; Glucose 93 mg/dL (74-106); Potassium 3.3 mmol/L (3.5-5.1); Sodium Level 147 mmol/L (136-145)
[2021-06-24 05:14] LABS: Differential Comment SCANNED
--- NOTE | 2021-06-24 06:42 | PN.CC_ITS ---
Assessment & Plan Assessment/Plan (1) Acute respiratory failure with hypoxia: (2) COVID-19: PLAN: RECOMMENDATIONS: 1. Continue patient on AVAPS therapy and wean FiO2 to maintain oxygen satu rations at or above 90%. 2. Start Precedex today to facilitate BiPAP compliance. 3. Continue Decadron to complete 10-day treatment course. 4. Continue antimicrobials to complete 7 days of treatment. 5. Continue Lovenox twice daily. 6. Continue bronchodilator therapy. 7. Encourage awake prone positioning. 8. Attempt gentle diuresis as tolerated by hemodynamics and renal function. 9. The patient should be made n.p.o. while on continuous noninvasive positive pressure ventilatory support. IMPRESSIONS: 1. Acute hypoxemic respiratory failure secondary to COVID-19 pneumonia The patient has completed a treatment course of remdesivir and will remain on Decadron to complete a 10-day course. Given that her presenting chest imaging demonstrated a right lower lobe infiltrate, antimicrobials will be continued to complete a 7-day treatment course. Continue to diurese the patient today as tolerated by hemodynamics and renal function. Encourage awake prone positioning. Continue Lovenox twice daily, along with bronchodilator therapy. Continue AVAPS as tolerated and wean FiO2 to maintain saturations at or above 90%. If no improvement in respiratory status over the next 24 hours, may need to consider intubation. 2. History of MPA The patient at her baseline is on prednisone and hydroxychloroquine. 3. Hypertension/fibromyalgia/depression/anxiety Complicates care, management, recovery and prognosis. Continue home medications as indicated. TIME: 33 minutes of critical care time, independent of procedures, was spent addressing the patient's acute hypoxemic respiratory failure secondary to COVID- 19 pneumonia, review of all data, and collaboration with care team. ([id number]) Subjective Subjective The patient was seen and examined at the bedside this morning. Events from the last 24 hours have been reviewed. The patient is currently afebrile, hemodynamically stable and maintaining appropriate oxygen saturations on AVAPS with an FiO2 requirement of 85%. The patient is currently documented to be overall net +3.6 L for the hospital admission. Potassium is low this morning at 3.3. Chemistry profile remains within normal limits. The patient remains on empiric antimicrobials along with Decadron and twice daily Lovenox. IV Lasix x1 was ordered this morning. Objective Data Objective Data The patient's most recent lab work, culture data and imaging studies have all been personally reviewed. Strep and urine Legionella antigens were negative. Vital Signs: Vital Signs Temp Pulse Resp BP Pulse Ox 97.8 F 65 23 H 107/70 93 06/24/21 04:00 06/24/21 06:00 06/24/21 06:00 06/24/21 06:00 06/24/21 06:00 Oxygen Flow Rate (L/min) 12 Oxygen Delivery Method Bi-pap Weight: 74.5 kg Body Mass Index (BMI) 26.3 Intake & Output: Intake and Output for Last 24 Hours 06/22/21 06/23/21 06/24/21 23:59 23:59 23:59 Intake Total 487.5 / 487.5 596 / 836 410.75 / 410.75 Output Total 450 / 450 2100 / 2300 200 / 200 Balance 37.5 / 37.5 -1504 / -1464 210.75 / 210.75 Lab / Micro Data Attestation: I reviewed the patient's lab results. Result Diagrams: 06/24/21 04:20 06/24/21 04:20 Labs: Laboratory Results - last 24 hr 06/23/21 06:17: WBC 5.3, RBC 4.54, Hgb 13.4, Hct 40.5, MCV 89.2, MCH 29.5, MCHC 33.1, RDW Std Deviation 42.6, RDW Coeff of Allyssa 13.1, Plt Count 298, MPV 9.1, Immature Gran % (Auto) 3.000 H, Neut % (Auto) 85.2 H, Lymph % (Auto) 5.7 L, [place] % (Auto) 5.7, Eos % (Auto) 0.0, Baso % (Auto) 0.4, Absolute Neuts (auto) 4.5, Absolute Lymphs (auto) 0.30 L, Nucleated RBC % 0 06/23/21 06:17: Sodium 142, Potassium 3.7, Chloride 106, Carbon Dioxide 29.0, Anion Gap 7, BUN 29 H, Creatinine 0.47 L, Estim Creat Clear Calc 124.71, Est GFR (MDRD) Af Amer 171, Est GFR (MDRD) Non-Af 141, BUN/Creatinine Ratio 61.7 H, Glucose 84, Calcium 8.9 06/24/21 04:20: WBC 7.7, RBC 4.75, Hgb 13.8, Hct 42.5, MCV 89.5, MCH 29.1, MCHC 32.5, RDW Std Deviation 43.1, RDW Coeff of Allyssa 13.0, Plt Count 305, MPV 9.0, Immature Gran % (Auto) 1.300 H, Neut % (Auto) 88.9 H, Lymph % (Auto) 4.2 L, [place] % (Auto) 5.3, Eos % (Auto) 0.0, Baso % (Auto) 0.3, Absolute Neuts (auto) 6.8, Absolute Lymphs (auto) 0.32 L, Nucleated RBC % 0, Differential Comment SCANNED 06/24/21 04:20: Sodium 147 H, Potassium 3.3 L, Chloride 107, Carbon Dioxide 32.0, Anion Gap 8, BUN 43 H, Creatinine 0.74, Estim Creat Clear Calc 79.21, Est GFR (MDRD) Af Amer 102, Est GFR (MDRD) Non-Af 84, BUN/Creatinine Ratio 58.3 H, Glucose 93, Calcium 9.2 Micro: Microbiology 06/15/21 14:15 Blood Culture (Wb) - Left Hand Blood Culture - Final No growth in 5 days. 06/15/21 13:43 Blood Culture (Wb) - Anticubital Left Blood Culture - Final No growth in 5 days. 06/16/21 09:43 Sputum, Expectorated/Coughed Gram Stain - Final 06/16/21 09:43 Sputum, Expectorated/Coughed Respiratory Culture - Preliminary Possible Fungus 06/16/21 09:43 Urine, Clean Catch Streptococcus pneumoniae Antigen (M - Final 06/16/21 09:43 Urine, Clean Catch Legionella Antigen - Final Physical Exam Const alert General Appearance: cooperative, comfortable and on BiPAP HEENT normocephalic and head/scalp atraumatic Eyes PERRL, EOMs intact bilaterally and conjunctivae normal Neck supple General: trachea midline Chest inspection of chest normal Resp Effort and Inspection: tachypneic Auscultation: diminished lung sounds; Negative for rales, rhonchi or wheezes Cardio regular rate and regular rhythm GI normal to inspection, nondistended, normoactive bowel sounds Extremity no clubbing, cyanosis or edema Skin no rashes or lesions noted Neuro no focal motor deficits Psych Mood & Affect: anxious Charges/Coding Procedures Hospitalists Procedures: 45210 Critial Care 1st Hr
[2021-06-24] MEDS: Ipratropium/Albuterol Sulfate 3 ML AMPUL.NEB INHALATION ×3 (07:22→19:46)
[2021-06-24] MEDS: Potassium Chloride 10mEq/100mL 10 MEQ/100 ML IV.SOLN. 100 MEQ IV BOLUS ×4 (08:25→12:08)
[2021-06-24] MEDS: Furosemide 40 MG/4 ML Vial IV (08:26)
[2021-06-24] MEDS: dexAMETHasone 4 MG Tablet 6 MG PO (08:37)
[2021-06-24] MEDS: Hydroxychloroquine 200 MG Tablet PO ×2 (08:37→21:26)
[2021-06-24] MEDS: guaiFENesin 1,200 MG Tablet 1200 MG PO ×2 (08:37→21:25)
[2021-06-24] MEDS: Enoxaparin 40 MG/0.4 ML Syringe SC ×2 (08:37→21:25)
[2021-06-24] MEDS: DULoxetine Hcl 60 MG Capsule PO ×2 (08:37→21:26)
[2021-06-24] MEDS: Famotidine 20 MG Tablet PO ×2 (08:38→21:26)
[2021-06-24] MEDS: Carvedilol 3.125 MG TABLET PO ×2 (08:38→21:25)
[2021-06-24] MEDS: MILNACIPRAN HCL 50 MG TABLET PO ×2 (08:38→21:27)
[2021-06-24] MEDS: amLODIPine 2.5 MG Tablet PO (08:38)
[2021-06-24] MEDS: Pregabalin 75 MG Capsule 150 MG PO ×2 (10:01→21:26)
--- NOTE | 2021-06-24 10:56 | NURSING ---
pt pulling at bipap mask, crying, restless in the bed stating several times I'm gonna . Staff offer comfort and encouraged breathing exercises. pt kept moving mask to talk. Staff educated pt on importance of leaving mask in place without success. Doctor notified order for Precedex given. pt currently resting in bed eyes closed, call light within reach.
--- NOTE | 2021-06-24 11:22 | PN.HOSP_ITS ---
Subjective Subjective Patient seen and examined. She was transferred to the ICU yesterday due to worsening shortness of breath. Patient was on AVAPS at time of review. She was on FiO2 of 85%. She had no active complaints and felt her breathing was the same. Review of systems otherwise negative. She is mildly tachypneic today. Objective Data Objective Data Vital Signs: Vital Signs Temp Pulse Resp BP Pulse Ox 97.2 F L 64 22 H 101/74 96 06/24/21 10:57 06/24/21 10:57 06/24/21 10:57 06/24/21 10:57 06/24/21 10:57 Oxygen Flow Rate (L/min) 12 Oxygen Delivery Method Bi-pap Weight: 164 lb 3.91 oz Body Mass Index (BMI) 26.3 Intake & Output: Intake and Output for Last 24 Hours 06/22/21 06/23/21 06/24/21 23:59 23:59 23:59 Intake Total 487.5 / 487.5 596 / 836 714.42 / 714.42 Output Total 450 / 450 2100 / 2300 200 / 200 Balance 37.5 / 37.5 -1504 / -1464 514.42 / 514.42 Lab / Micro Data Result Diagrams: 06/24/21 04:20 06/24/21 04:20 Labs: Laboratory Results - last 24 hr 06/24/21 04:20: WBC 7.7, RBC 4.75, Hgb 13.8, Hct 42.5, MCV 89.5, MCH 29.1, MCHC 32.5, RDW Std Deviation 43.1, RDW Coeff of Allyssa 13.0, Plt Count 305, MPV 9.0, Immature Gran % (Auto) 1.300 H, Neut % (Auto) 88.9 H, Lymph % (Auto) 4.2 L, [place] % (Auto) 5.3, Eos % (Auto) 0.0, Baso % (Auto) 0.3, Absolute Neuts (auto) 6.8, Absolute Lymphs (auto) 0.32 L, Nucleated RBC % 0, Differential Comment SCANNED 06/24/21 04:20: Sodium 147 H, Potassium 3.3 L, Chloride 107, Carbon Dioxide 32.0, Anion Gap 8, BUN 43 H, Creatinine 0.74, Estim Creat Clear Calc 79.21, Est GFR (MDRD) Af Amer 102, Est GFR (MDRD) Non-Af 84, BUN/Creatinine Ratio 58.3 H, Glucose 93, Calcium 9.2 Micro: Microbiology 06/15/21 14:15 Blood Culture (Wb) - Left Hand Blood Culture - Final No growth in 5 days. 06/15/21 13:43 Blood Culture (Wb) - Anticubital Left Blood Culture - Final No growth in 5 days. 06/16/21 09:43 Sputum, Expectorated/Coughed Gram Stain - Final 06/16/21 09:43 Sputum, Expectorated/Coughed Respiratory Culture - Prelimin juan Possible Fungus 06/16/21 09:43 Urine, Clean Catch Streptococcus pneumoniae Antigen (M - Final 06/16/21 09:43 Urine, Clean Catch Legionella Antigen - Final Physical Exam Const alert, oriented x3 and no apparent distress General Appearance: cooperative Exam Limitations: no limitations Nutritional Appearance: overweight HEENT normocephalic, head/scalp atraumatic, hearing grossly normal bilaterally, moist oral mucous membranes and dentition normal Head and Scalp: normocephalic Eyes PERRL, EOMs intact bilaterally and conjunctivae normal Neck no lymphadenopathy, supple and no JVD Neck Narrative: Trachea is midline, no thyroid enlargement or nodules noted Resp Resp Narrative: diminished breath sounds bibasally, no wheezes or crackles. still on BIPAP. Cardio regular rate, regular rhythm, S1 normal heart sound, S2 normal heart sound, no murmurs, no rub, no gallops, no clicks and no JVD GI normal to inspection, nondistended, normoactive bowel sounds, soft to palpation, non-tender and non-distended; Negative for hepatosplenomegaly Extremity normal to inspection, full ROM and no clubbing, cyanosis or edema Peripheral Pulses: Yes pulses 2+ throughout Skin no rashes or lesions noted, no wounds, no jaundice, no petechiae and no mottling Neuro oriented x3, CN's II-XII intact bilaterally, moves all extremities, no focal motor deficits and no sensory deficits noted Sensorium / Orientation: awake and alert Speech: speech normal Motor Exam: strength 5/5 throughout Psych affect normal Appearance: appropriate Assessment & Plan Assessment/Plan (1) Acute respiratory failure with hypoxia: (2) COVID-19: PLAN: #Acute hypoxic respiratory failure due to COVID 19 infection. * patient still remains on BIPAP. * transferred to the ICU yesterday due to respiratory status worsening. * critical care on board * titrate oxygen to maintain sats >90% * has completed a course of remdesivir; on decadron * breathing treatment with bronchodilators. * patient started on precedex to enable compliance with her BIPAP mask. * #COVID 19 pneumonia: * as above. On IV unasyn also due to concerns about aspiration pneumonia #Aspiration pneumonia * on IV unasyn due to concerns about aspiration pneumonia; to complete a 7 day course of antibiotics * #History of microscopic polyangitis with granulomatosis * on chronic prednisone and hydroxychloroquine * #Hypertension;on amlodipine and carvedilol #hyperlipidemia: on statin #Fibromyalgia: on pregabalin and duloxetine. DVT prophylaxis: lovenox 40mg bid Charges/Coding Visit Charges Inpatient E&M: 24157 Subs Hosp L3
--- NOTE | 2021-06-24 18:49 | NURSING ---
pt agitated and restless in bed. Staff responded to monitor alarm. Pt had mask half off her face talking to family on cellphone. pt crying not listening to staff request to stop removing mask to talk on phone. bipap Mask repositioned on pt face oxygen, increased to 80% spo2 increased to 90%. Spoke with Santos on the pt cellphone explained why pt oxygen was dropping and anxiety increased and importance of pt keeping mask on at all times. unless staff is in room to assist the pt. Santos expressed understanding. Pt resting in bed call light within reach.
[2021-06-24] MEDS: Amitriptyline 25 MG Tablet 50 MG PO (21:26)
[2021-06-25] VITALS (38 sets, daily range): BP systolic 81–179; BP diastolic 54–98; PULSE 52–82; RESP 12–36; TEMP 36.3–38.4; O2SAT 85–100
--- NOTE | 2021-06-25 07:02 | PCM.PN.INT ---
Assessment & Plan Assessment/Plan (1) Acute respiratory failure with hypoxia: (2) COVID-19: PLAN: RECOMMENDATIONS: 1. Continue patient on assist control mode of mechanical ventilation. Wean FiO2/PEEP to maintain oxygen saturations at or above 90%. 2. Attempt to maintain plateau pressures less than 30. 3. Continue antimicrobials to complete 7-day treatment course. 4. Potassium repletion as ordered. 5. Continue Lovenox twice daily. 6. Continue PRN bronchodilator therapy. 7. Attempt gentle diuresis as tolerated by hemodynamics and renal function. 8. Okay to start tube feeds today. 9. Initiate appropriate GI prophylaxis. IMPRESSIONS: 1. Acute hypoxemic respiratory failure secondary to COVID-19 pneumonia The patient to date has completed a 5-day treatment course of remdesivir along with 10 days of Decadron. She remains on antimicrobials, which will be continued to complete a 7-day treatment course. Despite the aforementioned interventions, the patient has not made any significant improvement from a respiratory perspective and has remained BiPAP dependent for multiple days. Given her lack of clinical improvement, the decision was made to proceed with intubation on June 25. Will obtain and send sputum for culture. We will plan to continue periodic attempts at diuresis as tolerated by hemodynamics and renal function. FiO2 and PEEP will be weaned to maintain oxygen saturations at or above 90%. Tube feeds can be initiated today. 2. History of MPA The patient at her baseline is on prednisone and hydroxychloroquine. 3. Hypertension/fibromyalgia/depression/anxiety Complicates care, management, recovery and prognosis. Continue home medications as indicated. TIME: 40 minutes of critical care time, inclusive of procedures, was spent addressing the patient's acute hypoxemic respiratory failure secondary to COVID-19 pneumonia, review of all data, and collaboration with care team. ([id number]) Subjective Subjective The patient was seen and examined at the bedside this morning. Events from the last 24 hours have been reviewed. The patient is currently afebrile and hemodynamically stable. The patient currently has marginal oxygen saturations on AVAPS with an FiO2 requirement of 90%. The patient has essentially been AVAPS dependent for multiple days now and readily desaturates when removed from any form of noninvasive positive pressure ventilatory support. She is currently documented to be overall net +3.5 L for the hospital admission. She remains on antimicrobials along with Decadron and Lovenox twice daily. Given the patient's lack of clinical improvement and the need for continuous noninvasive positive pressure ventilatory support over multiple consecutive days, which has limited our ability to provide nutritional support, the decision was made to proceed with intubation this morning. Intubation Indication: Respiratory failure Consent was obtained from: Patient The patient was placed in the appropriate sniffing position. Preoxygenated sedation via BiPAP was provided for a minimum of 3 minutes. The patient had continuous cardiac as well as pulse oximetry monitoring during the procedure. Procedure sedation was provided by the administration of 2 mg of Versed, 20 mg of etomidate and 100 mg of succinylcholine. Direct laryngoscopy was then performed using a number 3 MAC blade, which revealed a grade 1 view. A 7.5 mm endotracheal tube was visualized advancing between the cords to the level of 23 cm at the lip. The stylette was then removed and discarded. Tube placement was confirmed by fogging in the tube along with equal and bilateral breath sounds. Colorimetric change was visualized on the CO2 meter. The cuff was then inflated and the tube secured using a commercially available device. A good pulse oximetry waveform was seen on the monitor throughout the procedure. A portable chest x-ray has been ordered to confirm appropriate placement. The patient tolerated the procedure well. Objective Data Objective Data The patient's most recent lab work, culture data and imaging studies have all been personally reviewed. Strep and urine Legionella antigens were negative. Vital Signs: Vital Signs Temp Pulse Resp BP Pulse Ox 98.1 F 67 31 H 127/85 H 90 06/25/21 04:00 06/25/21 06:57 06/25/21 06:57 06/25/21 05:00 06/25/21 06:57 Oxygen Flow Rate (L/min) 12 Oxygen Delivery Method Bi-pap Weight: 75.2 kg Body Mass Index (BMI) 26.3 Intake & Output: Intake and Output for Last 24 Hours 06/23/21 06/24/21 06/25/21 23:59 23:59 23:59 Intake Total 596 / 836 1772.85 / 1785.85 204. / .21 Output Total 2100 / 2300 1800 / 1800 Balance -1504 / -1464 -27.15 / -14.15 . / . Lab / Micro Data Attestation: I reviewed the patient's lab results. Result Diagrams: 06/24/21 04:20 06/25/21 04:45 Micro: Microbiology 06/15/21 14:15 Blood Culture (Wb) - Left Hand Blood Culture - Final No growth in 5 days. 06/15/21 13:43 Blood Culture (Wb) - Anticubital Left Blood Culture - Final No growth in 5 days. 06/16/21 09:43 Sputum, Expectorated/Coughed Gram Stain - Final 06/16/21 09:43 Sputum, Expectorated/Coughed Respiratory Culture - Preliminary Possible Fungus 06/16/21 09:43 Urine, Clean Catch Streptococcus pneumoniae Antigen (M - Final 06/16/21 09:43 Urine, Clean Catch Legionella Antigen - Final Physical Exam Const no apparent distress General Appearance: intubated and patient mechanically ventilated HEENT normocephalic and head/scalp atraumatic Mouth: endotracheal tube in place and OG tube in place Eyes PERRL and conjunctivae normal Neck supple General: trachea midline Resp Auscultation: diminished lung sounds; Negative for rales, rhonchi or wheezes Cardio regular rate and regular rhythm GI normal to inspection, nondistended, normoactive bowel sounds Extremity no clubbing, cyanosis or edema Skin no rashes or lesions noted Neuro no focal motor deficits Sensorium / Orientation: sedated on vent Charges/Coding Procedures Hospitalists Procedures: 47162 Critial Care 1st Hr
[2021-06-25] MEDS: Midazolam 2 MG/2 ML Syringe 4 MG IV (07:29)
[2021-06-25] MEDS: Etomidate 20 MG/10 ML Vial IV (07:30)
[2021-06-25] MEDS: Succinylcholine Chloride 200 MG/10 ML Vial 100 MG IV (07:33)
[2021-06-25 07:35] LABS: CPK Total, Creatine Kinase 16 U/L (26-192); Triglycerides 210 mg/dL
[2021-06-25] MEDS: Propofol 10MG/Ml 1,000 MG/100 ML Bottle 4.5 MG CONT INF (07:35)
--- NOTE | 2021-06-25 07:35 | RAD_ITS ---
STUDY: X-RAY CHEST REASON FOR EXAM: Female, 66 years old. ETT placement TECHNIQUE: Single AP portable view of the chest. COMPARISON: Comparison is made with prior examination 09/20/2021. FINDINGS: An endotracheal tube has been placed. The tip is at 5.2 cm proximal to the leandro. An orogastric tube is seen with the tip in the body of the stomach. EKG electrodes are seen. Surgical clips are once again seen in the overlying the right lateral chest wall. Stable infiltration in the right lung apex as well as in the right midlung. The left lung remains clear. There is no demonstrated pleural abnormality. There is mild cardiac enlargement. Normal mediastinum and mariel. Normal visualized pulmonary arteries. There is atherosclerotic calcification of the aortic arch with tortuosity. Normal visualized thoracic spine. Normal visualized ribs, clavicles, and shoulders. There is no demonstrated abnormality of the visualized soft tissue structures of the upper abdomen. RAD/Chest 1 View (Portable) IMPRESSION: The tip of the endotracheal tube is at 5.2 cm proximal to the leandro. The tip of the orogastric tube is in the body of the stomach. The pulmonary findings are unchanged. Electronically Signed: Dilip Doe MD at 8:29 EDT , Service support ,
--- NOTE | 2021-06-25 07:41 | NURSING ---
Patient being intubated by Dr Pichardo this AM. Fentanyl was running @50mcg/hr started at 07:15 Dr Pichardo in the room @ 07:25 07:29 Versed 2mg given 07:30 Etomidate 20mg given 07:33 Succinylcholine 100mg given 07:34 7.5mm ETT placed (+) color change 23cm@lip 07:35 Propofol @ 10mcg/kg/min started.
[2021-06-25 08:43] LABS: Anion Gap 8 (5-15); BUN 47 mg/dL (7-18); BUN/Creat Ratio 69.7 RATIO (10-20); Calcium,Total 9.1 mg/dL (8.5-10.1); Chloride 110 mmol/L (98-107); Creatinine, Serum 0.67 mg/dL (0.55-1.02); EST Glomerular Filtration Rate 93 mL/min (>60); Est Glom Filt Rate - Afr Amer 113 mL/min (>60); Estimated Creatinine Clearance 87.48 ml/min; Glucose 112 mg/dL (74-106); Sodium Level 146 mmol/L (136-145)
[2021-06-25 09:36] LABS: Allen Test Positive; Base Excess 5 mmol/L (-2 to +2); Bicarbonate 29.9 mmol/L (22-26); Blood Gas Specimen Type ART; FI02 100; Mode AC; O2 Delivery Device Adult Vent; PEEP 10; PO2 91 mmHG (75-100); RR 14; SITE R Radial; SO2 97 % (95-99); Total Carbon Dioxide 31 mmol/L; Vt 400; pCO2 46.4 mmHg (35-45); pH 7.42 (7.35-7.45)
[2021-06-25] MEDS: Carvedilol 3.125 MG TABLET GT (10:31)
[2021-06-25] MEDS: Famotidine 20 MG Tablet GT ×2 (10:31→20:32)
[2021-06-25] MEDS: Hydroxychloroquine 200 MG Tablet GT ×2 (10:31→20:32)
[2021-06-25] MEDS: amLODIPine 2.5 MG Tablet GT (10:32)
[2021-06-25] MEDS: MILNACIPRAN HCL 50 MG TABLET GT ×2 (10:32→20:31)
[2021-06-25] MEDS: Pregabalin 75 MG Capsule 150 MG GT ×2 (10:52→20:29)
[2021-06-25] MEDS: Potassium Chloride IVPB 10 MEQ 100 MEQ IV BOLUS ×4 (10:52→15:31)
[2021-06-25] MEDS: Enoxaparin 40 MG/0.4 ML Syringe SC ×2 (10:52→20:28)
[2021-06-25] MEDS: Senna/Docusate Sodium 1 Tablet 2 TABLET GT ×2 (10:53→20:31)
[2021-06-25 13:16] LABS: Bedside Glucose 123 mg/dL (70-110)
[2021-06-25 15:14] LABS: Absolute Lymphocyte Count 0.25 X10^3/uL (0.83-4.51); Absolute Neutrophil Count 5.8 X10^3/uL (2.0-7.7); Basophil# 0.01 X10^3/uL; Basophil% 0.2 % (0-1); Eosinophil# 0.01 X10^3/uL; Eosinophils% 0.2 % (0-5); Hemoglobin 13.7 g/dL (12.0-15.0); Lymphocyte # 0.25 X10^3/ul (0.83-4.51); Lymphocyte % 3.9 % (19-41); Mean Corp Hgb Conc 31.9 g/dL (32-36); Mean Corpuscular Hgb 29.1 pg (27.0-32.0); Mean Corpuscular Volume 91.3 fL (81-99); Mean Platelet Vol. 9.7 fl (6.2-12.0); Monocyte# 0.28 X10^3/uL; Monocyte% 4.4 % (0-10); NRBC Flagged by Analyzer 0 % (0-5); Neutrophil # 5.81 X10^3/uL (2.7-7.7); Neutrophil % 90.2 % (47-70); POSITIVE DIFFERENTIAL YES; Platelet Count 298 K/mm3 (150-450); RBC Distribution Width CV 13.1 % (11.6-14.6); RBC Distribution Width SD 43.8 fl (35.1-43.9); Red Blood Count 4.71 M/mm3 (4.2-5.4); White Blood Count 6.4 K/mm3 (4.4-11.0)
[2021-06-25 15:17] LABS: Differential Indicated SCAN CRITERIA MET
--- NOTE | 2021-06-25 15:19 | PN.HOSP_ITS ---
Subjective Subjective Patient seen and examined. She was emergently intubated on account of her ripping off her BiPAP mask and rapidly desaturating. At time of review, she was intubated and sedated. Unable to do review of systems due to her being intubated and sedated. Objective Data Objective Data Vital Signs: Vital Signs Temp Pulse Resp BP Pulse Ox 99.0 F 52 L 17 163/77 H 95 06/25/21 13:00 06/25/21 14:03 06/25/21 14:03 06/25/21 13:00 06/25/21 14:03 Oxygen Flow Rate (L/min) 12 Oxygen Delivery Method Mechanical Ventilator Weight: 165 lb 12.602 oz Body Mass Index (BMI) 26.3 Intake & Output: Intake and Output for Last 24 Hours 06/23/21 06/24/21 06/25/21 23:59 23:59 23:59 Intake Total 596 / 836 1772.85 / 1785.85 755.48 / 755.48 Output Total 2100 / 2300 1800 / 1800 950 / 950 Balance -1504 / -1464 -27.15 / -14.15 -194.52 / -194.52 Lab / Micro Data Result Diagrams: 06/25/21 04:45 06/25/21 04:45 Labs: Laboratory Results - last 24 hr 06/25/21 04:45: WBC 6.4, RBC 4.71, Hgb 13.7, Hct 43.0, MCV 91.3, MCH 29.1, MCHC 31.9 L, RDW Std Deviation 43.8, RDW Coeff of Allyssa 13.1, Plt Count 298, MPV 9.7, Immature Gran % (Auto) 1.100 H, Neut % (Auto) 90.2 H, Lymph % (Auto) 3.9 L, [place] % (Auto) 4.4, Eos % (Auto) 0.2, Baso % (Auto) 0.2, Absolute Neuts (auto) 5.8, Absolute Lymphs (auto) 0.25 L, Nucleated RBC % 0 06/25/21 04:45: Sodium 146 H, Potassium 4.0, Chloride 110 H, Carbon Dioxide 28.0, Anion Gap 8, BUN 47 H, Creatinine 0.67, Estim Creat Clear Calc 87.48, Est GFR (MDRD) Af Amer 113, Est GFR (MDRD) Non-Af 93, BUN/Creatinine Ratio 69.7 H, Glucose 112 H, Calcium 9.1 06/25/21 04:45: Total Creatine Kinase 16 L, Triglycerides 210 H 06/25/21 12:49: POC Glucose 123 H Micro: Microbiology 06/25/21 07:40 Sputum, Induced/Lukens Gram Stain - Final 06/15/21 14:15 Blood Culture (Wb) - Left Hand Blood Culture - Final No growth in 5 days. 06/15/21 13:43 Blood Culture (Wb) - Anticubital Left Blood Culture - Final No growth in 5 days. 06/16/21 09:43 Sputum, Expectorated/Coughed Gram Stain - Final 06/16/21 09:43 Sputum, Expectorated/Coughed Respiratory Culture - Preliminary Possible Fungus 06/16/21 09:43 Urine, Clean Catch Streptococcus pneumoniae Antigen (M - Final 06/16/21 09:43 Urine, Clean Catch Legionella Antigen - Final ABG Data ABG results: ABG 06/25/21 09:31 Specimen Type ART Sample Site R Radial pH 7.42 Bicarbonate Actual 29.9 H Total CO2 31 Base Excess 5 H O2 Saturation 97 O2 % 100 ABG pCO2 46.4 H ABG pO2 91 Babar Test Positive Respiration Rate 14 O2 Delivery Device Adult Vent Vent Mode AC Tidal Volume 400 POC PEEP 10 Radiography Diagnostic Testing: Radiology Impression Chest X-Ray 06/25/21 07:35 IMPRESSION: The tip of the endotracheal tube is at 5.2 cm proximal to the leandro. The tip of the orogastric tube is in the body of the stomach. The pulmonary findings are unchanged. Electronically Signed: Dilip Doe MD at 8:29 EDT , Service support , Physical Exam Const Constitutional Narrative: patient intubated, sedated, RASS score is -4 HEENT head/scalp atraumatic and moist oral mucous membranes Head and Scalp: normocephalic Eyes PERRL, EOMs intact bilaterally and conjunctivae normal Neck no lymphadenopathy, supple, no JVD and no carotid bruits Resp Resp Narrative: intubated, sedated, diminished breath sounds bibasally. No wheezes or crackles. Cardio regular rate, regular rhythm, S1 normal heart sound, S2 normal heart sound, no murmurs, no rub, no gallops, no clicks and no JVD GI normal to inspection, nondistended, normoactive bowel sounds, soft to palpation, non-tender and non-distended; Negative for hepatosplenomegaly Extremity normal to inspection, full ROM and no clubbing, cyanosis or edema Peripheral Pulses: Yes pulses 2+ throughout Skin no rashes or lesions noted, no wounds, no jaundice, no petechiae and no mottling Neuro Neuro Narrative: intubated, sedated. Psych Psych Narrative: intubated, sedated. Appearance: appropriate Assessment & Plan Assessment/Plan (1) Acute respiratory failure with hypoxia: (2) COVID-19: PLAN: #Acute hypoxic respiratory failure due to COVID 19 infection. * patient emergently intubated and sedated this lizeth as she was ripping off her bipap mask * vent management as per critical care * on remdesivir and decadron. * breathing treatment with bronchodilators. * titrate oxygen to maintain sats >90% * on precedex * #COVID 19 pneumonia: * as above. On IV unasyn also due to concerns about aspiration pneumonia #Aspiration pneumonia * on IV unasyn due to concerns about aspiration pneumonia; to complete a 7 day course of antibiotics * #History of microscopic polyangitis with granulomatosis * on chronic prednisone and hydroxychloroquine * #Hypertension;on amlodipine and carvedilol #hyperlipidemia: on statin #Fibromyalgia: on pregabalin and duloxetine. DVT prophylaxis: lovenox 40mg bid Charges/Coding Visit Charges Inpatient E&M: 24660 [facility] Hosp L3
[2021-06-25 15:45] LABS: Differential Comment SCANNED
[2021-06-25] MEDS: Vital AF 1.2 Cal Liquid 1,000 ML 55 ML GT (17:55)
[2021-06-25 18:16] LABS: Bedside Glucose 156 mg/dL (70-110)
[2021-06-25] MEDS: Amitriptyline 25 MG Tablet 50 MG GT (20:28)
[2021-06-26] VITALS (33 sets, daily range): BP systolic 83–105; BP diastolic 56–74; PULSE 63–83; RESP 13–29; TEMP 38.3–38.8; O2SAT 85–96
[2021-06-26] MEDS: Chlorhexidine 15 ML PO ×3 (00:50→20:20)
[2021-06-26] MEDS: Propofol 10MG/Ml 1,000 MG/100 ML Bottle 4.5 MG CONT INF (00:51)
[2021-06-26] MEDS: Acetaminophen 650 MG/20 ML UDC GT ×3 (05:03→16:44)
[2021-06-26 05:14] LABS: Absolute Neutrophil Count 7.7 X10^3/uL (2.0-7.7); Basophil# 0.01 X10^3/uL; Basophil% 0.1 % (0-1); Eosinophil# 0.02 X10^3/uL; Eosinophils% 0.2 % (0-5); Hematocrit 42.7 % (37-47); Lymphocyte % 2.4 % (19-41); Mean Corp Hgb Conc 30.4 g/dL (32-36); Mean Corpuscular Volume 95.1 fL (81-99); Mean Platelet Vol. 9.3 fl (6.2-12.0); Monocyte# 0.29 X10^3/uL; Monocyte% 3.5 % (0-10); NRBC Flagged by Analyzer 0 % (0-5); Neutrophil # 7.71 X10^3/uL (2.7-7.7); Neutrophil % 92.8 % (47-70); POSITIVE DIFFERENTIAL YES; Platelet Count 287 K/mm3 (150-450); RBC Distribution Width CV 13.5 % (11.6-14.6); RBC Distribution Width SD 47.5 fl (35.1-43.9); Red Blood Count 4.49 M/mm3 (4.2-5.4); White Blood Count 8.3 K/mm3 (4.4-11.0)
[2021-06-26] MEDS: TITRATION PARAMETER CHANGE 1 EACH IV (05:17)
[2021-06-26 05:18] LABS: Differential Indicated SCAN CRITERIA MET
[2021-06-26 05:40] LABS: Anion Gap 6 (5-15); BUN 70 mg/dL (7-18); BUN/Creat Ratio 60.9 RATIO (10-20); Calcium,Total 8.7 mg/dL (8.5-10.1); Chloride 110 mmol/L (98-107); Creatinine, Serum 1.15 mg/dL (0.55-1.02); EST Glomerular Filtration Rate 50 mL/min (>60); Est Glom Filt Rate - Afr Amer 61 mL/min (>60); Estimated Creatinine Clearance 50.97 ml/min; Glucose 126 mg/dL (74-106); Potassium 4.7 mmol/L (3.5-5.1); Sodium Level 145 mmol/L (136-145)
--- NOTE | 2021-06-26 06:20 | RAD_ITS ---
STUDY: X-RAY CHEST REASON FOR EXAM: Female, 66 years old. OG placement TECHNIQUE: Single AP portable view of the chest. COMPARISON: Comparison is made with prior examination dated 06/25/2021. FINDINGS: An endotracheal tube is in situ. The tip is at 4.3 cm proximal to the leandro. The tip of the orogastric tube is seen below the left hemidiaphragm. EKG electrodes are seen. Stable appearance of both lungs. Once again, surgical clips are seen overlying the right lateral chest wall. There is no demonstrated pleural abnormality. Normal size heart. Normal mediastinum and mariel. Normal visualized pulmonary arteries. There is atherosclerotic calcification of the aortic arch with tortuosity. Normal visualized thoracic spine. Normal visualized ribs, clavicles, and shoulders. There is no demonstrated abnormality of the visualized soft tissue structures of the upper abdomen. RAD/Chest 1 View (Portable) IMPRESSION: Stable examination. Electronically Signed: Dilip Doe MD at 9:57 EDT , Service support ,
--- NOTE | 2021-06-26 07:01 | PCM.PN.INT ---
Assessment & Plan Assessment/Plan (1) Acute respiratory failure with hypoxia: (2) COVID-19: PLAN: RECOMMENDATIONS: 1. Continue to wean FiO2 and PEEP to maintain oxygen saturations at or above 90%. 2. Attempt to maintain plateau pressures less than 30. 3. Broaden antimicrobials given fevers. Consultation placed to infectious diseases. 4. Continue Lovenox twice daily. 5. Continue PRN bronchodilator therapy. 6. Attempt gentle diuresis as tolerated by hemodynamics and renal function. 7. Continue tube feeds as tolerated. 8. Continue appropriate GI prophylaxis. IMPRESSIONS: 1. Acute hypoxemic respiratory failure secondary to COVID-19 pneumonia The patient to date has completed a 5-day treatment course of remdesivir along with 10 days of Decadron. She remains on antimicrobials, which will be continued to complete a 7-day treatment course. Despite the aforementioned interventions, the patient has not made any significant improvement from a respiratory perspective and has remained BiPAP dependent for multiple days. Given her lack of clinical improvement, the decision was made to proceed with intubation on June 25. Following intubation, the patient developed fevers once again. Therefore, her antimicrobials were broadened. Plan to continue her on assist control mode of mechanical ventilation and wean FiO2 and PEEP to maintain saturations at or above 90%. Tube feeds will be continued as tolerated. IV Lasix can be utilized to maintain euvolemic state. 2. History of MPA The patient at her baseline is on prednisone and hydroxychloroquine. 3. Hypertension/fibromyalgia/depression/anxiety Complicates care, management, recovery and prognosis. Continue home medications as indicated. TIME: 34 minutes of critical care time, inclusive of procedures, was spent addressing the patient's acute hypoxemic respiratory failure secondary to COVID-19 pneumonia, review of all data, and collaboration with care team. ([id number]) Subjective Subjective The patient was seen and examined at the bedside this morning. Events from the last 24 hours have been reviewed. The patient did develop a fever overnight with a T-max of 101.6 ?F. She is currently maintaining appropriate oxygen saturations on assist control mode of mechanical ventilation with an FiO2 requirement of 90% and PEEP of 10. The patient remains sedated on both propofol and fentanyl. However, she is alert and able to follow commands. She is currently tolerating tube feeds. The patient is currently documented to be overall net +4.3 L for the hospital admission. Creatinine is increased to 1.15 this morning. The patient remains on antimicrobials and twice daily Lovenox. The patient has already completed a 5-day course of remdesivir and 10 days of Decadron. In light of the patient's fevers noted overnight, her antimicrobials were broadened this morning. Objective Data Objective Data The patient's most recent lab work, culture data and imaging studies have all been personally reviewed. Strep and urine Legionella antigens were negative. Vital Signs: Vital Signs Temp Pulse Resp BP Pulse Ox 101.4 F H 66 15 100/71 90 06/26/21 06:00 06/26/21 06:00 06/26/21 06:00 06/26/21 06:00 06/26/21 06:00 Oxygen Flow Rate (L/min) 12 Oxygen Delivery Method Mechanical Ventilator Weight: 72.6 kg Body Mass Index (BMI) 26.3 Intake & Output: Intake and Output for Last 24 Hours 06/24/21 06/25/21 06/26/21 23:59 23:59 23:59 Intake Total 1772.85 / 1785.85 1584.08 / 1746.58 542.68 / 542.68 Output Total 1800 / 1800 950 / 1200 250 / 250 Balance -27.15 / -14.15 634.08 / 546.58 292.68 / 292.68 Lab / Micro Data Result Diagrams: 06/26/21 04:45 06/26/21 04:45 Labs: Laboratory Results - last 24 hr 06/25/21 04:45: WBC 6.4, RBC 4.71, Hgb 13.7, Hct 43.0, MCV 91.3, MCH 29.1, MCHC 31.9 L, RDW Std Deviation 43.8, RDW Coeff of Allyssa 13.1, Plt Count 298, MPV 9.7, Immature Gran % (Auto) 1.100 H, Neut % (Auto) 90.2 H, Lymph % (Auto) 3.9 L, [place] % (Auto) 4.4, Eos % (Auto) 0.2, Baso % (Auto) 0.2, Absolute Neuts (auto) 5.8, Absolute Lymphs (auto) 0.25 L, Nucleated RBC % 0, Differential Comment SCANNED 06/25/21 04:45: Sodium 146 H, Potassium 4.0, Chloride 110 H, Carbon Dioxide 28.0, Anion Gap 8, BUN 47 H, Creatinine 0.67, Estim Creat Clear Calc 87.48, Est GFR (MDRD) Af Amer 113, Est GFR (MDRD) Non-Af 93, BUN/Creatinine Ratio 69.7 H, Glucose 112 H, Calcium 9.1 06/25/21 04:45: Total Creatine Kinase 16 L, Triglycerides 210 H 06/25/21 12:49: POC Glucose 123 H 06/25/21 17:48: POC Glucose 156 H 06/26/21 04:45: WBC 8.3, RBC 4.49, Hgb 13.0, Hct 42.7, MCV 95.1, MCH 29.0, MCHC 30.4 L, RDW Std Deviation 47.5 H, RDW Coeff of Allyssa 13.5, Plt Count 287, MPV 9.3, Immature Gran % (Auto) 1.000 H, Neut % (Auto) 92.8 H, Lymph % (Auto) 2.4 L, [place] % (Auto) 3.5, Eos % (Auto) 0.2, Baso % (Auto) 0.1, Absolute Neuts (auto) 7.7, Absolute Lymphs (auto) 0.20 L, Nucleated RBC % 0 06/26/21 04:45: Sodium 145, Potassium 4.7, Chloride 110 H, Carbon Dioxide 29.0, Anion Gap 6, BUN 70 H, Creatinine 1.15 H, Estim Creat Clear Calc 50.97, Est GFR (MDRD) Af Amer 61, Est GFR (MDRD) Non-Af 50 L, BUN/Creatinine Ratio 60.9 H, Glucose 126 H, Calcium 8.7 Micro: Microbiology 06/25/21 07:40 Sputum, Induced/Lukens Gram Stain - Final 06/15/21 14:15 Blood Culture (Wb) - Left Hand Blood Culture - Final No growth in 5 days. 06/15/21 13:43 Blood Culture (Wb) - Anticubital Left Blood Culture - Final No growth in 5 days. 06/16/21 09:43 Sputum, Expectorated/Coughed Gram Stain - Final 06/16/21 09:43 Sputum, Expectorated/Coughed Respiratory Culture - Preliminary Possible Fungus 06/16/21 09:43 Urine, Clean Catch Streptococcus pneumoniae Antigen (M - Final 06/16/21 09:43 Urine, Clean Catch Legionella Antigen - Final ABG Data ABG results: ABG 06/25/21 09:31 Specimen Type ART Sample Site R Radial pH 7.42 Bicarbonate Actual 29.9 H Total CO2 31 Base Excess 5 H O2 Saturation 97 O2 % 100 ABG pCO2 46.4 H ABG pO2 91 Babar Test Positive Respiration Rate 14 O2 Delivery Device Adult Vent Vent Mode AC Tidal Volume 400 POC PEEP 10 Radiography Diagnostic Testing: Radiology Impression Chest X-Ray 06/25/21 07:35 IMPRESSION: The tip of the endotracheal tube is at 5.2 cm proximal to the leandro. The tip of the orogastric tube is in the body of the stomach. The pulmonary findings are unchanged. Electronically Signed: Dilip Doe MD at 8:29 EDT , Service support , Physical Exam Const no apparent distress Constitutional Narrative: No ventilator dyssynchrony General Appearance: intubated and patient mechanically ventilated HEENT normocephalic and head/scalp atraumatic Mouth: endotracheal tube in place and OG tube in place Eyes PERRL and conjunctivae normal Neck supple General: trachea midline Resp Auscultation: diminished lung sounds; Negative for rales, rhonchi or wheezes Cardio regular rate and regular rhythm GI normal to inspection, nondistended, normoactive bowel sounds Extremity no clubbing, cyanosis or edema Skin no rashes or lesions noted Neuro no focal motor deficits Sensorium / Orientation: sedated on vent Charges/Coding Procedures Hospitalists Procedures: 54079 Critial Care 1st Hr
--- NOTE | 2021-06-26 08:39 | PCM.RX.CS ---
Consult Type of Consult: New start Suspected Infection: Pneumonia Labs: Sodium 145 mmol/L (136-145) 06/26/21 04:45 Potassium 4.7 mmol/L (3.5-5.1) 06/26/21 04:45 Chloride 110 mmol/L (98-107) H 06/26/21 04:45 Carbon Dioxide 29.0 mmol/L (21.0-32.0) 06/26/21 04:45 Anion Gap 6 (5-15) 06/26/21 04:45 BUN 70 mg/dL (7-18) H 06/26/21 04:45 Creatinine 1.15 mg/dL (0.55-1.02) H 06/26/21 04:45 Est GFR (MDRD) Af Amer 61 mL/min (>60) 06/26/21 04:45 Est GFR (MDRD) Non-Af 50 mL/min (>60) L 06/26/21 04:45 BUN/Creatinine Ratio 60.9 RATIO (10-20) H 06/26/21 04:45 Glucose 126 mg/dL (74-106) H 06/26/21 04:45 Microbiology: Microbiology 06/25/21 07:40 Sputum, Induced/Lukens Gram Stain - Final 06/15/21 14:15 Blood Culture (Wb) - Left Hand Blood Culture - Final No growth in 5 days. 06/15/21 13:43 Blood Culture (Wb) - Anticubital Left Blood Culture - Final No growth in 5 days. 06/16/21 09:43 Sputum, Expectorated/Coughed Gram Stain - Final 06/16/21 09:43 Sputum, Expectorated/Coughed Respiratory Culture - Preliminary Possible Fungus 06/16/21 09:43 Urine, Clean Catch Streptococcus pneumoniae Antigen (M - Final 06/16/21 09:43 Urine, Clean Catch Legionella Antigen - Final Goal Trough: 15-20 mcg/mL Pharmacy Plan for Drug Dosing: NEW START IV VANCOMYCIN Consulting Physician: Cruzito VIVEROS Indication: COPVID PNA Goal Trough: 15-20 SrCr: 1.15 CrCl: 50 ML/MIN Comments: LOADING DOSE 1750MG X1 Vancomcyin Dose: 750MG Q12H TO START @ 199906/26/21 Pending Level: 06/27/21 @ 1930 Pharmacy Service will continue to monitor and adjust dosing as required. Follow-Up Labs: Trough Vancomycin Labs to be done on [date and time ordered]: 06/27/21 1930 VANCOMYCIN LEVEL
--- NOTE | 2021-06-26 09:22 | CASEMGMT ---
SW called , offered support. SW remains available for any supportive needs to family. BING Swartz
[2021-06-26] MEDS: Pregabalin 75 MG Capsule 150 MG GT ×2 (10:26→20:21)
[2021-06-26] MEDS: MILNACIPRAN HCL 50 MG TABLET GT ×2 (10:27→20:22)
[2021-06-26] MEDS: Enoxaparin 40 MG/0.4 ML Syringe SC ×2 (10:27→20:20)
[2021-06-26] MEDS: Senna/Docusate Sodium 1 Tablet 2 TABLET GT ×2 (10:27→20:23)
[2021-06-26] MEDS: Hydroxychloroquine 200 MG Tablet GT ×2 (10:27→20:22)
[2021-06-26] MEDS: Famotidine 20 MG Tablet GT ×2 (10:27→20:22)
[2021-06-26 10:57] LABS: M R Staph aureus DNA By PCR Negative (Negative); Probe Check PASS; Specimen Processing Control PASS
[2021-06-26] MEDS: 0.9% Saline Lock 10 ML Syringe IV (12:53)
[2021-06-26] MEDS: Furosemide 40 MG/4 ML Vial IV (12:54)
--- NOTE | 2021-06-26 13:26 | CASEMGMT ---
[employer] called and left a message with the financial department regarding clarification on pt's insurance. It appears pt has Medicare Part B, and a supplement, but no Medicare part A. BING Swartz
--- NOTE | 2021-06-26 13:33 | CON.PCM.ID_ITS ---
Assessment & Plan Assessment/Plan (1) Microscopic polyangiitis with granulomatosis: (2) Acute respiratory failure with hypoxia: (3) COVID-19: PLAN: Sx started around 06/07. Ok to d/c isolation tomorrow. New fever, on 100% fiO2 on vent. Cxs sent, will order bcx. On vanc/zosyn. New JENIFER. Will restart dex. Will follow, thank you, d/w Dr. Pichardo HPI Consult Data Date of Consult: 06/26/21 HPI Narrative HPI Narrative: ALDEN HERNÁNDEZ, is a 66 F who presented 06/15 with 7-9 days of symptoms, c/o SOB, cough, weakness, aches. She and both sick, unvaccinated. She was given doxy and steroids as outpt but developed fever, came to ED. Admitted, started on remdesivir and dex. Now completed those courses, on vent, new fever to 101.6, JENIFER. Vanc/zosyn added. ROS unobtainable due to intubation [facility] Medical History Arthritis Breast reconstruction deformity Cancer delivery affecting CPAP (continuous positive airway pressure) dependence FH: mastectomy Fibromyalgia Hearing loss, left Hyperlipemia Hypertension Non-smoker Sleep apnea Home Medications milnacipran 50 mg PO BID 11/22/19 [History Last Taken 06/15/21] pregabalin 150 mg PO BID 11/22/19 [History Last Taken 06/15/21] albuterol sulfate 2 inh INHALATION TID PRN 06/15/21 [History Last Taken 2 Days Ago ~06/13/21] amitriptyline 50 mg PO QHS 06/15/21 [History Last Taken 06/14/21] amlodipine 2.5 mg PO DAILY 06/15/21 [History Last Taken 06/15/21] carvedilol 3.125 mg PO BID 06/15/21 [History Last Taken 06/15/21] duloxetine [Cymbalta] 60 mg PO BID 06/15/21 [History Last Taken 06/15/21] multivitamin 1 tab PO DAILY 06/15/21 [History Last Taken 06/15/21] prednisone 5 mg PO DAILY 06/15/21 [History Last Taken 06/15/21] vitamin E 400 unit PO DAILY 06/15/21 [History Last Taken 06/15/21] zinc sulfate 50 mg PO DAILY 06/15/21 [History Last Taken 06/15/21] hydroxychloroquine 200 mg PO BID 06/16/21 [History Last Taken Unknown] Allergy/AdvReac Type Severity Reaction Status Date / Time No Known Allergies Allergy Verified 09/12/20 10:55 Surgical History H/O: hysterectomy Social History Smoking Status: Never smoker Physical Exam Const Constitutional Narrative: ill appearing, intubated HEENT head/scalp atraumatic Eyes PERRL and EOMs intact bilaterally Neck supple Resp Auscultation: diminished lung sounds Cardio regular rate and regular rhythm GI normal to inspection, nondistended, normoactive bowel sounds Extremity no clubbing, cyanosis or edema Skin no rashes or lesions noted Neuro CN's II-XII intact bilaterally Lab / Micro Data Result Diagrams: 06/26/21 04:45 06/26/21 04:45 Labs: Laboratory Results - last 24 hr 06/25/21 04:45: WBC 6.4, RBC 4.71, Hgb 13.7, Hct 43.0, MCV 91.3, MCH 29.1, MCHC 31.9 L, RDW Std Deviation 43.8, RDW Coeff of Allyssa 13.1, Plt Count 298, MPV 9.7, Immature Gran % (Auto) 1.100 H, Neut % (Auto) 90.2 H, Lymph % (Auto) 3.9 L, [place]mer[place] % (Auto) 4.4, Eos % (Auto) 0.2, Baso % (Auto) 0.2, Absolute Neuts (auto) 5.8, Absolute Lymphs (auto) 0.25 L, Nucleated RBC % 0, Differential Comment SCANNED 06/25/21 17:48: POC Glucose 156 H 06/26/21 04:45: WBC 8.3, RBC 4.49, Hgb 13.0, Hct 42.7, MCV 95.1, MCH 29.0, MCHC 30.4 L, RDW Std Deviation 47.5 H, RDW Coeff of Allyssa 13.5, Plt Count 287, MPV 9.3, Immature Gran % (Auto) 1.000 H, Neut % (Auto) 92.8 H, Lymph % (Auto) 2.4 L, [place] % (Auto) 3.5, Eos % (Auto) 0.2, Baso % (Auto) 0.1, Absolute Neuts (auto) 7.7, Absolute Lymphs (auto) 0.20 L, Nucleated RBC % 0 06/26/21 04:45: Sodium 145, Potassium 4.7, Chloride 110 H, Carbon Dioxide 29.0, Anion Gap 6, BUN 70 H, Creatinine 1.15 H, Estim Creat Clear Calc 50.97, Est GFR (MDRD) Af Amer 61, Est GFR (MDRD) Non-Af 50 L, BUN/Creatinine Ratio 60.9 H, Glucose 126 H, Calcium 8.7 06/26/21 08:45: MRSA (PCR) Negative Micro: Microbiology 06/25/21 07:40 Sputum, Induced/Lukens Gram Stain - Final 06/25/21 07:40 Sputum, Induced/Lukens Respiratory Culture - Preliminary Culture exhibits no growth. Radiology Impression Chest X-Ray 06/26/21 06:20 IMPRESSION: Stable examination. Electronically Signed: Dilip Doe MD at 9:57 EDT , Service support ,
--- NOTE | 2021-06-26 15:23 | PN.HOSP_ITS ---
Subjective Subjective Patient seen and examined. She was still intubated and sedated, but arousable. Unable to do review of systems due to her being intubated. Objective Data Objective Data Vital Signs: Vital Signs Temp Pulse Resp BP Pulse Ox 101.5 F H 65 14 92/65 91 06/26/21 12:00 06/26/21 14:00 06/26/21 14:00 06/26/21 14:00 06/26/21 14:00 Oxygen Flow Rate (L/min) 100 Oxygen Delivery Method Mechanical Ventilator Weight: 160 lb 0.889 oz Body Mass Index (BMI) 26.3 Intake & Output: Intake and Output for Last 24 Hours 06/24/21 06/25/21 06/26/21 23:59 23:59 23:59 Intake Total 1772.85 / 1785.85 1584.08 / 1746.58 2219.88 / 2219.88 Output Total 1800 / 1800 950 / 1200 435 / 435 Balance -27.15 / -14.15 634.08 / 546.58 1784.88 / 1784.88 Lab / Micro Data Result Diagrams: 06/26/21 04:45 06/26/21 04:45 Labs: Laboratory Results - last 24 hr 06/25/21 04:45: Differential Comment SCANNED 06/25/21 17:48: POC Glucose 156 H 06/26/21 04:45: WBC 8.3, RBC 4.49, Hgb 13.0, Hct 42.7, MCV 95.1, MCH 29.0, MCHC 30.4 L, RDW Std Deviation 47.5 H, RDW Coeff of Allyssa 13.5, Plt Count 287, MPV 9.3, Immature Gran % (Auto) 1.000 H, Neut % (Auto) 92.8 H, Lymph % (Auto) 2.4 L, [place] % (Auto) 3.5, Eos % (Auto) 0.2, Baso % (Auto) 0.1, Absolute Neuts (auto) 7.7, Absolute Lymphs (auto) 0.20 L, Nucleated RBC % 0 06/26/21 04:45: Sodium 145, Potassium 4.7, Chloride 110 H, Carbon Dioxide 29.0, Anion Gap 6, BUN 70 H, Creatinine 1.15 H, Estim Creat Clear Calc 50.97, Est GFR (MDRD) Af Amer 61, Est GFR (MDRD) Non-Af 50 L, BUN/Creatinine Ratio 60.9 H, Glucose 126 H, Calcium 8.7 06/26/21 08:45: MRSA (PCR) Negative Micro: Microbiology 06/25/21 07:40 Sputum, Induced/Lukens Gram Stain - Final 06/25/21 07:40 Sputum, Induced/Lukens Respiratory Culture - Preliminary Culture exhibits no growth. 06/15/21 14:15 Blood Culture (Wb) - Left Hand Blood Culture - Final No growth in 5 days. 06/15/21 13:43 Blood Culture (Wb) - Anticubital Left Blood Culture - Final No growth in 5 days. 06/16/21 09:43 Sputum, Expectorated/Coughed Gram Stain - Final 06/16/21 09:43 Sputum, Expectorated/Coughed Respiratory Culture - Preliminary Possible Fungus 06/16/21 09:43 Urine, Clean Catch Streptococcus pneumoniae Antigen (M - Final 06/16/21 09:43 Urine, Clean Catch Legionella Antigen - Final Radiography Diagnostic Testing: Radiology Impression Chest X-Ray 06/26/21 06:20 IMPRESSION: Stable examination. Electronically Signed: Dilip Doe MD at 9:57 EDT , Service support , Physical Exam Const alert, oriented x3 and no apparent distress Constitutional Narrative: patient intubated, sedated, RASS score is 0 General Appearance: cooperative Exam Limitations: no limitations HEENT normocephalic, head/scalp atraumatic, hearing grossly normal bilaterally, moist oral mucous membranes and dentition normal Head and Scalp: normocephalic Eyes PERRL, EOMs intact bilaterally and conjunctivae normal Neck no lymphadenopathy, supple, no JVD and no carotid bruits Resp Resp Narrative: intubated, sedated, diminished breath sounds bibasally. No wheezes or crackles. Cardio regular rate, regular rhythm, S1 normal heart sound, S2 normal heart sound, no murmurs, no rub, no gallops, no clicks and no JVD GI normal to inspection, nondistended, normoactive bowel sounds, soft to palpation, non-tender and non-distended; Negative for hepatosplenomegaly Extremity normal to inspection, full ROM and no clubbing, cyanosis or edema Peripheral Pulses: Yes pulses 2+ throughout Skin no rashes or lesions noted, no wounds, no jaundice, no petechiae and no mottling Neuro Neuro Narrative: intubated, sedated. Psych Psych Narrative: intubated, sedated. Appearance: appropriate Assessment & Plan Assessment/Plan (1) Acute respiratory failure with hypoxia: (2) COVID-19: PLAN: #Acute hypoxic respiratory failure due to COVID 19 infection. * remains intubated and sedated. * vent management as per critical care * on remdesivir and decadron. * breathing treatment with bronchodilators. * titrate oxygen to maintain sats >90% * now on propofol and fentanyl * CXR today showed precedex. * #COVID 19 pneumonia: * as above. On IV unasyn also due to concerns about aspiration pneumonia #Aspiration pneumonia * on IV unasyn due to concerns about aspiration pneumonia; to complete a 7 day course of antibiotics * #History of microscopic polyangitis with granulomatosis * on chronic prednisone and hydroxychloroquine * #Hypertension;on amlodipine and carvedilol #hyperlipidemia: on statin #Fibromyalgia: on pregabalin and duloxetine. DVT prophylaxis: lovenox 40mg bid Charges/Coding Visit Charges Inpatient E&M: 06861 [facility] L3
[2021-06-26] MEDS: dexAMETHasone 4 MG Tablet 6 MG PO (15:45)
[2021-06-26] MEDS: Propofol 10MG/Ml 1,000 MG/100 ML Bottle 4.4 MG CONT INF (18:00)
[2021-06-26] MEDS: Amitriptyline 25 MG Tablet 50 MG GT (20:26)
[2021-06-27] VITALS (34 sets, daily range): BP systolic 93–120; BP diastolic 63–84; PULSE 58–84; RESP 13–27; TEMP 37–37.7; O2SAT 86–100
[2021-06-27] MEDS: Vital AF 1.2 Cal Liquid 1,000 ML 55 ML GT ×2 (00:02→16:54)
[2021-06-27] MEDS: Propofol 10MG/Ml 1,000 MG/100 ML Bottle 4.4 MG CONT INF (00:03)
[2021-06-27] MEDS: TITRATION PARAMETER CHANGE 1 EACH IV (05:31)
[2021-06-27 06:37] LABS: Absolute Lymphocyte Count 0.27 X10^3/uL (0.83-4.51); Absolute Neutrophil Count 8.8 X10^3/uL (2.0-7.7); Basophil# 0.02 X10^3/uL; Basophil% 0.2 % (0-1); Eosinophil# 0.01 X10^3/uL; Eosinophils% 0.1 % (0-5); Hematocrit 38.5 % (37-47); Hemoglobin 11.4 g/dL (12.0-15.0); Lymphocyte # 0.27 X10^3/ul (0.83-4.51); Lymphocyte % 2.9 % (19-41); Mean Corp Hgb Conc 29.6 g/dL (32-36); Mean Corpuscular Hgb 29.2 pg (27.0-32.0); Mean Corpuscular Volume 98.5 fL (81-99); Mean Platelet Vol. 9.9 fl (6.2-12.0); Monocyte# 0.22 X10^3/uL; Monocyte% 2.3 % (0-10); NRBC Flagged by Analyzer 0 % (0-5); Neutrophil % 93.1 % (47-70); POSITIVE DIFFERENTIAL YES; Platelet Count 244 K/mm3 (150-450); RBC Distribution Width CV 13.7 % (11.6-14.6); RBC Distribution Width SD 49.9 fl (35.1-43.9); Red Blood Count 3.91 M/mm3 (4.2-5.4); White Blood Count 9.5 K/mm3 (4.4-11.0)
[2021-06-27 06:39] LABS: Differential Indicated SCAN CRITERIA MET
[2021-06-27 06:53] LABS: Anion Gap 5 (5-15); BUN 65 mg/dL (7-18); BUN/Creat Ratio 69.7 RATIO (10-20); Calcium,Total 8.2 mg/dL (8.5-10.1); Chloride 109 mmol/L (98-107); Creatinine, Serum 0.93 mg/dL (0.55-1.02); EST Glomerular Filtration Rate 64 mL/min (>60); Est Glom Filt Rate - Afr Amer 78 mL/min (>60); Estimated Creatinine Clearance 63.03 ml/min; Glucose 220 mg/dL (74-106); Potassium 4.2 mmol/L (3.5-5.1); Sodium Level 144 mmol/L (136-145)
--- NOTE | 2021-06-27 07:30 | PN.CC_ITS ---
Assessment & Plan Assessment/Plan (1) Acute respiratory failure with hypoxia: (2) COVID-19: PLAN: RECOMMENDATIONS: 1. Continue to wean FiO2 and PEEP to maintain oxygen saturations at or above 90%. 2. Attempt to maintain plateau pressures less than 30. 3. Continue antimicrobials per ID recommendations. 4. Continue Lovenox twice daily. 5. Continue PRN bronchodilator therapy. 6. Attempt gentle diuresis as tolerated by hemodynamics and renal function. 7. Continue tube feeds as tolerated. 8. Continue appropriate GI prophylaxis. IMPRESSIONS: 1. Acute hypoxemic respiratory failure secondary to COVID-19 pneumonia The patient to date has completed a 5-day treatment course of remdesivir along with 10 days of Decadron. She remains on antimicrobials, which will be continued per ID recommendations. Despite the aforementioned interventions, the patient has not made any significant improvement from a respiratory perspective and has remained BiPAP dependent for multiple days. Given her lack of clinical improvement, the decision was made to proceed with intubation on June 25. Plan to continue her on assist control mode of mechanical ventilation and wean FiO2 and PEEP to maintain saturations at or above 90%. Tube feeds will be continued as tolerated. IV Lasix can be utilized to maintain euvolemic state. A second round of Decadron has also been initiated. 2. History of MPA The patient at her baseline is on prednisone and hydroxychloroquine. 3. Hypertension/fibromyalgia/depression/anxiety Complicates care, management, recovery and prognosis. Continue home medications as indicated. TIME: 33 minutes of critical care time, inclusive of procedures, was spent addressing the patient's acute hypoxemic respiratory failure secondary to COVID-19 pneumonia, review of all data, and collaboration with care team. ([id number]) Subjective Subjective The patient was seen and examined at the bedside this morning. Events from the last 24 hours have been reviewed. The patient is currently afebrile and hemodynamically stable. She is currently maintaining appropriate oxygen saturations on assist control mode of mechanical ventilation with an FiO2 requirement of 90% and PEEP of 10. Plateau pressures remain consistently below 30. The patient remains sedated on both propofol and fentanyl. However, she is alert and able to follow commands. She is currently tolerating tube feeds. The patient is currently documented to be overall net +7.5 L for the hospital admission. The patient remains on antimicrobials and twice daily Lovenox. The patient has already completed a 5-day course of remdesivir and 10 days of Decadron. Objective Data Objective Data The patient's most recent lab work, culture data and imaging studies have all been personally reviewed. Strep and urine Legionella antigens were negative. Vital Signs: Vital Signs Temp Pulse Resp BP Pulse Ox 98.8 F 59 L 20 H 110/75 93 06/27/21 05:00 06/27/21 07:10 06/27/21 05:00 06/27/21 05:00 06/27/21 05:00 Oxygen Flow Rate (L/min) 100 Oxygen Delivery Method Mechanical Ventilator Weight: 75.3 kg Body Mass Index (BMI) 26.3 Intake & Output: Intake and Output for Last 24 Hours 06/25/21 06/26/21 06/27/21 23:59 23:59 23:59 Intake Total 1584.08 / 1746.58 3636.53 / 4386.93 1441.05 / 1441.05 Output Total 950 / 1200 655 / 895 850 / 850 Balance 634.08 / 546.58 2981.53 / 3491.93 591.05 / 591.05 Lab / Micro Data Attestation: I reviewed the patient's lab results. Result Diagrams: 06/27/21 05:10 06/27/21 05:10 Labs: Laboratory Results - last 24 hr 06/26/21 08:45: MRSA (PCR) Negative 06/27/21 05:10: WBC 9.5, RBC 3.91 L, Hgb 11.4 L, Hct 38.5, MCV 98.5, MCH 29.2, MCHC 29.6 L, RDW Std Deviation 49.9 H, RDW Coeff of Allyssa 13.7, Plt Count 244, MPV 9.9, Immature Gran % (Auto) 1.400 H, Neut % (Auto) 93.1 H, Lymph % (Auto) 2.9 L, [place] % (Auto) 2.3, Eos % (Auto) 0.1, Baso % (Auto) 0.2, Absolute Neuts (auto) 8.8 H, Absolute Lymphs (auto) 0.27 L, Nucleated RBC % 0 06/27/21 05:10: Sodium 144, Potassium 4.2, Chloride 109 H, Carbon Dioxide 30.0, Anion Gap 5, BUN 65 H, Creatinine 0.93, Estim Creat Clear Calc 63.03, Est GFR (MDRD) Af Amer 78, Est GFR (MDRD) Non-Af 64, BUN/Creatinine Ratio 69.7 H, Glucose 220 H, Calcium 8.2 L Micro: Microbiology 06/25/21 07:40 Sputum, Induced/Lukens Gram Stain - Final 06/25/21 07:40 Sputum, Induced/Lukens Respiratory Culture - Preliminary Culture exhibits no growth. 06/15/21 14:15 Blood Culture (Wb) - Left Hand Blood Culture - Final No growth in 5 days. 06/15/21 13:43 Blood Culture (Wb) - Anticubital Left Blood Culture - Final No growth in 5 days. 06/16/21 09:43 Sputum, Expectorated/Coughed Gram Stain - Final 06/16/21 09:43 Sputum, Expectorated/Coughed Respiratory Culture - Preliminary Possible Fungus 06/16/21 09:43 Urine, Clean Catch Streptococcus pneumoniae Antigen (M - Final 06/16/21 09:43 Urine, Clean Catch Legionella Antigen - Final Radiography Diagnostic Testing: Radiology Impression Chest X-Ray 06/26/21 06:20 IMPRESSION: Stable examination. Electronically Signed: Dilip Doe MD at 9:57 EDT , Service support , Physical Exam Const no apparent distress Constitutional Narrative: No ventilator dyssynchrony General Appearance: intubated and patient mechanically ventilated HEENT normocephalic and head/scalp atraumatic Mouth: endotracheal tube in place and OG tube in place Eyes PERRL and conjunctivae normal Neck supple General: trachea midline Resp Auscultation: diminished lung sounds; Negative for rales, rhonchi or wheezes Cardio regular rate and regular rhythm GI normal to inspection, nondistended, normoactive bowel sounds Extremity no clubbing, cyanosis or edema Skin no rashes or lesions noted Neuro no focal motor deficits Sensorium / Orientation: sedated on vent Charges/Coding Procedures Hospitalists Procedures: 10557 Critial Care 1st Hr
[2021-06-27] MEDS: Enoxaparin 40 MG/0.4 ML Syringe SC ×2 (08:21→21:11)
[2021-06-27] MEDS: Famotidine 20 MG Tablet GT ×2 (08:22→21:12)
[2021-06-27] MEDS: Hydroxychloroquine 200 MG Tablet GT ×2 (08:22→21:11)
[2021-06-27] MEDS: Senna/Docusate Sodium 1 Tablet 2 TABLET GT ×2 (08:22→21:12)
[2021-06-27] MEDS: dexAMETHasone 4 MG Tablet 6 MG GT (08:22)
[2021-06-27] MEDS: Pregabalin 75 MG Capsule 150 MG GT ×2 (08:22→21:12)
[2021-06-27] MEDS: MILNACIPRAN HCL 50 MG TABLET GT ×2 (08:23→21:13)
[2021-06-27] MEDS: Chlorhexidine 15 ML PO ×2 (08:23→21:13)
[2021-06-27] MEDS: 0.9% Saline Lock 10 ML Syringe IV ×3 (08:23→20:47)
[2021-06-27] MEDS: Furosemide 40 MG/4 ML Vial IV ×2 (08:23→16:54)
--- NOTE | 2021-06-27 10:20 | NURSING ---
0831- O2 sats dropping to low 70s, ETT suctioned, air added to cuff, FiO2 increased to 100%, respiratory notified. 0850- RT at bedside, more air added to cuff, O2 sats remain low 0900-Dr. Pichardo aware of above, order to increase PEEP 0903- RT increased PEEP to 14.
[2021-06-27] MEDS: Propofol 10MG/Ml 1,000 MG/100 ML Bottle 6.8 MG CONT INF (10:38)
--- NOTE | 2021-06-27 13:54 | PN.HOSP_ITS ---
Subjective Subjective Patient seen and examined. She remains intubated and sedated. She is tachypneic. Her oxygen requirements were increased of I/O 1200% and her PEEP was also increased to 14. Unable to do review of systems as she is intubated. Objective Data Objective Data Vital Signs: Vital Signs Temp Pulse Resp BP Pulse Ox 99.9 F H 76 27 H 100/67 93 06/27/21 13:00 06/27/21 13:48 06/27/21 13:48 06/27/21 13:00 06/27/21 13:48 Oxygen Flow Rate (L/min) 100 Oxygen Delivery Method Mechanical Ventilator Weight: 166 lb 0.129 oz Body Mass Index (BMI) 26.3 Intake & Output: Intake and Output for Last 24 Hours 06/25/21 06/26/21 06/27/21 23:59 23:59 23:59 Intake Total 1584.08 / 1746.58 3636.53 / 4386.93 2648.02 / 2648.02 Output Total 950 / 1200 655 / 895 1250 / 1250 Balance 634.08 / 546.58 2981.53 / 3491.93 1398.02 / 1398.02 Lab / Micro Data Result Diagrams: 06/27/21 05:10 06/27/21 05:10 Labs: Laboratory Results - last 24 hr 06/27/21 05:10: WBC 9.5, RBC 3.91 L, Hgb 11.4 L, Hct 38.5, MCV 98.5, MCH 29.2, MCHC 29.6 L, RDW Std Deviation 49.9 H, RDW Coeff of Allyssa 13.7, Plt Count 244, MPV 9.9, Immature Gran % (Auto) 1.400 H, Neut % (Auto) 93.1 H, Lymph % (Auto) 2.9 L, [place] % (Auto) 2.3, Eos % (Auto) 0.1, Baso % (Auto) 0.2, Absolute Neuts (auto) 8.8 H, Absolute Lymphs (auto) 0.27 L, Nucleated RBC % 0 06/27/21 05:10: Sodium 144, Potassium 4.2, Chloride 109 H, Carbon Dioxide 30.0, Anion Gap 5, BUN 65 H, Creatinine 0.93, Estim Creat Clear Calc 63.03, Est GFR (MDRD) Af Amer 78, Est GFR (MDRD) Non-Af 64, BUN/Creatinine Ratio 69.7 H, Glucose 220 H, Calcium 8.2 L Micro: Microbiology 06/25/21 07:40 Sputum, Induced/Lukens Gram Stain - Final 06/25/21 07:40 Sputum, Induced/Lukens Respiratory Culture - Final Presumptive C albicans 06/15/21 14:15 Blood Culture (Wb) - Left Hand Blood Culture - Final No growth in 5 days. 06/15/21 13:43 Blood Culture (Wb) - Anticubital Left Blood Culture - Final No growth in 5 days. 06/16/21 09:43 Sputum, Expectorated/Coughed Gram Stain - Final 06/16/21 09:43 Sputum, Expectorated/Coughed Respiratory Culture - Preliminary Possible Fungus 06/16/21 09:43 Urine, Clean Catch Streptococcus pneumoniae Antigen (M - Final 06/16/21 09:43 Urine, Clean Catch Legionella Antigen - Final Physical Exam Const Constitutional Narrative: patient intubated, sedated, RASS score is -4 today General Appearance: cooperative Exam Limitations: altered mental status HEENT normocephalic, head/scalp atraumatic, hearing grossly normal bilaterally, moist oral mucous membranes and dentition normal Head and Scalp: normocephalic Eyes PERRL, EOMs intact bilaterally and conjunctivae normal Neck no lymphadenopathy, supple, no JVD and no carotid bruits Neck Narrative: Resp Resp Narrative: intubated, sedated, diminished breath sounds bibasally. No wheezes or crackles. tachypneic Cardio regular rate, regular rhythm, S1 normal heart sound, S2 normal heart sound, no murmurs, no rub, no gallops, no clicks and no JVD GI normal to inspection, nondistended, normoactive bowel sounds, soft to palpation, non-tender and non-distended; Negative for hepatosplenomegaly Extremity normal to inspection, full ROM and no clubbing, cyanosis or edema Skin no rashes or lesions noted, no wounds, no jaundice, no petechiae and no mottling Neuro Neuro Narrative: intubated, sedated. RASS score is -4. Psych Psych Narrative: intubated, sedated. Appearance: appropriate Assessment & Plan Assessment/Plan (1) Acute respiratory failure with hypoxia: (2) COVID-19: PLAN: #Acute hypoxic respiratory failure due to COVID 19 infection. * remains intubated and sedated. Oxygen requirements increased to FiO2 of 100% and her PEEP is also be increased to 14. * vent management as per critical care * Completed a course of remdesivir and Decadron. Dexamethasone restarted per ID. * breathing treatment with bronchodilators. * titrate oxygen to maintain sats >90% * now on propofol and fentanyl * CXR today showed precedex. * Antibiotics broadened to IV Zosyn and vancomycin. ID on board. * #COVID 19 pneumonia: * as above. * IV Unasyn discontinued and patient started on IV vancomycin and Zosyn as patient developed a new fever and hair oxygen requirements have also increased. #History of microscopic polyangitis with granulomatosis * on chronic prednisone and hydroxychloroquine * #Hypertension;on amlodipine and carvedilol #hyperlipidemia: on statin #Fibromyalgia: on pregabalin and duloxetine. Nutrition: On tube feeding DVT prophylaxis: lovenox 40mg bid Prognosis: Guarded. Patient is very critically ill. Charges/Coding Visit Charges Inpatient E&M: 74658 [facility]s Hosp L3
[2021-06-27] MEDS: Polyethylene Glycol 3350 17 GM PACKET GT (17:06)
[2021-06-27 20:19] LABS: Vancomycin, Trough Level 18.7 ug/mL (5.0-15.0)
--- NOTE | 2021-06-27 21:00 | PHA.PHARE_ITS ---
Consult Pharmacy has been consulted to manage selected antiobiotic: Vancomycin Type of Consult: Follow-up Suspected Infection: Pneumonia Labs: Sodium 144 mmol/L (136-145) 06/27/21 05:10 Potassium 4.2 mmol/L (3.5-5.1) 06/27/21 05:10 Chloride 109 mmol/L (98-107) H 06/27/21 05:10 Carbon Dioxide 30.0 mmol/L (21.0-32.0) 06/27/21 05:10 Anion Gap 5 (5-15) 06/27/21 05:10 BUN 65 mg/dL (7-18) H 06/27/21 05:10 Creatinine 0.93 mg/dL (0.55-1.02) 06/27/21 05:10 Est GFR (MDRD) Af Amer 78 mL/min (>60) 06/27/21 05:10 Est GFR (MDRD) Non-Af 64 mL/min (>60) 06/27/21 05:10 BUN/Creatinine Ratio 69.7 RATIO (10-20) H 06/27/21 05:10 Glucose 220 mg/dL (74-106) H 06/27/21 05:10 Vancomycin Trough 18.7 ug/mL (5.0-15.0) H 06/27/21 19:40 Microbiology: Microbiology 06/25/21 07:40 Sputum, Induced/Lukens Gram Stain - Final 06/25/21 07:40 Sputum, Induced/Lukens Respiratory Culture - Final Presumptive C albicans 06/15/21 14:15 Blood Culture (Wb) - Left Hand Blood Culture - Final No growth in 5 days. 06/15/21 13:43 Blood Culture (Wb) - Anticubital Left Blood Culture - Final No growth in 5 days. 06/16/21 09:43 Sputum, Expectorated/Coughed Gram Stain - Final 06/16/21 09:43 Sputum, Expectorated/Coughed Respiratory Culture - Prel iminary Possible Fungus 06/16/21 09:43 Urine, Clean Catch Streptococcus pneumoniae Antigen (M - Final 06/16/21 09:43 Urine, Clean Catch Legionella Antigen - Final Goal Trough: 15-20 mcg/mL Pharmacy Plan for Drug Dosing: Pharmacy Service will continue to monitor and adjust dosing as required. TROUGH 18.7 AT 10.5 HOURS. SCr DECREASED FROM 1.15 TO 0.93. NO CHANGES NEEDED, RECHECK TROUGH IN 4 DAYS Follow-Up Labs: Trough Vancomycin Labs to be done on [date and time ordered]: 07/01 @ 1930
[2021-06-27] MEDS: Amitriptyline 25 MG Tablet 50 MG GT (21:11)
[2021-06-27] MEDS: Propofol 10MG/Ml 1,000 MG/100 ML Bottle 11.3 MG CONT INF (22:30)
[2021-06-28] VITALS (35 sets, daily range): BP systolic 90–143; BP diastolic 59–80; PULSE 57–85; RESP 12–25; TEMP 36.8–37.9; O2SAT 85–97
--- NOTE | 2021-06-28 | RAD_ITS ---
STUDY: X-RAY CHEST REASON FOR EXAM: Female, 66 years old. Concern for pneumomediastinum TECHNIQUE: Portable, upright, AP chest radiograph COMPARISON: 06/26/2021 FINDINGS: Endotracheal tube and enteric catheter remain. Right chest surgical clips remain. Increased right pulmonary infiltrates compared to 06/26/2021. Similar left pulmonary infiltrates. Right greater than left apical thickening redemonstrated. Normal size heart. Normal mediastinum and marile. Normal visualized pulmonary arteries. There is atherosclerotic calcification of the aortic arch with tortuosity. Normal visualized thoracic spine. Normal visualized ribs, clavicles, and shoulders. There is no demonstrated abnormality of the visualized soft tissue structures of the upper abdomen. RAD/Chest 1 View (Portable) IMPRESSION: Right pulmonary infiltrates are increased compared to 06/26/2021. Electronically Signed: Margarito Ny MD at 0:21 EDT Tel , Service support ,
[2021-06-28] MEDS: Propofol 10MG/Ml 1,000 MG/100 ML Bottle 11.3 MG CONT INF ×2 (03:15→12:42)
[2021-06-28 04:19] LABS: Absolute Lymphocyte Count 0.33 X10^3/uL (0.83-4.51); Absolute Neutrophil Count 9.9 X10^3/uL (2.0-7.7); Basophil# 0.02 X10^3/uL; Basophil% 0.2 % (0-1); Eosinophil# 0.03 X10^3/uL; Eosinophils% 0.3 % (0-5); Hematocrit 36.7 % (37-47); Hemoglobin 11.1 g/dL (12.0-15.0); Lymphocyte # 0.33 X10^3/ul (0.83-4.51); Lymphocyte % 3.1 % (19-41); Mean Corp Hgb Conc 30.2 g/dL (32-36); Mean Corpuscular Hgb 28.8 pg (27.0-32.0); Mean Corpuscular Volume 95.3 fL (81-99); Mean Platelet Vol. 10.1 fl (6.2-12.0); Monocyte# 0.28 X10^3/uL; Monocyte% 2.6 % (0-10); NRBC Flagged by Analyzer 0 % (0-5); Neutrophil # 9.86 X10^3/uL (2.7-7.7); Neutrophil % 91.9 % (47-70); POSITIVE DIFFERENTIAL YES; Platelet Count 206 K/mm3 (150-450); RBC Distribution Width CV 13.2 % (11.6-14.6); RBC Distribution Width SD 46.5 fl (35.1-43.9); Red Blood Count 3.85 M/mm3 (4.2-5.4); White Blood Count 10.7 K/mm3 (4.4-11.0)
[2021-06-28 04:27] LABS: Differential Indicated SCAN CRITERIA MET
[2021-06-28 04:40] LABS: ALB/GLOB Ratio 0.5 RATIO (0.9-2.4); AST(SGOT) 23 U/L (15-37); Alanine Aminotransfer ALT/SGPT 20 U/L (13-56); Albumin, Serum 1.6 g/dL (3.2-5.0); Alkaline Phosphatase 41 U/L (45-117); Anion Gap 4 (5-15); BUN 49 mg/dL (7-18); BUN/Creat Ratio 85.4 RATIO (10-20); Chloride 108 mmol/L (98-107); Creatinine, Serum 0.57 mg/dL (0.55-1.02); EST Glomerular Filtration Rate 112 mL/min (>60); Est Glom Filt Rate - Afr Amer 136 mL/min (>60); Estimated Creatinine Clearance 102.83 ml/min; Globulin 3.4 g/dL (2.2-4.2); Glucose 183 mg/dL (74-106); Potassium 3.8 mmol/L (3.5-5.1); Sodium Level 143 mmol/L (136-145)
[2021-06-28 05:45] LABS: Differential Comment SCANNED
--- NOTE | 2021-06-28 06:22 | EKG12_ITS ---
Test Reason : QT PROLONGED Blood Pressure : / mmHG Vent. Rate : 071 BPM Atrial Rate : 071 BPM P-R Int : 204 ms QRS Dur : 122 ms QT Int : 436 ms P-R-T Axes : 026 -44 073 degrees QTc Int : 473 ms Normal sinus rhythm Left axis deviation Septal infarct , age undetermined , cannot be excluded Abnormal ECG Confirmed by ANABELLA CHILEL, ANNIE ([id number]), editorial clerk JENNI DELCID ([id number]) on 07/02/2021 10:12:05 AM Referred By: ANNE Confirmed By:ANNIE KYLE MD
[2021-06-28] MEDS: Bisacodyl 10 MG Suppository RC (06:43)
[2021-06-28 06:45] LABS: Magnesium 2.3 mg/dL (1.6-2.6); Phosphorus 1.5 mg/dL (2.5-4.9)
--- NOTE | 2021-06-28 08:03 | PN.CC_ITS ---
Assessment & Plan Assessment/Plan (1) Acute respiratory failure with hypoxia: (2) COVID-19: PLAN: RECOMMENDATIONS: 1. Continue to wean FiO2 and PEEP to maintain oxygen saturations at or above 90%. 2. Attempt to maintain plateau pressures less than 30. 3. Continue antimicrobials per ID recommendations. 4. Continue Lovenox twice daily. 5. Continue PRN bronchodilator therapy. 6. Attempt gentle diuresis as tolerated by hemodynamics and renal function. 7. Continue tube feeds as tolerated. Electrolyte repletion as indicated 8. Continue appropriate GI prophylaxis. IMPRESSIONS: 1. Acute hypoxemic respiratory failure secondary to COVID-19 pneumonia The patient to date has completed a 5-day treatment course of remdesivir along with 10 days of Decadron. She remains on antimicrobials, which will be continued per ID recommendations. Despite the aforementioned interventions, the patient has not made any significant improvement from a respiratory perspective and has remained BiPAP dependent for multiple days. Given her lack of clinical improvement, the decision was made to proceed with intubation on June 25. Plan to continue her on assist control mode of mechanical ventilation and wean FiO2 and PEEP to maintain saturations at or above 90%. Tube feeds will be continued as tolerated. Patient was positive despite Lasix twice daily yesterday. This will be increased to 3 times daily. A second round of Decadron has also been initiated. 2. History of MPA The patient at her baseline is on prednisone and hydroxychloroquine. 3. Hypertension/fibromyalgia/depression/anxiety Complicates care, management, recovery and prognosis. Continue home medications as indicated. Electrolyte repletion as indicated by labs TIME: 34 minutes of critical care time, inclusive of procedures, was spent addressing the patient's acute hypoxemic respiratory failure secondary to COVID- 19 pneumonia, review of all data, and collaboration with care team. (6 AM to 7 AM) Subjective Subjective Patient did okay overnight. There was some concern for prolonged QT by nursing. No significant arrhythmias were noted. Patient has remained stable on oxygen demands. Objective Data Objective Data Vital Signs: Vital Signs Temp Pulse Resp BP Pulse Ox 37.2 C 68 17 111/70 93 06/28/21 07:00 06/28/21 07:31 06/28/21 07:31 06/28/21 07:00 06/28/21 07:31 Oxygen Flow Rate (L/min) 100 Oxygen Delivery Method Mechanical Ventilator Weight: 75.4 kg Body Mass Index (BMI) 26.3 Intake & Output: Intake and Output for Last 24 Hours 06/26/21 06/27/21 06/28/21 23:59 23:59 23:59 Intake Total 3636.53 / 4386.93 4423.26 / 4967.06 1281.70 / 1281.70 Output Total 655 / 895 1920 / 2170 450 / 450 Balance 2981.53 / 3491.93 2503.26 / 2797.06 831.70 / 831.70 Lab / Micro Data Result Diagrams: 06/28/21 04:00 06/28/21 04:00 Labs: Laboratory Results - last 24 hr 06/27/21 19:40: Vancomycin Trough 18.7 H 06/28/21 04:00: WBC 10.7, RBC 3.85 L, Hgb 11.1 L, Hct 36.7 L, MCV 95.3, MCH 28.8, MCHC 30.2 L, RDW Std Deviation 46.5 H, RDW Coeff of Allyssa 13.2, Plt Count 206, MPV 10.1, Immature Gran % (Auto) 1.900 H, Neut % (Auto) 91.9 H, Lymph % (Auto) 3.1 L, [place] % (Auto) 2.6, Eos % (Auto) 0.3, Baso % (Auto) 0.2, Absolute Neuts (auto) 9.9 H, Absolute Lymphs (auto) 0.33 L, Nucleated RBC % 0, Differential Comment SCANNED 06/28/21 04:00: Sodium 143, Potassium 3.8, Chloride 108 H, Carbon Dioxide 31.0, Anion Gap 4 L, BUN 49 H, Creatinine 0.57, Estim Creat Clear Calc 102.83, Est GFR (MDRD) Af Amer 136, Est GFR (MDRD) Non-Af 112, BUN/Creatinine Ratio 85.4 H, Glucose 183 H, Calcium 8.0 L, Total Bilirubin 0.30, AST 23, ALT 20, Alkaline Phosphatase 41 L, Total Protein 5.0 L, Albumin 1.6 L, Globulin 3.4, Albumin/Globulin Ratio 0.5 L 06/28/21 04:00: Phosphorus 1.5 L, Magnesium 2.3 Micro: Microbiology 06/25/21 07:40 Sputum, Induced/Lukens Gram Stain - Final 06/25/21 07:40 Sputum, Induced/Lukens Respiratory Culture - Final Presumptive C albicans 06/15/21 14:15 Blood Culture (Wb) - Left Hand Blood Culture - Final No growth in 5 days. 06/15/21 13:43 Blood Culture (Wb) - Anticubital Left Blood Culture - Final No growth in 5 days. 06/16/21 09:43 Sputum, Expectorated/Coughed Gram Stain - Final 06/16/21 09:43 Sputum, Expectorated/Coughed Respiratory Culture - Preliminary Possible Fungus 06/16/21 09:43 Urine, Clean Catch Streptococcus pneumoniae Antigen (M - Final 06/16/21 09:43 Urine, Clean Catch Legionella Antigen - Final Physical Exam Const Constitutional Narrative: RASS -3 General Appearance: cooperative, intubated and patient mechanically ventilated HEENT normocephalic, head/scalp atraumatic, hearing grossly normal bilaterally, moist oral mucous membranes and dentition normal Head and Scalp: normocephalic Eyes PERRL, EOMs intact bilaterally and conjunctivae normal Neck no lymphadenopathy, supple, no JVD and no carotid bruits Neck Narrative: Chest inspection of chest normal Chest: symmetrical chest wall rise; Negative for crepitus Resp Auscultation: diminished lung sounds; Negative for rales, rhonchi or wheezes Cardio regular rate, regular rhythm, S1 normal heart sound, S2 normal heart sound, no murmurs, no rub, no gallops, no clicks and no JVD GI normal to inspection, nondistended, normoactive bowel sounds, soft to palpation, non-tender and non-distended; Negative for hepatosplenomegaly Extremity normal to inspection, full ROM and no clubbing, cyanosis or edema Skin no rashes or lesions noted, no wounds, no jaundice, no petechiae and no mottling Neuro moves all extremities and no focal motor deficits Psych Psych Narrative: intubated, sedated. Appearance: appropriate
[2021-06-28] MEDS: Acetaminophen 650 MG/20 ML UDC GT (08:25)
[2021-06-28] MEDS: Famotidine 20 MG Tablet GT ×2 (08:25→22:19)
[2021-06-28] MEDS: Hydroxychloroquine 200 MG Tablet GT ×2 (08:25→22:19)
[2021-06-28] MEDS: Polyethylene Glycol 3350 17 GM PACKET GT (08:25)
[2021-06-28] MEDS: dexAMETHasone 4 MG Tablet 6 MG GT (08:25)
[2021-06-28] MEDS: Chlorhexidine 15 ML PO ×2 (08:26→22:23)
[2021-06-28] MEDS: Pregabalin 75 MG Capsule 150 MG GT ×2 (08:26→22:19)
[2021-06-28] MEDS: Enoxaparin 40 MG/0.4 ML Syringe SC ×2 (08:26→22:21)
[2021-06-28] MEDS: Senna/Docusate Sodium 1 Tablet 2 TABLET GT ×2 (08:26→22:19)
[2021-06-28] MEDS: Furosemide 40 MG/4 ML Vial IV ×3 (08:26→22:21)
[2021-06-28] MEDS: MILNACIPRAN HCL 50 MG TABLET GT ×2 (08:27→22:20)
[2021-06-28] MEDS: CHLORHEXIDINE GLUC 2% CLOTH 1 EACH TOWELETTE TOPICAL (08:29)
--- NOTE | 2021-06-28 10:00 | NURSING ---
call placed to strainer mill operator at this time for PICC placement, will call back with ETA
[2021-06-28] MEDS: Vital AF 1.2 Cal Liquid 1,000 ML 55 ML GT (12:32)
--- NOTE | 2021-06-28 12:44 | NURSING ---
no call back from dolphin researcher, call placed again, ETA for PICC placement is [phone].
--- NOTE | 2021-06-28 15:41 | PN.HOSP_ITS ---
Subjective Subjective Patient seen and examined. He still remains intubated and sedated. No active issues overnight per nurse. CBC and BMP unremarkable. Objective Data Objective Data Vital Signs: Vital Signs Temp Pulse Resp BP Pulse Ox 99.4 F H 62 20 H 104/68 91 06/28/21 15:00 06/28/21 15:22 06/28/21 15:20 06/28/21 15:00 06/28/21 15:20 Oxygen Flow Rate (L/min) 100 Oxygen Delivery Method Mechanical Ventilator Weight: 166 lb 3.657 oz Body Mass Index (BMI) 26.3 Intake & Output: Intake and Output for Last 24 Hours 06/26/21 06/27/21 06/28/21 23:59 23:59 23:59 Intake Total 3636.53 / 4386.93 4423.26 / 4967.06 3254.68 / 3254.68 Output Total 655 / 895 1920 / 2170 1670 / 1670 Balance 2981.53 / 3491.93 2503.26 / 2797.06 1584.68 / 1584.68 Lab / Micro Data Result Diagrams: 06/28/21 04:00 06/28/21 04:00 Labs: Laboratory Results - last 24 hr 06/27/21 19:40: Vancomycin Trough 18.7 H 06/28/21 04:00: WBC 10.7, RBC 3.85 L, Hgb 11.1 L, Hct 36.7 L, MCV 95.3, MCH 28.8, MCHC 30.2 L, RDW Std Deviation 46.5 H, RDW Coeff of Allyssa 13.2, Plt Count 206, MPV 10.1, Immature Gran % (Auto) 1.900 H, Neut % (Auto) 91.9 H, Lymph % (Auto) 3.1 L, [place] % (Auto) 2.6, Eos % (Auto) 0.3, Baso % (Auto) 0.2, Absolute Neuts (auto) 9.9 H, Absolute Lymphs (auto) 0.33 L, Nucleated RBC % 0, Differential Comment SCANNED 06/28/21 04:00: Sodium 143, Potassium 3.8, Chloride 108 H, Carbon Dioxide 31.0, Anion Gap 4 L, BUN 49 H, Creatinine 0.57, Estim Creat Clear Calc 102.83, Est GFR (MDRD) Af Amer 136, Est GFR (MDRD) Non-Af 112, BUN/Creatinine Ratio 85.4 H, Glucose 183 H, Calcium 8.0 L, Total Bilirubin 0.30, AST 23, ALT 20, Alkaline Phosphatase 41 L, Total Protein 5.0 L, Albumin 1.6 L, Globulin 3.4, Albumin/Globulin Ratio 0.5 L 06/28/21 04:00: Phosphorus 1.5 L, Magnesium 2.3 Micro: Microbiology 06/26/21 12:55 Blood Culture (Wb) - Right Hand Blood Culture - Preliminary No growth in 48 hours. 06/26/21 12:55 Blood Culture (Wb) - Left Wrist Blood Culture - Preliminary No growth in 48 hours. 06/25/21 07:40 Sputum, Induced/Lukens Gram Stain - Final 06/25/21 07:40 Sputum, Induced/Lukens Respiratory Culture - Final Presumptive C albicans 06/15/21 14:15 Blood Culture (Wb) - Left Hand Blood Culture - Final No growth in 5 days. 06/15/21 13:43 Blood Culture (Wb) - Anticubital Left Blood Culture - Final No growth in 5 days. 06/16/21 09:43 Sputum, Expectorated/Coughed Gram Stain - Final 06/16/21 09:43 Sputum, Expectorated/Coughed Respiratory Culture - Preliminary Possible Fungus 06/16/21 09:43 Urine, Clean Catch Streptococcus pneumoniae Antigen (M - Final 06/16/21 09:43 Urine, Clean Catch Legionella Antigen - Final Physical Exam Const alert, oriented x3 and no apparent distress Constitutional Narrative: patient intubated, sedated, RASS score is -4 today General Appearance: cooperative Exam Limitations: altered mental status Nutritional Appearance: overweight HEENT normocephalic, head/scalp atraumatic, hearing grossly normal bilaterally, moist oral mucous membranes and dentition normal Head and Scalp: normocephalic Eyes PERRL, EOMs intact bilaterally and conjunctivae normal Neck no lymphadenopathy, supple, no JVD and no carotid bruits Neck Narrative: Resp normal respiratory effort, no retractions and no use of accessory muscles Resp Narrative: intubated, sedated, diminished breath sounds bibasally. No wheezes or crackles. Auscultation: crackles; Negative for rales Cardio regular rate, regular rhythm, S1 normal heart sound, S2 normal heart sound, no murmurs, no rub, no gallops, no clicks and no JVD GI normal to inspection, nondistended, normoactive bowel sounds, soft to palpation, non-tender and non-distended; Negative for hepatosplenomegaly Extremity normal to inspection, full ROM and no clubbing, cyanosis or edema Skin no rashes or lesions noted, no wounds, no jaundice, no petechiae and no mottling Neuro Neuro Narrative: intubated, sedated. RASS score is -4. Sensorium / Orientation: alert Psych Psych Narrative: intubated, sedated. Appearance: appropriate Assessment & Plan Assessment/Plan (1) Acute respiratory failure with hypoxia: (2) COVID-19: PLAN: #Acute hypoxic respiratory failure due to COVID 19 infection. * remains intubated and sedated. * vent management as per critical care * Completed a course of remdesivir and Decadron. Dexamethasone restarted per ID. * breathing treatment with bronchodilators. * titrate oxygen to maintain sats >90% * now on propofol and fentanyl * CXR today showed precedex. * Antibiotics broadened to IV Zosyn and vancomycin. ID on board. * #COVID 19 pneumonia: * as above. * on IV vancomycin and Zosyn as patient developed a new fever and hair oxygen requirements have also increased. #History of microscopic polyangitis with granulomatosis * on chronic prednisone and hydroxychloroquine * #Hypertension;on amlodipine and carvedilol #hyperlipidemia: on statin #Fibromyalgia: on pregabalin and duloxetine. Nutrition: On tube feeding DVT prophylaxis: lovenox 40mg bid Prognosis: Guarded. Patient remains critically ill. Charges/Coding Visit Charges Inpatient E&M: 85326 Subs Hosp L3
--- NOTE | 2021-06-28 16:31 | NURSING ---
after two attempts, PICC RN unable to place PICC, stated both attempts on left arm unable to thread past the axilla.
[2021-06-28] MEDS: Propofol 10MG/Ml 1,000 MG/100 ML Bottle 13.6 MG CONT INF (19:05)
[2021-06-28] MEDS: 0.9% Saline Lock 10 ML Syringe IV (22:20)
[2021-06-28] MEDS: Amitriptyline 25 MG Tablet 50 MG GT (22:20)
[2021-06-29] VITALS (35 sets, daily range): BP systolic 87–167; BP diastolic 58–103; PULSE 63–90; RESP 12–26; TEMP 37.1–38.6; O2SAT 81–100
[2021-06-29] MEDS: CHLORHEXIDINE GLUC 2% CLOTH 1 EACH TOWELETTE TOPICAL
--- NOTE | 2021-06-29 00:10 | CPS ---
Patient had increasing oxygen needs even after suctioning was performed. Lavaging did not help during this time either. Increased oxygen to 80% and 15-20 mins to 90%. was notified and gave telephone order to increase PEEP 16. PPlateau pressure on PEEP 14 was recorded to be 25. After change to PEEP 16 PPlateau pressure was 29. [employer] TRUCK DRIVER will monitor patient for signs of crepitus or worsening respiratory status overnight. FiO2 was decreased to 80% after PEEP increased to 16.
[2021-06-29] MEDS: Propofol 10MG/Ml 1,000 MG/100 ML Bottle 13.6 MG CONT INF (03:00)
[2021-06-29 04:08] LABS: Absolute Lymphocyte Count 0.37 X10^3/uL (0.83-4.51); Absolute Neutrophil Count 10.2 X10^3/uL (2.0-7.7); Basophil# 0.03 X10^3/uL; Basophil% 0.3 % (0-1); Eosinophil# 0.07 X10^3/uL; Eosinophils% 0.6 % (0-5); Hematocrit 34.3 % (37-47); Hemoglobin 10.9 g/dL (12.0-15.0); Lymphocyte # 0.37 X10^3/ul (0.83-4.51); Lymphocyte % 3.3 % (19-41); Mean Corp Hgb Conc 31.8 g/dL (32-36); Mean Corpuscular Hgb 29.5 pg (27.0-32.0); Mean Corpuscular Volume 92.7 fL (81-99); Mean Platelet Vol. 10.8 fl (6.2-12.0); Monocyte# 0.24 X10^3/uL; Monocyte% 2.1 % (0-10); NRBC Flagged by Analyzer 0 % (0-5); Neutrophil # 10.17 X10^3/uL (2.7-7.7); Neutrophil % 90.1 % (47-70); POSITIVE DIFFERENTIAL YES; Platelet Count 206 K/mm3 (150-450); RBC Distribution Width CV 13.6 % (11.6-14.6); RBC Distribution Width SD 46.5 fl (35.1-43.9); White Blood Count 11.3 K/mm3 (4.4-11.0)
[2021-06-29 04:11] LABS: ALB/GLOB Ratio 0.4 RATIO (0.9-2.4); AST(SGOT) 22 U/L (15-37); Alanine Aminotransfer ALT/SGPT 17 U/L (13-56); Albumin, Serum 1.6 g/dL (3.2-5.0); Alkaline Phosphatase 44 U/L (45-117); Anion Gap 3 (5-15); BUN 41 mg/dL (7-18); BUN/Creat Ratio 90.5 RATIO (10-20); Calcium,Total 8.1 mg/dL (8.5-10.1); Chloride 107 mmol/L (98-107); Creatinine, Serum 0.45 mg/dL (0.55-1.02); EST Glomerular Filtration Rate 147 mL/min (>60); Est Glom Filt Rate - Afr Amer 178 mL/min (>60); Estimated Creatinine Clearance 130.25 ml/min; Globulin 3.7 g/dL (2.2-4.2); Glucose 160 mg/dL (74-106); Protein, Total 5.3 g/dL (6.4-8.2); Sodium Level 144 mmol/L (136-145)
[2021-06-29 04:24] LABS: Differential Indicated SCAN CRITERIA MET
[2021-06-29] MEDS: Vital AF 1.2 Cal Liquid 1,000 ML 55 ML GT (06:00)
[2021-06-29] MEDS: Furosemide 40 MG/4 ML Vial IV ×3 (06:05→21:51)
[2021-06-29] MEDS: TITRATION PARAMETER CHANGE 1 EACH IV (06:50)
[2021-06-29] MEDS: Acetaminophen 650 MG/20 ML UDC GT (06:50)
[2021-06-29] MEDS: Propofol 10MG/Ml 1,000 MG/100 ML Bottle 13.8 MG CONT INF ×3 (07:00→18:24)
--- NOTE | 2021-06-29 08:43 | PN.CC_ITS ---
Assessment & Plan Assessment/Plan (1) Acute respiratory failure with hypoxia: (2) COVID-19: PLAN: RECOMMENDATIONS: 1. Continue to wean FiO2 and PEEP to maintain oxygen saturations at or above 90%. 2. Transition to APRV 3. Continue antimicrobials per ID recommendations. 4. Continue Lovenox twice daily. 5. Continue PRN bronchodilator therapy. 6. Attempt gentle diuresis as tolerated by hemodynamics and renal function. 7. Continue tube feeds as tolerated. Electrolyte repletion as indicated 8. Continue appropriate GI prophylaxis. IMPRESSIONS: 1. Acute hypoxemic respiratory failure secondary to COVID-19 pneumonia The patient to date has completed a 5-day treatment course of remdesivir along with 10 days of Decadron. She remains on antimicrobials, which will be continued per ID recommendations. Despite the aforementioned interventions, the patient has not made any significant improvement from a respiratory perspective and has remained BiPAP dependent for multiple days. Given her lack of clinical improvement, the decision was made to proceed with intubation on June 25. Patient transition to APRV to help with oxygenation. Patient appears to have an apical pneumothorax on my review. This will be confirmed with radiology. Tube feeds will be continued as tolerated. Patient was positive despite Lasix 3 times a day yesterday. A second round of Decadron has also been initiated. 2. History of MPA The patient at her baseline is on prednisone and hydroxychloroquine. Patient is currently on Decadron therapy. 3. Hypertension/fibromyalgia/depression/anxiety Complicates care, management, recovery and prognosis. Continue home medications as indicated. Electrolyte repletion as indicated by labs TIME: 40 minutes of critical care time, inclusive of procedures, was spent addressing the patient's acute hypoxemic respiratory failure secondary to COVID- 19 pneumonia, review of all data, and collaboration with care team. (7:30 AM to 8:30 AM) Subjective Subjective Patient was some decompensation overnight requiring increased PEEP and FiO2. Patient had a chest x-ray overnight that was reported as increased right inf iltrates. Patient has been tolerating tube feeds, but no bowel movement has been noted. Patient did have an attempted PICC line that was unsuccessful yesterday. Objective Data Objective Data Vital Signs: Vital Signs Temp Pulse Resp BP Pulse Ox 38.4 C H 89 26 H 135/79 H 96 06/29/21 07:00 06/29/21 07:06 06/29/21 07:06 06/29/21 07:00 06/29/21 07:06 Oxygen Flow Rate (L/min) 100 Oxygen Delivery Method Mechanical Ventilator Weight: 76.8 kg Body Mass Index (BMI) 26.3 Intake & Output: Intake and Output for Last 24 Hours 06/27/21 06/28/21 06/29/21 23:59 23:59 23:59 Intake Total 4423.26 / 4967.06 4426.87 / 4872.97 1185.78 / 1185.78 Output Total 1920 / 2170 2420 / 2620 850 / 850 Balance 2503.26 / 2797.06 2006.87 / 2252.97 335.78 / 335.78 Lab / Micro Data Result Diagrams: 06/29/21 03:30 06/29/21 03:30 Labs: Laboratory Results - last 24 hr 06/29/21 03:30: WBC 11.3 H, RBC 3.70 L, Hgb 10.9 L, Hct 34.3 L, MCV 92.7, MCH 29.5, MCHC 31.8 L D, RDW Std Deviation 46.5 H, RDW Coeff of Allyssa 13.6, Plt Count 206, MPV 10.8, Immature Gran % (Auto) 3.600 H, Neut % (Auto) 90.1 H, Lymph % (Auto) 3.3 L, [place] % (Auto) 2.1, Eos % (Auto) 0.6, Baso % (Auto) 0.3, Absolute Neuts (auto) 10.2 H, Absolute Lymphs (auto) 0.37 L, Nucleated RBC % 0 06/29/21 03:30: Sodium 144, Potassium 4.0, Chloride 107, Carbon Dioxide 34.0 H, Anion Gap 3 L, BUN 41 H, Creatinine 0.45 L, Estim Creat Clear Calc 130.25, Est GFR (MDRD) Af Amer 178, Est GFR (MDRD) Non-Af 147, BUN/Creatinine Ratio 90.5 H, Glucose 160 H, Calcium 8.1 L, Total Bilirubin 0.30, AST 22, ALT 17, Alkaline Phosphatase 44 L, Total Protein 5.3 L, Albumin 1.6 L, Globulin 3.7, Albumin/Globulin Ratio 0.4 L Micro: Microbiology 06/26/21 12:55 Blood Culture (Wb) - Right Hand Blood Culture - Preliminary No growth in 48 hours. 06/26/21 12:55 Blood Culture (Wb) - Left Wrist Blood Culture - Preliminary No growth in 48 hours. 06/25/21 07:40 Sputum, Induced/Lukens Gram Stain - Final 06/25/21 07:40 Sputum, Induced/Lukens Respiratory Culture - Final Presumptive C albicans 06/15/21 14:15 Blood Culture (Wb) - Left Hand Blood Culture - Final No growth in 5 days. 06/15/21 13:43 Blood Culture (Wb) - Anticubital Left Blood Culture - Final No growth in 5 days. 06/16/21 09:43 Sputum, Expectorated/Coughed Gram Stain - Final 06/16/21 09:43 Sputum, Expectorated/Coughed Respiratory Culture - Prelim inary Possible Fungus 06/16/21 09:43 Urine, Clean Catch Streptococcus pneumoniae Antigen (M - Final 06/16/21 09:43 Urine, Clean Catch Legionella Antigen - Final Radiography Diagnostic Testing: Radiology Impression Chest X-Ray 06/28/21 00:00 IMPRESSION: Right pulmonary infiltrates are increased compared to 06/26/2021. Electronically Signed: Margarito Ny MD at 0:21 EDT Tel , Service support , Physical Exam Const oriented x3 Constitutional Narrative: RASS -3 General Appearance: cooperative, well developed, intubated and patient mechanically ventilated Neck full ROM Neck Narrative: Chest inspection of chest normal Chest: symmetrical chest wall rise; Negative for crepitus Resp normal respiratory effort and no use of accessory muscles Effort and Inspection: able to speak in complete sentences Auscultation: diminished lung sounds; Negative for rales, rhonchi or wheezes Percussion: Negative for dullness Cardio regular rate, regular rhythm, S1 normal heart sound, S2 normal heart sound, no murmurs, no rub and no gallops no CVA tenderness Extremity normal to inspection General Extremity: Negative for clubbing, cyanosis or edema Skin no rashes or lesions noted Neuro oriented x3, CN's II-XII intact bilaterally, moves all extremities and no focal motor deficits Psych cooperative and affect normal Psych Narrative: intubated, sedated. Charges/Coding Procedures Hospitalists Procedures: [id number] Critial Care 1st Hr
[2021-06-29 09:12] LABS: Base Excess 7 mmol/L (-2 to +2); Bicarbonate 31.2 mmol/L (22-26); Blood Gas Specimen Type ART; FI02 70; PO2 58 mmHG (75-100); SITE R Radial; SO2 89 % (95-99); Total Carbon Dioxide 33 mmol/L; pCO2 49.8 mmHg (35-45); pH 7.41 (7.35-7.45)
[2021-06-29] MEDS: Enoxaparin 40 MG/0.4 ML Syringe SC ×2 (11:13→21:50)
[2021-06-29] MEDS: Hydroxychloroquine 200 MG Tablet GT ×2 (11:14→21:51)
[2021-06-29] MEDS: Famotidine 20 MG Tablet GT ×2 (11:14→21:52)
[2021-06-29] MEDS: dexAMETHasone 4 MG Tablet 6 MG GT (11:14)
[2021-06-29] MEDS: Senna/Docusate Sodium 1 Tablet 2 TABLET GT ×2 (11:15→21:51)
[2021-06-29] MEDS: MILNACIPRAN HCL 50 MG TABLET GT ×2 (11:16→21:54)
[2021-06-29] MEDS: Chlorhexidine 15 ML PO ×2 (11:16→21:50)
[2021-06-29 11:35] LABS: Bedside Glucose 175 mg/dL (70-110)
[2021-06-29] MEDS: Pregabalin 75 MG Capsule 150 MG GT ×2 (13:30→21:52)
--- NOTE | 2021-06-29 15:11 | PN.HOSP_ITS ---
Subjective Subjective Respiratory status declined last night. Objective Data Objective Data Vital Signs: Vital Signs Temp Pulse Resp BP Pulse Ox 38.4 C H 86 15 135/79 H 91 06/29/21 07:00 06/29/21 13:14 06/29/21 13:14 06/29/21 07:00 06/29/21 13:14 Oxygen Flow Rate (L/min) 100 Oxygen Delivery Method Mechanical Ventilator Weight: 76.8 kg Body Mass Index (BMI) 26.3 Intake & Output: Intake and Output for Last 24 Hours 06/27/21 06/28/21 06/29/21 23:59 23:59 23:59 Intake Total 4423.26 / 4967.06 4426.87 / 4872.97 1235.78 / 1235.78 Output Total 1920 / 2170 2420 / 2620 850 / 850 Balance 2503.26 / 2797.06 2006.87 / 2252.97 385.78 / 385.78 Lab / Micro Data Result Diagrams: 06/29/21 03:30 06/29/21 03:30 Labs: Laboratory Results - last 24 hr 06/29/21 03:30: WBC 11.3 H, RBC 3.70 L, Hgb 10.9 L, Hct 34.3 L, MCV 92.7, MCH 29.5, MCHC 31.8 L D, RDW Std Deviation 46.5 H, RDW Coeff of Allyssa 13.6, Plt Count 206, MPV 10.8, Immature Gran % (Auto) 3.600 H, Neut % (Auto) 90.1 H, Lymph % (Auto) 3.3 L, [place] % (Auto) 2.1, Eos % (Auto) 0.6, Baso % (Auto) 0.3, Absolute Neuts (auto) 10.2 H, Absolute Lymphs (auto) 0.37 L, Nucleated RBC % 0 06/29/21 03:30: Sodium 144, Potassium 4.0, Chloride 107, Carbon Dioxide 34.0 H, Anion Gap 3 L, BUN 41 H, Creatinine 0.45 L, Estim Creat Clear Calc 130.25, Est GFR (MDRD) Af Amer 178, Est GFR (MDRD) Non-Af 147, BUN/Creatinine Ratio 90.5 H, Glucose 160 H, Calcium 8.1 L, Total Bilirubin 0.30, AST 22, ALT 17, Alkaline Phosphatase 44 L, Total Protein 5.3 L, Albumin 1.6 L, Globulin 3.7, Albumin/Globulin Ratio 0.4 L 06/29/21 11:11: POC Glucose 175 H Micro: Microbiology 06/26/21 12:55 Blood Culture (Wb) - Right Hand Blood Culture - Preliminary No growth in 48 hours. 06/26/21 12:55 Blood Culture (Wb) - Left Wrist Blood Culture - Preliminary No growth in 48 hours. 06/25/21 07:40 Sputum, Induced/Lukens Gram Stain - Final 06/25/21 07:40 Sputum, Induced/Lukens Respiratory Culture - Final Presumptive C albicans 06/15/21 14:15 Blood Culture (Wb) - Left Hand Blood Culture - Final No growth in 5 days. 06/15/21 13:43 Blood Culture (Wb) - Anticubital Left Blood Culture - Final No growth in 5 days. 06/16/21 09:43 Sputum, Expectorated/Coughed Gram Stain - Final 06/16/21 09:43 Sputum, Expectorated/Coughed Respiratory Culture - Preliminary Possible Fungus 06/16/21 09:43 Urine, Clean Catch Streptococcus pneumoniae Antigen (M - Final 06/16/21 09:43 Urine, Clean Catch Legionella Antigen - Final ABG Data ABG results: ABG 06/29/21 09:04 Specimen Type ART Sample Site R Radial pH 7.41 Bicarbonate Actual 31.2 H Total CO2 33 Base Excess 7 H O2 Saturation 89 L O2 % 70 ABG pCO2 49.8 H ABG pO2 58 L Clinical Comments aprv 24 Radiography Diagnostic Testing: Radiology Impression Chest X-Ray 06/28/21 00:00 IMPRESSION: Right pulmonary infiltrates are increased compared to 06/26/2021. Electronically Signed: Margarito Ny MD at 0:21 EDT Tel , Service support , ADDENDUM: 06/29/21 1024 Physical Exam Const Constitutional Narrative: intubated and sedated. opens eyes to voice. Resp normal respiratory effort, no retractions, no use of accessory muscles and clear to auscultation bilaterally Cardio regular rate, regular rhythm, S1 normal heart sound and S2 normal heart sound GI normal to inspection, nondistended, normoactive bowel sounds, soft to palpation, non-tender and non-distended Assessment & Plan Assessment/Plan (1) Acute respiratory failure with hypoxia: (2) COVID-19: (3) Microscopic polyangiitis with granulomatosis: PLAN: 1. acute hypoxic respiratory failure 2/2 COVID 19 intubated on 06/25 FiO2 80% on pip.[id number] for 2ndary infection unvaccinated. 2. COVID 19 completed remdesivir on dexamethasone for 2nd time starting 06/27 3. polyangitis with granulomatosis on hydroxychloroquine resume prednisone after taken of dexamethasone. 4. VTE prophylaxis: LMWH Charges/Coding Visit Charges Inpatient E&M: 76236 Subs Hosp L2
--- NOTE | 2021-06-29 15:42 | PCM.PN.ID ---
Physical Exam Narrative Awake on vent, feeling ok, no SOB, no abd pain Const alert General Appearance: cooperative Resp clear to auscultation bilaterally Auscultation: diminished lung sounds Cardio regular rate and regular rhythm GI normal to inspection, nondistended, normoactive bowel sounds Skin no rashes or lesions noted ID ID: Route of nutrition/ use of supplements: [] Nutritional Intake: [] IV Site: [] Solo Catheter: [] Assessment & Plan Assessment/Plan (1) Microscopic polyangiitis with granulomatosis: (2) Acute respiratory failure with hypoxia: (3) COVID-19: PLAN: Sx started around 06/07. Ok to d/c isolation. Still with fever, O2 improved, awake on vent. Cxs neg so far. will stop vanc. Cont zosyn for now. Will follow
[2021-06-29] MEDS: Amitriptyline 25 MG Tablet 50 MG GT (21:51)
[2021-06-29] MEDS: 0.9% Saline Lock 10 ML Syringe IV (21:52)
[2021-06-30] VITALS (36 sets, daily range): BP systolic 81–164; BP diastolic 56–99; PULSE 63–104; RESP 12–32; TEMP 36.8–38.2; O2SAT 86–96
[2021-06-30] MEDS: Propofol 10MG/Ml 1,000 MG/100 ML Bottle 11.5 MG CONT INF (01:39)
[2021-06-30] MEDS: CHLORHEXIDINE GLUC 2% CLOTH 1 EACH TOWELETTE TOPICAL (03:44)
[2021-06-30 04:39] LABS: Hematocrit 36.2 % (37-47); Hemoglobin 11.2 g/dL (12.0-15.0); Mean Corp Hgb Conc 30.9 g/dL (32-36); Mean Corpuscular Hgb 29.7 pg (27.0-32.0); Mean Platelet Vol. 10.8 fl (6.2-12.0); POSITIVE COUNT YES; POSITIVE DIFFERENTIAL YES; POSITIVE MORPHOLOGY YES; Platelet Count 204 K/mm3 (150-450); RBC Distribution Width CV 13.7 % (11.6-14.6); RBC Distribution Width SD 48.5 fl (35.1-43.9); Red Blood Count 3.77 M/mm3 (4.2-5.4); White Blood Count 10.4 K/mm3 (4.4-11.0)
[2021-06-30 05:05] LABS: ALB/GLOB Ratio 0.4 RATIO (0.9-2.4); AST(SGOT) 23 U/L (15-37); Alanine Aminotransfer ALT/SGPT 19 U/L (13-56); Albumin, Serum 1.4 g/dL (3.2-5.0); Alkaline Phosphatase 44 U/L (45-117); Anion Gap 6 (5-15); BUN 40 mg/dL (7-18); BUN/Creat Ratio 77.8 RATIO (10-20); Calcium,Total 7.7 mg/dL (8.5-10.1); Chloride 106 mmol/L (98-107); Creatinine, Serum 0.51 mg/dL (0.55-1.02); EST Glomerular Filtration Rate 127 mL/min (>60); Est Glom Filt Rate - Afr Amer 154 mL/min (>60); Estimated Creatinine Clearance 114.93 ml/min; Glucose 195 mg/dL (74-106); Potassium 3.6 mmol/L (3.5-5.1); Protein, Total 5.4 g/dL (6.4-8.2); Sodium Level 143 mmol/L (136-145)
[2021-06-30 05:28] LABS: Differential Indicated MANUAL DIFF
[2021-06-30 05:44] LABS: Lymphocyte 5 % (19-41); Metamyelocyte 2 % (0-1); Monocyte 2 % (0-10); Myelocyte 1 % (0-0); Neutrophil-Band 2 % (0-5); Neutrophil-Segmented 88 % (47-70); Platelet Estimate ADEQUATE (ADEQ); Total Cells Counted 100 (MANUAL DIFF)
[2021-06-30 05:45] LABS: Absolute Lymphocyte Count 0.52 X10^3/uL (0.83-4.51); Absolute Neutrophil Count 9.4 X10^3/uL (2.0-7.7); Lymphocyte # 0.52 X10^3/ul (0.83-4.51); Neutrophil # 9.38 X10^3/uL (2.7-7.7)
[2021-06-30 05:46] LABS: Red Cell Morphology NORM C+C NORMAL (NORM C&C)
[2021-06-30 06:10] LABS: Allen Test Positive; Base Excess 12 mmol/L (-2 to +2); Bicarbonate 35.4 mmol/L (22-26); Blood Gas Specimen Type ART; FI02 70; Mode BiLevel; O2 Delivery Device Adult Vent; PO2 54 mmHG (75-100); RR 12; SITE L Radial; SO2 90 % (95-99); Total Carbon Dioxide 37 mmol/L; pCO2 46.5 mmHg (35-45); pH 7.49 (7.35-7.45)
[2021-06-30] MEDS: Furosemide 40 MG/4 ML Vial IV ×3 (06:45→20:55)
[2021-06-30] MEDS: Propofol 10MG/Ml 1,000 MG/100 ML Bottle 4.6 MG CONT INF (10:30)
--- NOTE | 2021-06-30 10:34 | PN.CC_ITS ---
Assessment & Plan Assessment/Plan (1) Acute respiratory failure with hypoxia: (2) COVID-19: PLAN: RECOMMENDATIONS: 1. Continue to wean FiO2 and PEEP to maintain oxygen saturations at or above 90%. 2. Continue APRV with daily ABG to assess ventilation 3. Monitor off antimicrobials per ID recommendations. 4. Continue Lovenox twice daily. 5. Continue PRN bronchodilator therapy. 6. Attempt gentle diuresis as tolerated by hemodynamics and renal function. 7. Continue tube feeds as tolerated. Electrolyte repletion as indicated 8. Continue appropriate GI prophylaxis. IMPRESSIONS: 1. Acute hypoxemic respiratory failure secondary to COVID-19 pneumonia The patient to date has completed a 5-day treatment course of remdesivir along with 10 days of Decadron. She remains on antimicrobials, which will be continued per ID recommendations. Despite the aforementioned interventions, the patient has not made any significant improvement from a respiratory perspective and has remained BiPAP dependent for multiple days. Given her lack of clinical improvement, the decision was made to proceed with intubation on June 25. Continue APRV to help with oxygenation. Lack of apical aeration appears to be secondary to scar tissue. Tube feeds will be continued as tolerated. Continue Lasix with a goal of -500 to 1 L a day. A second round of Decadron will also be completed. 2. History of MPA The patient at her baseline is on prednisone and hydroxychloroquine. Patient is currently on Decadron therapy. 3. Hypertension/fibromyalgia/depression/anxiety Complicates care, management, recovery and prognosis. Continue home medications as indicated. Electrolyte repletion as indicated by labs TIME: 34 minutes of critical care time, inclusive of procedures, was spent addressing the patient's acute hypoxemic respiratory failure secondary to COVID- 19 pneumonia, review of all data, and collaboration with care team. (9 AM to 10 AM) Subjective Subjective Patient did okay overnight. Patient has been able to be weaned to 70% FiO2, but remains on APRV. No acute events were reported overnight. Objective Data Objective Data Vital Signs: Vital Signs Temp Pulse Resp BP Pulse Ox 37.7 C H 71 12 137/89 H 86 06/30/21 09:00 06/30/21 10:19 06/30/21 10:19 06/30/21 10:00 06/30/21 10:19 Oxygen Flow Rate (L/min) 100 Oxygen Delivery Method Mechanical Ventilator Weight: 78.2 kg Body Mass Index (BMI) 26.3 Intake & Output: Intake and Output for Last 24 Hours 06/28/21 06/29/21 06/30/21 23:59 23:59 23:59 Intake Total 4426.87 / 4872.97 2296.18 / 2419.98 462.92 / 462.92 Output Total 2420 / 2620 1900 / 2450 725 / 725 Balance 2006.87 / 2252.97 396.18 / -30.02 -262.08 / -262.08 Lab / Micro Data Result Diagrams: 06/30/21 04:25 06/30/21 04:25 Labs: Laboratory Results - last 24 hr 06/29/21 11:11: POC Glucose 175 H 06/30/21 04:25: WBC 10.4, RBC 3.77 L, Hgb 11.2 L, Hct 36.2 L, MCV 96.0, MCH 29.7, MCHC 30.9 L, RDW Std Deviation 48.5 H, RDW Coeff of Allyssa 13.7, Plt Count 204, MPV 10.8, Neut % (Auto) Not Reportable, Absolute Neuts (auto) 9.4 H, Absolute Lymphs (auto) 0.52 L, Total Counted 100, Neutrophils % (Manual) 88 H, Band Neutrophils % 2, Lymphocytes % (Manual) 5 L, Monocytes % (Manual) 2, Metamyelocytes % 2 H, Myelocytes % 1 H, Diff Path Review May foll, Platelet Estimate ADEQUATE, RBC Morphology NORM C+C 06/30/21 04:25: Sodium 143, Potassium 3.6, Chloride 106, Carbon Dioxide 31.0, Anion Gap 6, BUN 40 H, Creatinine 0.51 L, Estim Creat Clear Calc 114.93, Est GFR (MDRD) Af Amer 154, Est GFR (MDRD) Non-Af 127, BUN/Creatinine Ratio 77.8 H, Glucose 195 H, Calcium 7.7 L, Total Bilirubin 0.30, AST 23, ALT 19, Alkaline Phosphatase 44 L, Total Protein 5.4 L, Albumin 1.4 L, Globulin 4.0, Albumi n/Globulin Ratio 0.4 L Micro: Microbiology 06/26/21 12:55 Blood Culture (Wb) - Right Hand Blood Culture - Preliminary No growth in 48 hours. 06/26/21 12:55 Blood Culture (Wb) - Left Wrist Blood Culture - Preliminary No growth in 48 hours. 06/25/21 07:40 Sputum, Induced/Lukens Gram Stain - Final 06/25/21 07:40 Sputum, Induced/Lukens Respiratory Culture - Final Presumptive C albicans 06/15/21 14:15 Blood Culture (Wb) - Left Hand Blood Culture - Final No growth in 5 days. 06/15/21 13:43 Blood Culture (Wb) - Anticubital Left Blood Culture - Final No growth in 5 days. 06/16/21 09:43 Sputum, Expectorated/Coughed Gram Stain - Final 06/16/21 09:43 Sputum, Expectorated/Coughed Respiratory Culture - Preliminary Possible Fungus 06/16/21 09:43 Urine, Clean Catch Streptococcus pneumoniae Antigen (M - Final 06/16/21 09:43 Urine, Clean Catch Legionella Antigen - Final ABG Data ABG results: ABG 06/30/21 06:02 Specimen Type ART Sample Site L Radial pH 7.49 H Bicarbonate Actual 35.4 H Total CO2 37 Base Excess 12 H O2 Saturation 90 L O2 % 70 ABG pCO2 46.5 H ABG pO2 54 L Babar Test Positive Respiration Rate 12 O2 Delivery Device Adult Vent Vent Mode BiLevel Physical Exam Const oriented x3 Constitutional Narrative: RASS -2 General Appearance: cooperative, well developed, intubated and patient mechanically ventilated Neck full ROM Neck Narrative: Chest inspection of chest normal Chest: symmetrical chest wall rise; Negative for crepitus Resp normal respiratory effort and no use of accessory muscles Effort and Inspection: able to speak in complete sentences Auscultation: diminished lung sounds; Negative for rales, rhonchi or wheezes Percussion: Negative for dullness Cardio regular rate, regular rhythm, S1 normal heart sound, S2 normal heart sound, no murmurs, no rub and no gallops no CVA tenderness Extremity normal to inspection General Extremity: Negative for clubbing, cyanosis or edema Skin no rashes or lesions noted Neuro oriented x3, CN's II-XII intact bilaterally, moves all extremities and no focal motor deficits Psych cooperative and affect normal Psych Narrative: intubated, sedated. Charges/Coding Procedures Hospitalists Procedures: [id number] Critial Care 1st Hr
[2021-06-30] MEDS: Enoxaparin 40 MG/0.4 ML Syringe SC ×2 (10:57→20:42)
[2021-06-30] MEDS: Pregabalin 75 MG Capsule 150 MG GT ×2 (10:57→20:55)
[2021-06-30] MEDS: Famotidine 20 MG Tablet GT ×2 (10:57→20:41)
[2021-06-30] MEDS: Hydroxychloroquine 200 MG Tablet GT ×2 (10:57→20:41)
[2021-06-30] MEDS: MILNACIPRAN HCL 50 MG TABLET GT ×2 (10:57→20:42)
[2021-06-30] MEDS: Chlorhexidine 15 ML PO ×2 (10:57→20:42)
[2021-06-30] MEDS: dexAMETHasone 4 MG Tablet 6 MG GT (10:57)
[2021-06-30] MEDS: Polyethylene Glycol 3350 17 GM PACKET GT (10:57)
[2021-06-30] MEDS: Senna/Docusate Sodium 1 Tablet 2 TABLET GT ×2 (10:57→20:41)
[2021-06-30] MEDS: Potassium Chloride Oral Soln 20 MEQ/15 ML UDC GT ×2 (10:57→20:41)
[2021-06-30 13:09] LABS: Pathologist Review Reviewed
--- NOTE | 2021-06-30 13:40 | PCM.PN.HOSP ---
Subjective Subjective Still on vent. Worked with therapy today and was able to stand with assist Objective Data Objective Data Vital Signs: Vital Signs Temp Pulse Resp BP Pulse Ox 38.2 C H 93 20 H 164/99 H 90 06/30/21 13:00 06/30/21 13:00 06/30/21 13:00 06/30/21 13:00 06/30/21 13:00 Oxygen Flow Rate (L/min) 100 Oxygen Delivery Method Mechanical Ventilator Weight: 78.2 kg Body Mass Index (BMI) 26.3 Intake & Output: Intake and Output for Last 24 Hours 06/28/21 06/29/21 06/30/21 23:59 23:59 23:59 Intake Total 4426.87 / 4872.97 2296.18 / 2419.98 794.82 / 794.82 Output Total 2420 / 2620 1900 / 2450 1675 / 1675 Balance 2006.87 / 2252.97 396.18 / -30.02 -880.18 / -880.18 Lab / Micro Data Result Diagrams: 06/30/21 04:25 06/30/21 04:25 Labs: Laboratory Results - last 24 hr 06/30/21 04:25: WBC 10.4, RBC 3.77 L, Hgb 11.2 L, Hct 36.2 L, MCV 96.0, MCH 29.7, MCHC 30.9 L, RDW Std Deviation 48.5 H, RDW Coeff of Allyssa 13.7, Plt Count 204, MPV 10.8, Neut % (Auto) Not Reportable, Absolute Neuts (auto) 9.4 H, Absolute Lymphs (auto) 0.52 L, Total Counted 100, Neutrophils % (Manual) 88 H, Band Neutrophils % 2, Lymphocytes % (Manual) 5 L, Monocytes % (Manual) 2, Metamyelocytes % 2 H, Myelocytes % 1 H, Diff Path Review Reviewed, Platelet Estimate ADEQUATE, RBC Morphology NORM C+C 06/30/21 04:25: Sodium 143, Potassium 3.6, Chloride 106, Carbon Dioxide 31.0, Anion Gap 6, BUN 40 H, Creatinine 0.51 L, Estim Creat Clear Calc 114.93, Est GFR (MDRD) Af Amer 154, Est GFR (MDRD) Non-Af 127, BUN/Creatinine Ratio 77.8 H, Glucose 195 H, Calcium 7.7 L, Total Bilirubin 0.30, AST 23, ALT 19, Alkaline Phosphatase 44 L, Total Protein 5.4 L, Albumin 1.4 L, Globulin 4.0, Albumin/Globulin Ratio 0.4 L Micro: Microbiology 06/26/21 12:55 Blood Culture (Wb) - Right Hand Blood Culture - Preliminary No growth in 48 hours. 06/26/21 12:55 Blood Culture (Wb) - Left Wrist Blood Culture - Preliminary No growth in 48 hours. 06/25/21 07:40 Sputum, Induced/Lukens Gram Stain - Final 06/25/21 07:40 Sputum, Induced/Lukens Respiratory Culture - Final Presumptive C albicans 06/15/21 14:15 Blood Culture (Wb) - Left Hand Blood Culture - Final No growth in 5 days. 06/15/21 13:43 Blood Culture (Wb) - Anticubital Left Blood Culture - Final No growth in 5 days. 06/16/21 09:43 Sputum, Expectorated/Coughed Gram Stain - Final 06/16/21 09:43 Sputum, Expectorated/Coughed Respiratory Culture - Preliminary Possible Fungus 06/16/21 09:43 Urine, Clean Catch Streptococcus pneumoniae Antigen (M - Final 06/16/21 09:43 Urine, Clean Catch Legionella Antigen - Final ABG Data ABG results: ABG 06/30/21 06:02 Specimen Type ART Sample Site L Radial pH 7.49 H Bicarbonate Actual 35.4 H Total CO2 37 Base Excess 12 H O2 Saturation 90 L O2 % 70 ABG pCO2 46.5 H ABG pO2 54 L Babar Test Positive Respiration Rate 12 O2 Delivery Device Adult Vent Vent Mode BiLevel Physical Exam Const Constitutional Narrative: awake on vent. Stood with therapy. Sats dropped down to 70s, but climbed back up with rest. Resp no retractions Resp Narrative: coarse breath sounds bilaterally. Cardio regular rate, regular rhythm, S1 normal heart sound and S2 normal heart sound GI normal to inspection, nondistended, normoactive bowel sounds, soft to palpation, non-tender and non-distended Extremity normal to inspection Assessment & Plan Assessment/Plan (1) Acute respiratory failure with hypoxia: (2) COVID-19: (3) Microscopic polyangiitis with granulomatosis: PLAN: 1. acute hypoxic respiratory failure 2/2 COVID 19 intubated on 06/25 FiO2 70% on pip.tazo for 2ndary infection unvaccinated. Sx began 06/07, isolatation completed. 2. COVID 19 completed remdesivir on dexamethasone for 2nd time starting 06/27 3. polyangitis with granulomatosis on hydroxychloroquine resume prednisone after taken of dexamethasone. 4. VTE prophylaxis: LMWH Charges/Coding Visit Charges Inpatient E&M: 35893 Subs Hosp L2
--- NOTE | 2021-06-30 14:00 | CASEMGMT ---
EMMY participated in ICU rounds this morning. EMMY called daughter Maye Wilson to offer support. Maye reports her family has now all had COVID and she thinks she has it now too. She states she was vaccinated so is hopeful that this will help with her severity of Covid. SW offered support to Maye regarding both her own illness and the pt's. EMMY will continue to follow for support to family. BING Swartz
[2021-06-30] MEDS: Vital AF 1.2 Cal Liquid 1,000 ML 55 ML GT (14:17)
[2021-06-30] MEDS: Amitriptyline 25 MG Tablet 50 MG GT (20:42)
[2021-07-01] VITALS (34 sets, daily range): BP systolic 84–244; BP diastolic 60–124; PULSE 78–109; RESP 12–42; TEMP 36.9–38.4; O2SAT 86–94
[2021-07-01 04:11] LABS: Hemoglobin 12.3 g/dL (12.0-15.0); Mean Corp Hgb Conc 31.5 g/dL (32-36); Mean Corpuscular Hgb 29.2 pg (27.0-32.0); Mean Corpuscular Volume 92.6 fL (81-99); Mean Platelet Vol. 10.7 fl (6.2-12.0); POSITIVE COUNT YES; POSITIVE DIFFERENTIAL YES; POSITIVE MORPHOLOGY YES; Platelet Count 272 K/mm3 (150-450); RBC Distribution Width CV 13.9 % (11.6-14.6); RBC Distribution Width SD 47.2 fl (35.1-43.9); Red Blood Count 4.21 M/mm3 (4.2-5.4); White Blood Count 12.5 K/mm3 (4.4-11.0)
[2021-07-01 04:26] LABS: Differential Indicated MANUAL DIFF
[2021-07-01 04:31] LABS: Total Cells Counted 100 (MANUAL DIFF)
[2021-07-01] MEDS: Acetaminophen 650 MG/20 ML UDC GT ×2 (04:31→15:46)
[2021-07-01] MEDS: 0.9% Saline Lock 10 ML Syringe IV ×3 (04:31→21:47)
[2021-07-01 04:33] LABS: ALB/GLOB Ratio 0.4 RATIO (0.9-2.4); AST(SGOT) 25 U/L (15-37); Alanine Aminotransfer ALT/SGPT 29 U/L (13-56); Albumin, Serum 1.7 g/dL (3.2-5.0); Alkaline Phosphatase 57 U/L (45-117); Anion Gap 5 (5-15); BUN 38 mg/dL (7-18); BUN/Creat Ratio 65.7 RATIO (10-20); Calcium,Total 8.7 mg/dL (8.5-10.1); Chloride 105 mmol/L (98-107); Creatinine, Serum 0.58 mg/dL (0.55-1.02); EST Glomerular Filtration Rate 111 mL/min (>60); Est Glom Filt Rate - Afr Amer 135 mL/min (>60); Estimated Creatinine Clearance 101.06 ml/min; Globulin 4.7 g/dL (2.2-4.2); Glucose 204 mg/dL (74-106); Potassium 3.6 mmol/L (3.5-5.1); Protein, Total 6.4 g/dL (6.4-8.2); Sodium Level 146 mmol/L (136-145)
[2021-07-01 04:34] LABS: Metamyelocyte 1 % (0-1); Myelocyte 6 % (0-0); Neutrophil-Band 1 % (0-5); Neutrophil-Segmented 91 % (47-70)
[2021-07-01 04:35] LABS: Lymphocyte 1 % (19-41); Nucleated Red Bld Cells,Manual 1 % (0-5); Platelet Estimate ADEQUATE (ADEQ); Red Cell Morphology NORM C+C NORMAL (NORM C&C)
[2021-07-01 04:36] LABS: Absolute Lymphocyte Count 0.12 X10^3/uL (0.83-4.51); Absolute Neutrophil Count 11.5 X10^3/uL (2.0-7.7); Lymphocyte # 0.12 X10^3/ul (0.83-4.51); Neutrophil # 11.47 X10^3/uL (2.7-7.7)
[2021-07-01 05:25] LABS: Allen Test Positive; Base Excess 13 mmol/L (-2 to +2); Bicarbonate 35.1 mmol/L (22-26); Blood Gas Specimen Type ART; FI02 80; Mode BiLevel; O2 Delivery Device Adult Vent; PO2 47 mmHG (75-100); RR 12; SITE R Radial; SO2 87 % (95-99); Total Carbon Dioxide 36 mmol/L; pCO2 40.6 mmHg (35-45); pH 7.55 (7.35-7.45)
[2021-07-01] MEDS: LORazepam 2 MG/ML Syringe IV (05:50)
[2021-07-01] MEDS: Furosemide 40 MG/4 ML Vial IV ×3 (06:09→21:41)
[2021-07-01] MEDS: Carvedilol 6.25 MG Tablet GT (06:14)
[2021-07-01] MEDS: amLODIPine 2.5 MG Tablet GT (06:14)
[2021-07-01] MEDS: QUEtiapine 100 MG Tablet GT ×2 (06:14→21:41)
[2021-07-01] MEDS: Propofol 10MG/Ml 1,000 MG/100 ML Bottle 6.9 MG CONT INF (06:20)
--- NOTE | 2021-07-01 08:12 | PN.CC_ITS ---
Assessment & Plan Assessment/Plan (1) Acute respiratory failure with hypoxia: (2) COVID-19: PLAN: RECOMMENDATIONS: 1. Continue to wean FiO2 and PEEP to maintain oxygen saturations at or above 90%. 2. Continue APRV with daily ABG to assess ventilation 3. Monitor off antimicrobials per ID recommendations. 4. Continue Lovenox twice daily. 5. Continue PRN bronchodilator therapy. Add Seroquel to help with vent synchrony. One-time Ativan dose given 6. Continue diuresis as tolerated by hemodynamics and renal function. 7. Continue tube feeds as tolerated. Electrolyte repletion as indicated 8. Continue appropriate GI prophylaxis. 9. Reinitiate baseline antihypertensive medications IMPRESSIONS: 1. Acute hypoxemic respiratory failure secondary to COVID-19 pneumonia The patient to date has completed a 5-day treatment course of remdesivir along with 10 days of Decadron. She remains on antimicrobials, which will be continued per ID recommendations. Despite the aforementioned interventions, the patient has not made any significant improvement from a respiratory perspective and has remained BiPAP dependent for multiple days. Given her lack of clinical improvement, the decision was made to proceed with intubation on June 25. Continue APRV to help with oxygenation. Lack of apical aeration appears to be secondary to scar tissue. Ativan given for desaturation. We will add Seroquel as a long-term solution. Tube feeds will be continued as tolerated. Continue Lasix with a goal of -500 to 1 L a day. A second round of Decadron will also be completed. 2. History of MPA The patient at her baseline is on prednisone and hydroxychloroquine. Patient is currently on Decadron therapy. 3. Hypertension/fibromyalgia/depression/anxiety Complicates care, management, recovery and prognosis. Continue home medications as indicated. Electrolyte repletion as indicated by labs. Patient's blood pressure appears to be significantly elevated. Home medications will be reinitiated. TIME: 35 minutes of critical care time, inclusive of procedures, was spent addressing the patient's acute hypoxemic respiratory failure secondary to COVID- 19 pneumonia, review of all data, and collaboration with care team. (9 AM to 10 AM) Subjective Subjective Patient did okay overnight. No acute issues were reported outside of significant hypertension this morning. Patient had swelling of her left upper extremity. Blood pressure cuff was moved to the leg and found to have significant hypertension. Patient did have an episode of desaturation associated with vent dyssynchrony. Objective Data Objective Data Vital Signs: Vital Signs Temp Pulse Resp BP Pulse Ox 38.3 C H 97 19 H 243/124 H 90 07/01/21 05:00 07/01/21 07:07 07/01/21 07:07 07/01/21 05:00 07/01/21 07:07 Oxygen Flow Rate (L/min) 100 Oxygen Delivery Method Mechanical Ventilator Weight: 75.9 kg Body Mass Index (BMI) 26.3 Intake & Output: Intake and Output for Last 24 Hours 06/29/21 06/30/21 07/01/21 23:59 23:59 23:59 Intake Total 2296.18 / 2419.98 1450.64 / 1562.74 1197.3 / 1197.3 Output Total 1900 / 2450 3225 / 4025 1100 / 1100 Balance 396.18 / -30.02 -1774.36 / -2462.26 97.3 / 97.3 Lab / Micro Data Result Diagrams: 07/01/21 03:45 07/01/21 03:45 Labs: Laboratory Results - last 24 hr 06/30/21 04:25: Diff Path Review Reviewed 07/01/21 03:45: WBC 12.5 H, RBC 4.21, Hgb 12.3, Hct 39.0, MCV 92.6, MCH 29.2, MCHC 31.5 L, RDW Std Deviation 47.2 H, RDW Coeff of Allyssa 13.9, Plt Count 272, MPV 10.7, Neut % (Auto) Not Reportable, Absolute Neuts (auto) 11.5 H, Absolute Lymphs (auto) 0.12 L, Total Counted 100, Neutrophils % (Manual) 91 H, Band Neutrophils % 1, Lymphocytes % (Manual) 1 L, Metamyelocytes % 1, Myelocytes % 6 H, Nucleated RBCs/100 WBC 1, Diff Path Review May , Platelet Estimate ADEQUATE, RBC Morphology NORM C+C 07/01/21 03:45: Sodium 146 H, Potassium 3.6, Chloride 105, Carbon Dioxide 36.0 H , Anion Gap 5, BUN 38 H, Creatinine 0.58, Estim Creat Clear Calc 101.06, Est GFR (MDRD) Af Amer 135, Est GFR (MDRD) Non-Af 111, BUN/Creatinine Ratio 65.7 H, Glucose 204 H, Calcium 8.7, Total Bilirubin 0.40, AST 25, ALT 29, Alkaline Phosphatase 57, Total Protein 6.4, Albumin 1.7 L, Globulin 4.7 H, Albumin/Globulin Ratio 0.4 L Micro: Microbiology 06/26/21 12:55 Blood Culture (Wb) - Right Hand Blood Culture - Preliminary No growth in 48 hours. 06/26/21 12:55 Blood Culture (Wb) - Left Wrist Blood Culture - Preliminary No growth in 48 hours. 06/25/21 07:40 Sputum, Induced/Lukens Gram Stain - Final 06/25/21 07:40 Sputum, Induced/Lukens Respiratory Culture - Final Presumptive C albicans 06/15/21 14:15 Blood Culture (Wb) - Left Hand Blood Culture - Final No growth in 5 days. 06/15/21 13:43 Blood Culture (Wb) - Anticubital Left Blood Culture - Final No growth in 5 days. 06/16/21 09:43 Sputum, Expectorated/Coughed Gram Stain - Final 06/16/21 09:43 Sputum, Expectorated/Coughed Respiratory Culture - Preliminary Possible Fungus 06/16/21 09:43 Urine, Clean Catch Streptococcus pneumoniae Antigen (M - Final 06/16/21 09:43 Urine, Clean Catch Legionella Antigen - Final ABG Data ABG results: ABG 07/01/21 05:18 Specimen Type ART Sample Site R Radial pH 7.55 H Bicarbonate Actual 35.1 H Total CO2 36 Base Excess 13 H O2 Saturation 87 L O2 % 80 ABG pCO2 40.6 ABG pO2 47 L Babar Test Positive Respiration Rate 12 O2 Delivery Device Adult Vent Vent Mode BiLevel Clinical Comments Physical Exam Const oriented x3 Constitutional Narrative: RASS -2 to +2 General Appearance: cooperative, well developed, intubated and patient mechanically ventilated Neck full ROM Neck Narrative: Chest inspection of chest normal Chest: symmetrical chest wall rise; Negative for crepitus Resp normal respiratory effort and no use of accessory muscles Effort and Inspection: able to speak in complete sentences Auscultation: diminished lung sounds; Negative for rales, rhonchi or wheezes Percussion: Negative for dullness Cardio regular rate, regular rhythm, S1 normal heart sound, S2 normal heart sound, no murmurs, no rub and no gallops no CVA tenderness Extremity normal to inspection General Extremity: Negative for clubbing, cyanosis or edema Skin no rashes or lesions noted Neuro oriented x3, CN's II-XII intact bilaterally, moves all extremities and no focal motor deficits Psych cooperative and affect normal Psych Narrative: intubated, sedated. Charges/Coding Procedures Hospitalists Procedures: [id number] Critial Care 1st Hr
[2021-07-01] MEDS: Potassium Chloride Oral Soln 20 MEQ/15 ML UDC 40 MEQ PO ×2 (08:38→18:23)
[2021-07-01] MEDS: dexAMETHasone 4 MG Tablet 6 MG GT (08:40)
[2021-07-01] MEDS: Enoxaparin 40 MG/0.4 ML Syringe SC ×2 (08:40→21:41)
[2021-07-01] MEDS: Polyethylene Glycol 3350 17 GM PACKET GT (08:41)
[2021-07-01] MEDS: Famotidine 20 MG Tablet GT ×2 (08:41→21:41)
[2021-07-01] MEDS: Hydroxychloroquine 200 MG Tablet GT ×2 (08:42→21:41)
[2021-07-01] MEDS: Senna/Docusate Sodium 1 Tablet 2 TABLET GT ×2 (08:44→21:41)
[2021-07-01] MEDS: MILNACIPRAN HCL 50 MG TABLET GT ×2 (08:47→21:41)
[2021-07-01] MEDS: Pregabalin 75 MG Capsule 150 MG GT ×2 (08:48→21:47)
[2021-07-01] MEDS: Vital AF 1.2 Cal Liquid 1,000 ML 55 ML GT (08:50)
[2021-07-01] MEDS: CHLORHEXIDINE GLUC 2% CLOTH 1 EACH TOWELETTE TOPICAL (10:03)
[2021-07-01] MEDS: Insulin Lispro 100 UNIT/ML INSULN.PEN SC ×2 (13:40→18:22)
[2021-07-01 13:42] LABS: Pathologist Review Reviewed
--- NOTE | 2021-07-01 13:42 | PN.HOSP_ITS ---
Subjective Subjective Still on vent. Objective Data Objective Data Vital Signs: Vital Signs Temp Pulse Resp BP Pulse Ox 37.2 C 78 20 H 89/65 L 94 07/01/21 10:00 07/01/21 10:40 07/01/21 10:40 07/01/21 10:00 07/01/21 12:05 Oxygen Flow Rate (L/min) 100 Oxygen Delivery Method Mechanical Ventilator Weight: 75.9 kg Body Mass Index (BMI) 26.3 Intake & Output: Intake and Output for Last 24 Hours 06/29/21 06/30/21 07/01/21 23:59 23:59 23:59 Intake Total 2296.18 / 2419.98 1450.64 / 1562.74 1567.3 / 1567.3 Output Total 1900 / 2450 3225 / 4025 1100 / 1100 Balance 396.18 / -30.02 -1774.36 / -2462.26 467.3 / 467.3 Lab / Micro Data Result Diagrams: 07/01/21 03:45 07/01/21 03:45 Labs: Laboratory Results - last 24 hr 07/01/21 03:45: WBC 12.5 H, RBC 4.21, Hgb 12.3, Hct 39.0, MCV 92.6, MCH 29.2, MCHC 31.5 L, RDW Std Deviation 47.2 H, RDW Coeff of Allyssa 13.9, Plt Count 272, MPV 10.7, Neut % (Auto) Not Reportable, Absolute Neuts (auto) 11.5 H, Absolute Lymphs (auto) 0.12 L, Total Counted 100, Neutrophils % (Manual) 91 H, Band Neutrophils % 1, Lymphocytes % (Manual) 1 L, Metamyelocytes % 1, Myelocytes % 6 H, Nucleated RBCs/100 WBC 1, Diff Path Review February, Platelet Estimate ADEQUATE, RBC Morphology NORM C+C 07/01/21 03:45: Sodium 146 H, Potassium 3.6, Chloride 105, Carbon Dioxide 36.0 H , Anion Gap 5, BUN 38 H, Creatinine 0.58, Estim Creat Clear Calc 101.06, Est GFR (MDRD) Af Amer 135, Est GFR (MDRD) Non-Af 111, BUN/Creatinine Ratio 65.7 H, Glucose 204 H, Calcium 8.7, Total Bilirubin 0.40, AST 25, ALT 29, Alkaline Phosphatase 57, Total Protein 6.4, Albumin 1.7 L, Globulin 4.7 H, Albumin/Globulin Ratio 0.4 L Micro: Microbiology 06/26/21 12:55 Blood Culture (Wb) - Right Hand Blood Culture - Preliminary No growth in 48 hours. 06/26/21 12:55 Blood Culture (Wb) - Left Wrist Blood Culture - Preliminary No growth in 48 hours. 06/25/21 07:40 Sputum, Induced/Lukens Gram Stain - Final 06/25/21 07:40 Sputum, Induced/Lukens Respiratory Culture - Final Presumptive C albicans 06/15/21 14:15 Blood Culture (Wb) - Left Hand Blood Culture - Final No growth in 5 days. 06/15/21 13:43 Blood Culture (Wb) - Anticubital Left Blood Culture - Final No growth in 5 days. 06/16/21 09:43 Sputum, Expectorated/Coughed Gram Stain - Final 06/16/21 09:43 Sputum, Expectorated/Coughed Respiratory Culture - Preli minary Possible Fungus 06/16/21 09:43 Urine, Clean Catch Streptococcus pneumoniae Antigen (M - Final 06/16/21 09:43 Urine, Clean Catch Legionella Antigen - Final ABG Data ABG results: ABG 07/01/21 05:18 Specimen Type ART Sample Site R Radial pH 7.55 H Bicarbonate Actual 35.1 H Total CO2 36 Base Excess 13 H O2 Saturation 87 L O2 % 80 ABG pCO2 40.6 ABG pO2 47 L Babar Test Positive Respiration Rate 12 O2 Delivery Device Adult Vent Vent Mode BiLevel Clinical Comments Physical Exam Const Constitutional Narrative: intubated and sedated. Resp normal respiratory effort, no retractions, no use of accessory muscles and clear to auscultation bilaterally Cardio regular rate, regular rhythm, S1 normal heart sound and S2 normal heart sound GI normal to inspection, nondistended, normoactive bowel sounds, soft to palpation, non-tender and non-distended Assessment & Plan Assessment/Plan (1) Acute respiratory failure with hypoxia: (2) COVID-19: (3) Microscopic polyangiitis with granulomatosis: PLAN: 1. acute hypoxic respiratory failure 2/2 COVID 19 intubated on 06/25 FiO2 70% on pip.tazo for 2ndary infection unvaccinated. Sx began 06/07, isolatation completed. 2. COVID 19 completed remdesivir on dexamethasone for 2nd time starting 06/27 3. polyangitis with granulomatosis on hydroxychloroquine resume prednisone after completion of dexamethasone. 4. VTE prophylaxis: LMWH Charges/Coding Visit Charges Inpatient E&M: 73166 Subs Hosp L2
[2021-07-01 13:51] LABS: Bedside Glucose 316 mg/dL (70-110)
--- NOTE | 2021-07-01 14:17 | RAD_ITS ---
STUDY: X-RAY CHEST REASON FOR EXAM: Female, 66 years old. New crepitus TECHNIQUE: 2 AP portable views COMPARISON: 06/28/2021 FINDINGS: EKG leads overlie the chest. Stable appearance of the ET and NG tubes. Persistent diffuse alveolar opacifications in both lung cardenas essentially unchanged from the previous study. Stable nonspecific pleural thickening in the apices right greater than left. There is now evidence of subcutaneous emphysema over the right chest and neck not seen on the previous study. Small amount of pneumomediastinum also noted. Normal size heart. Normal mediastinum and mariel. Normal visualized pulmonary arteries. Normal visualized aortic arch and descending thoracic aorta. There are diffuse degenerative changes of the visualized thoracic spine. Normal visualized ribs, clavicles, and shoulders. There is no demonstrated abnormality of the visualized soft tissue structures of the upper abdomen. RAD/Chest 1 View (Portable) IMPRESSION: New subcutaneous emphysema and pneumomediastinum since the previous study Stable appearance of the support lines and tubes Persistent diffuse opacification throughout both lung cardenas with stable nonspecific pleural thickening in the apices Electronically Signed: Frantz Shepherd MD at 16:43 EDT , Service support ,
--- NOTE | 2021-07-01 14:19 | CASEMGMT ---
TAMRA OCAMPO NOTE: ? Pt qualifies for a Palliative referral per the [facility] palliative screening tool at this time. ?? ? Gale aware but is not agreeable to Palliative referral at this time. ? Uziel GUTIÉRREZ RN, CM ?
[2021-07-01] MEDS: hydrALAZINE 20 MG/ML Vial 10 MG IV (16:30)
[2021-07-01 16:33] LABS: Phosphorus 2.2 mg/dL (2.5-4.9)
--- NOTE | 2021-07-01 17:40 | CHAPLAIN ---
Type of Pastoral Visit ___ Initial Visit ___ Follow-up Visit ___ On-call Visit ___ General Patient Visit ___ Spiritual Assessment ___ Family Conference ___ Bereavement ___ Rapid Response ___ Code Blue _x__ Other (describe below) Pastoral Care Referral From ___ Patient _x__ Family _x__ Nurse ___ Physician ___ J2Ee Consultant ___ Incubator Tender ___ Other (describe below) Sacrament/Intervention _x__ Active listening ___ Anointing ___ Religion ___ Bereavement ___ Communion ___ Zaina exploration ___ ___ Life review _x__ Prayer ___ Reconciliation _x__ Sacrament of Sick ___ Supportive presence ___ Wedding ___ Other (describe below) Pastoral Comments patient is in decline and spouse requests Anointing of the Sick; this regulator pin inserter called cylinder dyer and was present for the same in the sacrament; met with family members to give support and presence; communicated with staff members
[2021-07-01] MEDS: Propofol 10MG/Ml 1,000 MG/100 ML Bottle 9.2 MG CONT INF (18:31)
[2021-07-01 18:36] LABS: Bedside Glucose 324 mg/dL (70-110)
--- NOTE | 2021-07-01 19:19 | PCM.PN.ID ---
Physical Exam Narrative On vent. Still fever. Const no apparent distress Resp Effort and Inspection: mechanically ventilated Auscultation: diminished lung sounds Cardio regular rate and regular rhythm GI normal to inspection, nondistended, normoactive bowel sounds Skin no rashes or lesions noted ID ID: Route of nutrition/ use of supplements: [] Nutritional Intake: [] IV Site: [] Solo Catheter: [] Assessment & Plan Assessment/Plan (1) Microscopic polyangiitis with granulomatosis: (2) Acute respiratory failure with hypoxia: (3) COVID-19: PLAN: Sx started around 06/07. Out of isolation. Still with fever, on vent. Cxs neg so far. Will stop zosyn. Will follow
[2021-07-01] MEDS: Amitriptyline 25 MG Tablet 50 MG GT (21:42)
[2021-07-01] MEDS: Carvedilol 12.5 MG Tablet GT (21:42)
[2021-07-02] VITALS (40 sets, daily range): BP systolic 89–180; BP diastolic 63–125; PULSE 71–179; RESP 12–39; TEMP 36.5–38.7; O2SAT 88–96
[2021-07-02] MEDS: Insulin Lispro 100 UNIT/ML INSULN.PEN SC ×4 (00:11→19:51)
[2021-07-02 00:31] LABS: Bedside Glucose 209 mg/dL (70-110)
[2021-07-02] MEDS: Vital AF 1.2 Cal Liquid 1,000 ML 55 ML GT (04:53)
[2021-07-02] MEDS: Acetaminophen 650 MG/20 ML UDC GT (04:53)
[2021-07-02] MEDS: Propofol 10MG/Ml 1,000 MG/100 ML Bottle 9.2 MG CONT INF ×2 (04:57→16:00)
[2021-07-02 05:07] LABS: Absolute Lymphocyte Count 0.45 X10^3/uL (0.83-4.51); Absolute Neutrophil Count 10.2 X10^3/uL (2.0-7.7); Basophil# 0.06 X10^3/uL; Basophil% 0.5 % (0-1); Eosinophils% 0.9 % (0-5); Hematocrit 36.8 % (37-47); Hemoglobin 11.3 g/dL (12.0-15.0); Lymphocyte # 0.45 X10^3/ul (0.83-4.51); Lymphocyte % 3.9 % (19-41); Mean Corp Hgb Conc 30.7 g/dL (32-36); Mean Corpuscular Hgb 28.8 pg (27.0-32.0); Mean Corpuscular Volume 93.6 fL (81-99); Mean Platelet Vol. 10.8 fl (6.2-12.0); Monocyte# 0.23 X10^3/uL; NRBC Flagged by Analyzer 0.2 % (0-5); Neutrophil # 10.15 X10^3/uL (2.7-7.7); Neutrophil % 87.9 % (47-70); POSITIVE DIFFERENTIAL YES; Platelet Count 256 K/mm3 (150-450); RBC Distribution Width SD 48.3 fl (35.1-43.9); Red Blood Count 3.93 M/mm3 (4.2-5.4); White Blood Count 11.6 K/mm3 (4.4-11.0)
[2021-07-02 05:24] LABS: ALB/GLOB Ratio 0.4 RATIO (0.9-2.4); AST(SGOT) 21 U/L (15-37); Alanine Aminotransfer ALT/SGPT 37 U/L (13-56); Albumin, Serum 1.5 g/dL (3.2-5.0); Alkaline Phosphatase 53 U/L (45-117); Anion Gap 2 (5-15); BUN 48 mg/dL (7-18); BUN/Creat Ratio 60.9 RATIO (10-20); Calcium,Total 8.8 mg/dL (8.5-10.1); Chloride 107 mmol/L (98-107); Creatinine, Serum 0.79 mg/dL (0.55-1.02); EST Glomerular Filtration Rate 78 mL/min (>60); Est Glom Filt Rate - Afr Amer 94 mL/min (>60); Globulin 4.2 g/dL (2.2-4.2); Glucose 177 mg/dL (74-106); Potassium 3.6 mmol/L (3.5-5.1); Protein, Total 5.7 g/dL (6.4-8.2); Sodium Level 147 mmol/L (136-145)
[2021-07-02 05:25] LABS: Base Excess 13 mmol/L (-2 to +2); Bicarbonate 35.7 mmol/L (22-26); Blood Gas Specimen Type ART; FI02 75; Mode APRV; O2 Delivery Device Adult Vent; PO2 53 mmHG (75-100); RR 12; SITE L Radial; SO2 90 % (95-99); Total Carbon Dioxide 37 mmol/L; pCO2 43.6 mmHg (35-45); pH 7.52 (7.35-7.45)
[2021-07-02 05:29] LABS: Differential Indicated SCAN CRITERIA MET
[2021-07-02 05:42] LABS: CPK Total, Creatine Kinase 21 U/L (26-192); Triglycerides 220 mg/dL
[2021-07-02] MEDS: Furosemide 40 MG/4 ML Vial IV ×3 (06:00→21:10)
[2021-07-02 06:36] LABS: Differential Comment SCANNED
--- NOTE | 2021-07-02 08:25 | PN.CC_ITS ---
Assessment & Plan Assessment/Plan (1) Acute respiratory failure with hypoxia: (2) COVID-19: PLAN: RECOMMENDATIONS: 1. Continue to wean FiO2 and PEEP to maintain oxygen saturations at or above 90%. 2. Continue APRV with daily ABG to assess ventilation. Increase T high 3. Monitor off antimicrobials per ID recommendations. 4. Continue Lovenox twice daily. 5. Continue PRN bronchodilator therapy. Continue Seroquel to help with vent synchrony. 6. Continue diuresis as tolerated by hemodynamics and renal function. 7. Continue tube feeds as tolerated. Electrolyte repletion as indicated 8. Continue appropriate GI prophylaxis. 9. Continue baseline antihypertensive medications, aggressive pain control IMPRESSIONS: 1. Acute hypoxemic respiratory failure secondary to COVID-19 pneumonia The patient to date has completed a 5-day treatment course of remdesivir along with 10 days of Decadron. She remains on antimicrobials, which will be continued per ID recommendations. Despite the aforementioned interventions, the patient has not made any significant improvement from a respiratory perspective and has remained BiPAP dependent for multiple days. Given her lack of clinical improvement, the decision was made to proceed with intubation on June 25. Continue APRV to help with oxygenation. Will attempt to wean P high as tolerated given pneumomediastinum. Lack of apical aeration appears to be secondary to scar tissue. We will continue Seroquel. Tube feeds will be continued as tolerated. Continue Lasix with a goal of -500 to 1 L a day. A second round of Decadron will also be completed. 2. History of MPA The patient at her baseline is on prednisone and hydroxychloroquine. Patient is currently on Decadron therapy. 3. Hypertension/fibromyalgia/depression/anxiety Complicates care, management, recovery and prognosis. Continue home med ications as indicated. Electrolyte repletion as indicated by labs. Patient's blood pressure appears to be significantly elevated. Home medications will be reinitiated. TIME: 32 minutes of critical care time, inclusive of procedures, was spent addressing the patient's acute hypoxemic respiratory failure secondary to COVID- 19 pneumonia, review of all data, and collaboration with care team. (7 AM to 8 AM) Subjective Subjective Patient did okay overnight. Patient did have significant hypertension, but this responded to fentanyl. Patient did have a fever, but no hemodynamic in stability. Patient remains on APRV, but P high has been weaned to 22. Objective Data Objective Data Vital Signs: Vital Signs Temp Pulse Resp BP Pulse Ox 38.6 C H 83 16 125/90 H 89 07/02/21 06:00 07/02/21 07:01 07/02/21 07:01 07/02/21 06:00 07/02/21 07:01 Oxygen Flow Rate (L/min) 100 Oxygen Delivery Method Mechanical Ventilator Weight: 75.5 kg Body Mass Index (BMI) 26.3 Intake & Output: Intake and Output for Last 24 Hours 06/30/21 07/01/21 07/02/21 23:59 23:59 23:59 Intake Total 1450.64 / 1562.74 2838.07 / 2859.77 978.20 / 978.20 Output Total 3225 / 4025 2550 / 2550 550 / 550 Balance -1774.36 / -2462.26 288.07 / 309.77 428.20 / 428.20 Lab / Micro Data Result Diagrams: 07/02/21 04:50 07/02/21 04:50 Labs: Laboratory Results - last 24 hr 07/01/21 03:45: Diff Path Review Reviewed 07/01/21 13:35: POC Glucose 316 H 07/01/21 15:50: Phosphorus 2.2 L, Magnesium 2.0 07/01/21 18:22: POC Glucose 324 H 07/02/21 00:26: POC Glucose 209 H 07/02/21 04:50: WBC 11.6 H, RBC 3.93 L, Hgb 11.3 L, Hct 36.8 L, MCV 93.6, MCH 28.8, MCHC 30.7 L, RDW Std Deviation 48.3 H, RDW Coeff of Allyssa 14.0, Plt Count 256, MPV 10.8, Immature Gran % (Auto) 4.800 H, Neut % (Auto) 87.9 H, Lymph % (Auto) 3.9 L, [place] % (Auto) 2.0, Eos % (Auto) 0.9, Baso % (Auto) 0.5, Absolute Neuts (auto) 10.2 H, Absolute Lymphs (auto) 0.45 L, Nucleated RBC % 0.2, Dif ferential Comment SCANNED 07/02/21 04:50: Sodium 147 H, Potassium 3.6, Chloride 107, Carbon Dioxide 38.0 H , Anion Gap 2 L, BUN 48 H, Creatinine 0.79, Estim Creat Clear Calc 74.20, Est G FR (MDRD) Af Amer 94, Est GFR (MDRD) Non-Af 78, BUN/Creatinine Ratio 60.9 H, Glucose 177 H, Calcium 8.8, Total Bilirubin 0.40, AST 21, ALT 37, Alkaline Ph osphatase 53, Total Protein 5.7 L, Albumin 1.5 L, Globulin 4.2, Albumin/Globulin Ratio 0.4 L 07/02/21 04:50: Total Creatine Kinase 21 L, Triglycerides 220 H Micro: Microbiology 06/26/21 12:55 Blood Culture (Wb) - Right Hand Blood Culture - Final No growth in 5 days. 06/26/21 12:55 Blood Culture (Wb) - Left Wrist Blood Culture - Final No growth in 5 days. 06/25/21 07:40 Sputum, Induced/Lukens Gram Stain - Final 06/25/21 07:40 Sputum, Induced/Lukens Respiratory Culture - Final Presumptive C albicans 06/15/21 14:15 Blood Culture (Wb) - Left Hand Blood Culture - Final No growth in 5 days. 06/15/21 13:43 Blood Culture (Wb) - Anticubital Left Blood Culture - Final No growth in 5 days. 06/16/21 09:43 Sputum, Expectorated/Coughed Gram Stain - Final 06/16/21 09:43 Sputum, Expectorated/Coughed Respiratory Culture - Prelimin juan Possible Fungus 06/16/21 09:43 Urine, Clean Catch Streptococcus pneumoniae Antigen (M - Final 06/16/21 09:43 Urine, Clean Catch Legionella Antigen - Final ABG Data ABG results: ABG 07/02/21 05:21 Specimen Type ART Sample Site L Radial pH 7.52 H Bicarbonate Actual 35.7 H Total CO2 37 Base Excess 13 H O2 Saturation 90 L O2 % 75 ABG pCO2 43.6 ABG pO2 53 L Babar Test N/A Respiration Rate 12 O2 Delivery Device Adult Vent Vent Mode APRV Clinical Comments PHIGH22 THIGH4.5 Radiography Diagnostic Testing: Radiology Impression Chest X-Ray 07/01/21 14:17 IMPRESSION: New subcutaneous emphysema and pneumomediastinum since the previous study Stable appearance of the support lines and tubes Persistent diffuse opacification throughout both lung cardenas with stable nonspecific pleural thickening in the apices Electronically Signed: Frantz Shepherd MD at 16:43 EDT , Service support , Physical Exam Const oriented x3 Constitutional Narrative: RASS -2 to +2 General Appearance: cooperative, well developed, intubated and patient mechanically ventilated Neck full ROM Neck Narrative: Chest inspection of chest normal Chest: symmetrical chest wall rise and crepitus clavicle right (With extension into the neck) and sternum Resp normal respiratory effort and no use of accessory muscles Effort and Inspection: able to speak in complete sentences Auscultation: diminished lung sounds; Negative for rales, rhonchi or wheezes Percussion: Negative for dullness Cardio regular rate, regular rhythm, S1 normal heart sound, S2 normal heart sound, no murmurs, no rub and no gallops GI normal to inspection, nondistended, normoactive bowel sounds no CVA tenderness Extremity normal to inspection General Extremity: Negative for clubbing, cyanosis or edema Skin no rashes or lesions noted Neuro oriented x3, CN's II-XII intact bilaterally, moves all extremities and no focal motor deficits Psych cooperative and affect normal Psych Narrative: intubated, sedated. Charges/Coding Procedures Hospitalists Procedures: 15583 Critial Care 1st Hr
[2021-07-02] MEDS: Potassium Chloride Oral Soln 20 MEQ/15 ML UDC 40 MEQ PO ×2 (08:26→16:27)
[2021-07-02] MEDS: dexAMETHasone 4 MG Tablet 6 MG GT (08:27)
[2021-07-02] MEDS: Polyethylene Glycol 3350 17 GM PACKET GT (08:28)
[2021-07-02] MEDS: Enoxaparin 40 MG/0.4 ML Syringe SC ×2 (08:28→21:06)
[2021-07-02] MEDS: Famotidine 20 MG Tablet GT ×2 (08:28→21:07)
[2021-07-02] MEDS: QUEtiapine 100 MG Tablet GT ×2 (08:29→21:06)
[2021-07-02] MEDS: Hydroxychloroquine 200 MG Tablet GT ×2 (08:29→21:06)
[2021-07-02] MEDS: MILNACIPRAN HCL 50 MG TABLET GT ×2 (08:29→21:09)
[2021-07-02] MEDS: Senna/Docusate Sodium 1 Tablet 2 TABLET GT ×2 (08:29→21:08)
[2021-07-02] MEDS: Carvedilol 12.5 MG Tablet GT ×2 (08:34→21:07)
[2021-07-02] MEDS: Pregabalin 75 MG Capsule 150 MG GT ×2 (08:34→21:12)
[2021-07-02 11:41] LABS: Bedside Glucose 278 mg/dL (70-110)
[2021-07-02] MEDS: amLODIPine 10 MG Tablet GT (12:06)
[2021-07-02] MEDS: CHLORHEXIDINE GLUC 2% CLOTH 1 EACH TOWELETTE TOPICAL (12:06)
--- NOTE | 2021-07-02 12:28 | PN.HOSP_ITS ---
Subjective Subjective increased FiO2. Objective Data Objective Data Vital Signs: Vital Signs Temp Pulse Resp BP Pulse Ox 38.6 C H 91 32 H 125/90 H 93 07/02/21 06:00 07/02/21 10:15 07/02/21 10:15 07/02/21 06:00 07/02/21 10:15 Oxygen Flow Rate (L/min) 100 Oxygen Delivery Method Mechanical Ventilator Weight: 75.5 kg Body Mass Index (BMI) 26.3 Intake & Output: Intake and Output for Last 24 Hours 06/30/21 07/01/21 07/02/21 23:59 23:59 23:59 Intake Total 1450.64 / 1562.74 2838.07 / 2859.77 1345.80 / 1345.80 Output Total 3225 / 4025 2550 / 2550 550 / 550 Balance -1774.36 / -2462.26 288.07 / 309.77 795.80 / 795.80 Lab / Micro Data Result Diagrams: 07/02/21 04:50 07/02/21 04:50 Labs: Laboratory Results - last 24 hr 07/01/21 03:45: Diff Path Review Reviewed 07/01/21 13:35: POC Glucose 316 H 07/01/21 15:50: Phosphorus 2.2 L, Magnesium 2.0 07/01/21 18:22: POC Glucose 324 H 07/02/21 00:26: POC Glucose 209 H 07/02/21 04:50: WBC 11.6 H, RBC 3.93 L, Hgb 11.3 L, Hct 36.8 L, MCV 93.6, MCH 28.8, MCHC 30.7 L, RDW Std Deviation 48.3 H, RDW Coeff of Allyssa 14.0, Plt Count 256, MPV 10.8, Immature Gran % (Auto) 4.800 H, Neut % (Auto) 87.9 H, Lymph % (Auto) 3.9 L, [place] % (Auto) 2.0, Eos % (Auto) 0.9, Baso % (Auto) 0.5, Absolute Neuts (auto) 10.2 H, Absolute Lymphs (auto) 0.45 L, Nucleated RBC % 0.2, Differential Comment SCANNED 07/02/21 04:50: Sodium 147 H, Potassium 3.6, Chloride 107, Carbon Dioxide 38.0 H , Anion Gap 2 L, BUN 48 H, Creatinine 0.79, Estim Creat Clear Calc 74.20, Est GFR (MDRD) Af Amer 94, Est GFR (MDRD) Non-Af 78, BUN/Creatinine Ratio 60.9 H, Glucose 177 H, Calcium 8.8, Total Bilirubin 0.40, AST 21, ALT 37, Alkaline Phosphatase 53, Total Protein 5.7 L, Albumin 1.5 L, Globulin 4.2, Albumin/Globulin Ratio 0.4 L 07/02/21 04:50: Total Creatine Kinase 21 L, Triglycerides 220 H 07/02/21 11:34: POC Glucose 278 H Micro: Microbiology 06/26/21 12:55 Blood Culture (Wb) - Right Hand Blood Culture - Final No growth in 5 days. 06/26/21 12:55 Blood Culture (Wb) - Left Wrist Blood Culture - Final No growth in 5 days. 06/25/21 07:40 Sputum, Induced/Lukens Gram Stain - Final 06/25/21 07:40 Sputum, Induced/Lukens Respiratory Culture - Final Presumptive C albicans 06/15/21 14:15 Blood Culture (Wb) - Left Hand Blood Culture - Final No growth in 5 days. 06/15/21 13:43 Blood Culture (Wb) - Anticubital Left Blood Culture - Final No growth in 5 days. 06/16/21 09:43 Sputum, Expectorated/Coughed Gram Stain - Final 06/16/21 09:43 Sputum, Expectorated/Coughed Respiratory Culture - Preliminary Possible Fungus 06/16/21 09:43 Urine, Clean Catch Streptococcus pneumoniae Antigen (M - Final 06/16/21 09:43 Urine, Clean Catch Legionella Antigen - Final ABG Data ABG results: ABG 07/02/21 05:21 Specimen Type ART Sample Site L Radial pH 7.52 H Bicarbonate Actual 35.7 H Total CO2 37 Base Excess 13 H O2 Saturation 90 L O2 % 75 ABG pCO2 43.6 ABG pO2 53 L Babar Test N/A Respiration Rate 12 O2 Delivery Device Adult Vent Vent Mode APRV Clinical Comments PHIGH22 THIGH4.5 Radiography Diagnostic Testing: Radiology Impression Chest X-Ray 07/01/21 14:17 IMPRESSION: New subcutaneous emphysema and pneumomediastinum since the previous study Stable appearance of the support lines and tubes Persistent diffuse opacification throughout both lung cardenas with stable nonspecific pleural thickening in the apices Electronically Signed: Frantz Shepherd MD at 16:43 EDT , Service support , Physical Exam Const Constitutional Narrative: intubated and sedated. Resp normal respiratory effort, no retractions and no use of accessory muscles Cardio regular rate, regular rhythm, S1 normal heart sound and S2 normal heart sound GI normal to inspection, nondistended, normoactive bowel sounds, soft to palpation, non-tender and non-distended Assessment & Plan Assessment/Plan (1) Acute respiratory failure with hypoxia: (2) COVID-19: (3) Microscopic polyangiitis with granulomatosis: PLAN: 1. acute hypoxic respiratory failure 2/2 COVID 19 intubated on 06/25 FiO2 90% on pip.tazo for 2ndary infection unvaccinated. Sx began 06/07, isolation completed. 2. COVID 19 completed remdesivir on dexamethasone for 2nd time starting 06/27 3. polyangitis with granulomatosis on hydroxychloroquine resume prednisone after completion of dexamethasone. 4. VTE prophylaxis: LMWH Charges/Coding Visit Charges Inpatient E&M: 23932 Subs Hosp L2
[2021-07-02 13:14] LABS: Pathologist Review Reviewed
[2021-07-02] MEDS: hydrALAZINE 20 MG/ML Vial 10 MG IV (13:36)
--- NOTE | 2021-07-02 16:06 | EKG12_ITS ---
Test Reason : ARRHYTHMIA Blood Pressure : / mmHG Vent. Rate : 146 BPM Atrial Rate : 078 BPM P-R Int : 000 ms QRS Dur : 108 ms QT Int : 288 ms P-R-T Axes : 000 -56 147 degrees QTc Int : 448 ms Atrial fibrillation with premature ventricular or aberrantly conducted complexes Left anterior fascicular block Septal infarct (cited on or before 28-JUN-2021) Confirmed by LETY CHILEL, SAMMI ([id number]), food editor JENNI DELCID ([id number]) on 07/06/2021 10:20:12 AM Referred By: Confirmed By:SAMMI DAVIDSON MD
[2021-07-02] MEDS: 0.9% Saline Lock 10 ML Syringe IV (16:29)
[2021-07-02] MEDS: Amiodarone 360 MG in Dextrose 5% Viaflo Bag 192.8 ML 33.3 MG CONT INF (16:53)
[2021-07-02] MEDS: Metoprolol Tartrate 5 MG/5 ML Vial 2.5 MG IV (17:45)
--- NOTE | 2021-07-02 18:29 | EKG12_ITS ---
Test Reason : RHYTHM CHANGE Blood Pressure : / mmHG Vent. Rate : 087 BPM Atrial Rate : 087 BPM P-R Int : 164 ms QRS Dur : 112 ms QT Int : 406 ms P-R-T Axes : 061 -63 083 degrees QTc Int : 488 ms Sinus rhythm with marked sinus arrhythmia with Premature supraventricular complexes Left anterior fascicular block Nonspecific ST abnormality Abnormal ECG Confirmed by LETY CHILEL, SAMMI ([id number]), technical editor JENNI DELCID ([id number]) on 07/06/2021 10:19:57 AM Referred By: Confirmed By:SAMMI DAVIDSON MD
[2021-07-02 18:56] LABS: Bedside Glucose 315 mg/dL (70-110)
[2021-07-02] MEDS: Amitriptyline 25 MG Tablet 50 MG GT (21:06)
[2021-07-02] MEDS: Amiodarone 360 MG in Dextrose 5% Viaflo Bag 192.8 ML 16.7 MG CONT INF (22:59)
[2021-07-02] MEDS: Propofol 10MG/Ml 1,000 MG/100 ML Bottle 11.5 MG CONT INF (23:30)
[2021-07-03] VITALS (18 sets, daily range): BP systolic 96–174; BP diastolic 56–116; PULSE 54–86; RESP 11–19; TEMP 36.4–36.6; O2SAT 90–93
[2021-07-03] MEDS: Chlorhexidine 480 ML 15 ML PO ×2 (00:32→08:20)
[2021-07-03] MEDS: Vital AF 1.2 Cal Liquid 1,000 ML 55 ML GT (00:45)
[2021-07-03] MEDS: Insulin Lispro 100 UNIT/ML INSULN.PEN SC ×3 (00:59→11:48)
[2021-07-03 01:11] LABS: Bedside Glucose 246 mg/dL (70-110)
[2021-07-03 04:46] LABS: Allen Test Positive; Base Excess 9 mmol/L (-2 to +2); Bicarbonate 32.8 mmol/L (22-26); Blood Gas Specimen Type ART; FI02 80; Mode BiLevel; O2 Delivery Device Adult Vent; PO2 66 mmHG (75-100); RR 11; SITE L Radial; SO2 93 % (95-99); Total Carbon Dioxide 34 mmol/L; pCO2 48.7 mmHg (35-45); pH 7.44 (7.35-7.45)
[2021-07-03] MEDS: Furosemide 40 MG/4 ML Vial IV (06:23)
[2021-07-03 06:24] LABS: Hematocrit 35.4 % (37-47); Mean Corp Hgb Conc 31.1 g/dL (32-36); Mean Corpuscular Hgb 29.3 pg (27.0-32.0); Mean Corpuscular Volume 94.4 fL (81-99); Mean Platelet Vol. 10.5 fl (6.2-12.0); POSITIVE COUNT YES; POSITIVE DIFFERENTIAL YES; POSITIVE MORPHOLOGY YES; Platelet Count 263 K/mm3 (150-450); RBC Distribution Width CV 14.4 % (11.6-14.6); RBC Distribution Width SD 49.4 fl (35.1-43.9); Red Blood Count 3.75 M/mm3 (4.2-5.4); White Blood Count 11.3 K/mm3 (4.4-11.0)
[2021-07-03 06:27] LABS: Differential Indicated MANUAL DIFF
[2021-07-03] MEDS: Propofol 10MG/Ml 1,000 MG/100 ML Bottle 11.5 MG CONT INF (06:28)
[2021-07-03 06:36] LABS: Bedside Glucose 193 mg/dL (70-110)
[2021-07-03 06:42] LABS: ALB/GLOB Ratio 0.4 RATIO (0.9-2.4); AST(SGOT) 21 U/L (15-37); Alanine Aminotransfer ALT/SGPT 46 U/L (13-56); Albumin, Serum 1.5 g/dL (3.2-5.0); Alkaline Phosphatase 51 U/L (45-117); Anion Gap 5 (5-15); BUN 59 mg/dL (7-18); BUN/Creat Ratio 79.3 RATIO (10-20); Calcium,Total 8.5 mg/dL (8.5-10.1); Chloride 107 mmol/L (98-107); Creatinine, Serum 0.74 mg/dL (0.55-1.02); EST Glomerular Filtration Rate 83 mL/min (>60); Est Glom Filt Rate - Afr Amer 101 mL/min (>60); Estimated Creatinine Clearance 79.21 ml/min; Glucose 224 mg/dL (74-106); Potassium 3.8 mmol/L (3.5-5.1); Protein, Total 5.5 g/dL (6.4-8.2); Sodium Level 146 mmol/L (136-145)
[2021-07-03 06:56] LABS: Total Cells Counted 100 (MANUAL DIFF)
[2021-07-03 06:57] LABS: Lymphocyte 2 % (19-41); Metamyelocyte 2 % (0-1); Monocyte 1 % (0-10); Neutrophil-Band 2 % (0-5); Neutrophil-Segmented 92 % (47-70); Nucleated Red Bld Cells,Manual 1 % (0-5); Promyelocyte 1 % (0-0)
[2021-07-03 06:58] LABS: Platelet Estimate ADEQUATE (ADEQ); Red Cell Morphology NORM C+C NORMAL (NORM C&C)
[2021-07-03 06:59] LABS: Absolute Lymphocyte Count 0.23 X10^3/uL (0.83-4.51); Absolute Neutrophil Count 10.6 X10^3/uL (2.0-7.7); Lymphocyte # 0.23 X10^3/ul (0.83-4.51); Neutrophil # 10.58 X10^3/uL (2.7-7.7)
[2021-07-03] MEDS: TITRATION PARAMETER CHANGE 1 EACH IV ×2 (08:08→08:09)
[2021-07-03] MEDS: Potassium Chloride Oral Soln 20 MEQ/15 ML UDC 40 MEQ PO (08:16)
[2021-07-03] MEDS: Enoxaparin 40 MG/0.4 ML Syringe SC (08:16)
[2021-07-03] MEDS: MILNACIPRAN HCL 50 MG TABLET GT (08:17)
[2021-07-03] MEDS: amLODIPine 10 MG Tablet GT (08:17)
[2021-07-03] MEDS: Pregabalin 75 MG Capsule 150 MG GT (08:17)
[2021-07-03] MEDS: QUEtiapine 100 MG Tablet GT (08:18)
[2021-07-03] MEDS: Hydroxychloroquine 200 MG Tablet GT (08:18)
[2021-07-03] MEDS: Senna/Docusate Sodium 1 Tablet 2 TABLET GT (08:18)
[2021-07-03] MEDS: Famotidine 20 MG Tablet GT (08:18)
[2021-07-03] MEDS: dexAMETHasone 4 MG Tablet 6 MG GT (08:18)
[2021-07-03] MEDS: Carvedilol 12.5 MG Tablet GT (08:19)
[2021-07-03] MEDS: Polyethylene Glycol 3350 17 GM PACKET GT (08:20)
--- NOTE | 2021-07-03 08:48 | PN.CC_ITS ---
Assessment & Plan Assessment/Plan (1) Acute respiratory failure with hypoxia: (2) COVID-19: PLAN: RECOMMENDATIONS: 1. Continue to wean FiO2 and PEEP to maintain oxygen saturations at or above 90%. 2. Continue APRV with daily ABG to assess ventilation. Attempt to decrease T high possible 3. Monitor off antimicrobials per ID recommendations. 4. Continue Lovenox twice daily. 5. Continue PRN bronchodilator therapy. Continue Seroquel to help with vent synchrony. 6. Continue diuresis as tolerated by hemodynamics and renal function. 7. Continue tube feeds as tolerated. Electrolyte repletion as indicated 8. Continue appropriate GI prophylaxis. 9. Continue baseline antihypertensive medications, aggressive pain control IMPRESSIONS: 1. Acute hypoxemic respiratory failure secondary to COVID-19 pneumonia The patient to date has completed a 5-day treatment course of remdesivir along with 10 days of Decadron. She remains on antimicrobials, which will be continued per ID recommendations. Despite the aforementioned interventions, the patient has not made any significant improvement from a respiratory perspective and has remained BiPAP dependent for multiple days. Given her lack of clinical improvement, the decision was made to proceed with intubation on June 25. Continue APRV to help with oxygenation. ABG shows adequate oxygenation and ventilation. Will attempt to wean P high as tolerated given pneumomediastinum. Lack of apical aeration appears to be secondary to scar tissue. We will continu e Seroquel. Tube feeds will be continued as tolerated. Continue Lasix with a goal of -500 to 1 L a day. A second round of Decadron will also be completed. 2. History of MPA The patient at her baseline is on prednisone and hydroxychloroquine. Patient is currently on Decadron therapy. 3. Hypertension/fibromyalgia/depression/anxiety Complicates care, management, recovery and prognosis. Continue home medications as indicated. Electrolyte repletion as indicated by labs. Patient's blood pressure appears to be significantly elevated. Home medications will be reinitiated. TIME: 35 minutes of critical care time, inclusive of procedures, was spent addressing the patient's acute hypoxemic respiratory failure secondary to COVID- 19 pneumonia, review of all data, and collaboration with care team. (7:20 AM to 8:20 AM) Subjective Subjective Patient did okay overnight. Patient has had significant tachycardia in the e vening, but reverted to sinus rhythm around 6 PM and has persisted. Patient continues to have significant subcutaneous emphysema and had a significant fever overnight. Objective Data Objective Data Vital Signs: Vital Signs Temp Pulse Resp BP Pulse Ox 36.5 C L 80 17 120/74 93 07/03/21 00:00 07/03/21 06:44 07/03/21 06:44 07/03/21 06:00 07/03/21 06:44 Oxygen Flow Rate (L/min) 100 Oxygen Delivery Method Mechanical Ventilator Weight: 75.4 kg Body Mass Index (BMI) 26.3 Intake & Output: Intake and Output for Last 24 Hours 07/01/21 07/02/21 07/03/21 23:59 23:59 23:59 Intake Total 2838.07 / 2859.77 3199.16 / 3549.02 979.98 / 979.98 Output Total 2550 / 2550 2130 / 2130 250 / 250 Balance 288.07 / 309.77 1069.16 / 1419.02 729.98 / 729.98 Lab / Micro Data Result Diagrams: 07/03/21 06:15 07/03/21 06:15 Labs: Laboratory Results - last 24 hr 07/02/21 04:50: Diff Path Review Reviewed 07/02/21 11:34: POC Glucose 278 H 07/02/21 18:47: POC Glucose 315 H 07/03/21 00:58: POC Glucose 246 H 07/03/21 05:52: POC Glucose 193 H 07/03/21 06:15: WBC 11.3 H, RBC 3.75 L, Hgb 11.0 L, Hct 35.4 L, MCV 94.4, MCH 29.3, MCHC 31.1 L, RDW Std Deviation 49.4 H, RDW Coeff of Allyssa 14.4, Plt Count 263, MPV 10.5, Neut % (Auto) Not Reportable, Absolute Neuts (auto) 10.6 H, Absolute Lymphs (auto) 0.23 L, Total Counted 100, Neutrophils % (Manual) 92 H, Band Neutrophils % 2, Lymphocytes % (Manual) 2 L, Monocytes % (Manual) 1, Metamyelocytes % 2 H, Promyelocytes % 1 H, Nucleated RBCs/100 WBC 1, Diff Path Review May , Platelet Estimate ADEQUATE, RBC Morphology NORM C+C 07/03/21 06:15: Sodium 146 H, Potassium 3.8, Chloride 107, Carbon Dioxide 34.0 H , Anion Gap 5, BUN 59 H, Creatinine 0.74, Estim Creat Clear Calc 79.21, Est GFR (MDRD) Af Amer 101, Est GFR (MDRD) Non-Af 83, BUN/Creatinine Ratio 79.3 H, Glucose 224 H, Calcium 8.5, Total Bilirubin 0.40, AST 21, ALT 46, Alkaline Phos phatase 51, Total Protein 5.5 L, Albumin 1.5 L, Globulin 4.0, Albumin/Globulin Ratio 0.4 L Micro: Microbiology 06/26/21 12:55 Blood Culture (Wb) - Right Hand Blood Culture - Final No growth in 5 days. 06/26/21 12:55 Blood Culture (Wb) - Left Wrist Blood Culture - Final No growth in 5 days. 06/25/21 07:40 Sputum, Induced/Lukens Gram Stain - Final 06/25/21 07:40 Sputum, Induced/Lukens Respiratory Culture - Final Presumptive C albicans 06/15/21 14:15 Blood Culture (Wb) - Left Hand Blood Culture - Final No growth in 5 days. 06/15/21 13:43 Blood Culture (Wb) - Anticubital Left Blood Culture - Final No growth in 5 days. 06/16/21 09:43 Sputum, Expectorated/Coughed Gram Stain - Final 06/16/21 09:43 Sputum, Expectorated/Coughed Respiratory Culture - Preliminary Possible Fungus 06/16/21 09:43 Urine, Clean Catch Streptococcus pneumoniae Antigen (M - Final 06/16/21 09:43 Urine, Clean Catch Legionella Antigen - Final ABG Data ABG results: ABG 07/03/21 04:41 Specimen Type ART Sample Site L Radial pH 7.44 Bicarbonate Actual 32.8 H Total CO2 34 Base Excess 9 H O2 Saturation 93 L O2 % 80 ABG pCO2 48.7 H ABG pO2 66 L Babar Test Positive Respiration Rate 11 O2 Delivery Device Adult Vent Vent Mode BiLevel Clinical Comments Physical Exam Const Constitutional Narrative: RASS -2 to +2 General Appearance: well developed, intubated and patient mechanically ventilated Neck full ROM Neck Narrative: Chest inspection of chest normal Chest: symmetrical chest wall rise and crepitus clavicle right (With extension into the neck) and sternum Resp normal respiratory effort and no use of accessory muscles Effort and Inspection: able to speak in complete sentences Auscultation: diminished lung sounds; Negative for rales, rhonchi or wheezes Percussion: Negative for dullness Cardio regular rate, regular rhythm, S1 normal heart sound, S2 normal heart sound, no murmurs, no rub and no gallops GI normal to inspection, nondistended, normoactive bowel sounds no CVA tenderness Extremity normal to inspection General Extremity: Negative for clubbing, cyanosis or edema Skin no rashes or lesions noted Neuro CN's II-XII intact bilaterally, moves all extremities and no focal motor deficits Psych cooperative and affect normal Psych Narrative: intubated, sedated. Charges/Coding Procedures Hospitalists Procedures: [id number] Critial Care 1st Hr
[2021-07-03 11:46] LABS: Bedside Glucose 251 mg/dL (70-110)
[2021-07-03] MEDS: CHLORHEXIDINE GLUC 2% CLOTH 1 EACH TOWELETTE TOPICAL (11:46)
[2021-07-03] MEDS: 0.9% Saline Lock 10 ML Syringe IV (11:51)
--- NOTE | 2021-07-03 13:28 | CASEMGMT ---
Pt's family here, SW offered support, remains available. BING Swartz
--- NOTE | 2021-07-03 14:03 | PN.HOSP_ITS ---
Subjective Subjective Still on high FiO2 with the vent. Objective Data Objective Data Vital Signs: Vital Signs Temp Pulse Resp BP Pulse Ox 36.4 C L 77 16 139/89 H 90 07/03/21 12:00 07/03/21 12:00 07/03/21 12:00 07/03/21 12:00 07/03/21 12:00 Oxygen Flow Rate (L/min) 100 Oxygen Delivery Method Mechanical Ventilator Weight: 75.4 kg Body Mass Index (BMI) 26.3 Intake & Output: Intake and Output for Last 24 Hours 07/01/21 07/02/21 07/03/21 23:59 23:59 23:59 Intake Total 2838.07 / 2859.77 3199.16 / 3649.02 1946.74 / 1946.74 Output Total 2550 / 2550 2130 / 2130 1250 / 1250 Balance 288.07 / 309.77 1069.16 / 1519.02 696.74 / 696.74 Lab / Micro Data Result Diagrams: 07/03/21 06:15 07/03/21 06:15 Labs: Laboratory Results - last 24 hr 07/02/21 18:47: POC Glucose 315 H 07/03/21 00:58: POC Glucose 246 H 07/03/21 05:52: POC Glucose 193 H 07/03/21 06:15: WBC 11.3 H, RBC 3.75 L, Hgb 11.0 L, Hct 35.4 L, MCV 94.4, MCH 29.3, MCHC 31.1 L, RDW Std Deviation 49.4 H, RDW Coeff of Allyssa 14.4, Plt Count 263, MPV 10.5, Neut % (Auto) Not Reportable, Absolute Neuts (auto) 10.6 H, Absolute Lymphs (auto) 0.23 L, Total Counted 100, Neutrophils % (Manual) 92 H, Band Neutrophils % 2, Lymphocytes % (Manual) 2 L, Monocytes % (Manual) 1, Metamyelocytes % 2 H, Promyelocytes % 1 H, Nucleated RBCs/100 WBC 1, Diff Path Review February, Platelet Estimate ADEQUATE, RBC Morphology NORM C+C 07/03/21 06:15: Sodium 146 H, Potassium 3.8, Chloride 107, Carbon Dioxide 34.0 H , Anion Gap 5, BUN 59 H, Creatinine 0.74, Estim Creat Clear Calc 79.21, Est GFR (MDRD) Af Amer 101, Est GFR (MDRD) Non-Af 83, BUN/Creatinine Ratio 79.3 H, Glucose 224 H, Calcium 8.5, Total Bilirubin 0.40, AST 21, ALT 46, Alkaline Phosphatase 51, Total Protein 5.5 L, Albumin 1.5 L, Globulin 4.0, Albumin/Globulin Ratio 0.4 L 07/03/21 11:42: POC Glucose 251 H Micro: Microbiology 06/16/21 09:43 Sputum, Expectorated/Coughed Gram Stain - Final 06/16/21 09:43 Sputum, Expectorated/Coughed Respiratory Culture - Final Aspirgillus fumigatus 06/26/21 12:55 Blood Culture (Wb) - Right Hand Blood Culture - Final No growth in 5 days. 06/26/21 12:55 Blood Culture (Wb) - Left Wrist Blood Culture - Final No growth in 5 days. 06/25/21 07:40 Sputum, Induced/Lukens Gram Stain - Final 06/25/21 07:40 Sputum, Induced/Lukens Respiratory Culture - Final Presumptive C albicans 06/15/21 14:15 Blood Culture (Wb) - Left Hand Blood Culture - Final No growth in 5 days. 06/15/21 13:43 Blood Culture (Wb) - Anticubital Left Blood Culture - Final No growth in 5 days. 06/16/21 09:43 Urine, Clean Catch Streptococcus pneumoniae Antigen (M - Final 06/16/21 09:43 Urine, Clean Catch Legionella Antigen - Final ABG Data ABG results: ABG 07/03/21 04:41 Specimen Type ART Sample Site L Radial pH 7.44 Bicarbonate Actual 32.8 H Total CO2 34 Base Excess 9 H O2 Saturation 93 L O2 % 80 ABG pCO2 48.7 H ABG pO2 66 L Babar Test Positive Respiration Rate 11 O2 Delivery Device Adult Vent Vent Mode BiLevel Clinical Comments Physical Exam Const Constitutional Narrative: unresponsive. HEENT Head and Scalp: normocephalic Resp normal respiratory effort, no retractions and no use of accessory muscles Cardio regular rate, regular rhythm, S1 normal heart sound and S2 normal heart sound GI normal to inspection, nondistended, normoactive bowel sounds, soft to palpation, non-tender and non-distended Extremity normal to inspection Neuro Sensorium / Orientation: awake and alert Assessment & Plan Assessment/Plan (1) Acute respiratory failure with hypoxia: (2) COVID-19: (3) Microscopic polyangiitis with granulomatosis: PLAN: 1. acute hypoxic respiratory failure 2/2 COVID 19 intubated on 06/25 FiO2 0% on pip.tazo for 2ndary infection unvaccinated. Sx began 06/07, isolation completed. terminal extubation planned for today 2. COVID 19 completed remdesivir on dexamethasone for 2nd time starting 06/27 3. polyangitis with granulomatosis on hydroxychloroquine resume prednisone after completion of dexamethasone. 4. VTE prophylaxis: LMWH Charges/Coding Visit Charges Inpatient E&M: 69799 Subs Hosp L2
[2021-07-03] MEDS: LORazepam 2 MG/ML Syringe IV (14:21)
[2021-07-03] MEDS: Morphine 2 MG/ML Syringe IV (14:21)
[2021-07-03 14:48] LABS: Pathologist Review Reviewed
--- NOTE | 2021-07-03 14:56 | PCM.DEATH ---
Preliminary Cause of Preliminary Cause of Preliminary Cause of : COVID 19. Principle Diagnosis Problem List: Active and Suspected Problems (Updated 06/18/21 @ 14:[address] Franky Almonte MD) Microscopic polyangiitis with granulomatosis (Acute) Acute respiratory failure with hypoxia (Acute) Bilateral pneumonia (Acute) Hypoxia (Acute) Acute respiratory insufficiency (Acute) COVID-19 (Acute) Hyponatremia (Acute) COVID-19 (Acute) Hospital Course 36-year-old female presents June 15 with shortness of breath. Patient was sick center 9 days prior. Patient has history of microscopic polyangiitis and was on her toxin. Patient was unvaccinated. She was positive for COVID-19. Patient was intubated on June 25. Patient failed to progress. Patient was placed on Pipracil/tazobactam. Family was involved and today the decision was made to terminally extubate at 1420 and then was pronounced at 1436. Visit Charges Inpatient E&M: [id number] Disch Hosp
--- NOTE | 2021-07-03 15:28 | NURSING ---
1400 family present in pt room. questions answered, reassurance given 1420 extubated per RT, meds given. 1421 family present, reassurance given. 1436 apneic, asystolic
== END 2021-07-03 14:36 | DRG 207 ==
LOC: ED 17:16 → MS3 17:20 → ICU 06-23 13:23
PROVIDERS: Emergency Medicine; Family Medicine; Internal Medicine Critical Care Medicine; Student in an Organized Health Care Education/Training Program; Admitting Provider Internal Medicine; Emergency Provider Student in an Organized Health Care Education/Training Program; PCP Internal Medicine
DX: U07.1 COVID-19 (principal); J12.82 Pneumonia due to coronavirus disease 2019; J96.01 Acute respiratory failure with hypoxia; J69.0 Pneumonitis due to inhalation of food and vomit; N17.9 Acute kidney failure, unspecified; J93.9 Pneumothorax, unspecified; E87.1 Hypo-osmolality and hyponatremia; M31.30 Wegener's granulomatosis without renal involvement; J98.2 Interstitial emphysema; I10 Essential (primary) hypertension; E78.5 Hyperlipidemia, unspecified; M79.7 Fibromyalgia; M19.90 Unspecified osteoarthritis, unspecified site; H91.92 Unspecified hearing loss, left ear; G47.30 Sleep apnea, unspecified; F32.9 Major depressive disorder, single episode, unspecified; F41.9 Anxiety disorder, unspecified; Z79.52 Long term (current) use of systemic steroids; Z79.899 Other long term (current) drug therapy; Z85.3 Personal history of malignant neoplasm of breast
CPT/HCPCS: 31500; 31720; 36415; 36600; 71045; 71275; 80048; 80053; 80202; 82550; 82803; 82962; 83605; 83735; 84100; 84443; 84478; 84484; 85025; 85027; 85379; 87040; 87070; 87107; 87205; 87449; 87635; 87641; 93005; 94002; 94003; 94640; 94660; 94762; 97110; 97161; 97164; 97166; 97168; 97530; 97802; 97803; 99251; 99284; J7030; J7040; J7050; Q9967; U0005; A4216; G0463; J0295; J0330; J1940; J3010; U0003